=== PATIENT | female | born 1930 | race Caucasian/White ===

== ENCOUNTER 2018-02-17 18:47 | Inpatient (IN) | payer MEDICARE, BC ==
[~2018-02-17] VITALS: Ht 152.4 cm; Wt 77.3 kg
--- NOTE | 2018-02-17 21:43 | PDOC ---
Exam Note: Donaldo Note: Please also refer to the separate dictated note~for this date of service dictated separately.~Patient seen individually. Discussed the patient with Nursing staff reviewed the chart.~Reviewed interim history and current functioning. Reviewed vital signs,~Labs/ Radiology~and current medications noted below. Continue current treatment with the changes noted in the dictated addendum note Current Medications: Meds: Current Medications Acetaminophen (Tylenol) 650 mg PRN Q6HRS PRN PO PAIN / TEMP; Start 02/17/18 at 21:45; Status UNV Multi-Ingredient Ointment (Analgesic [place]) 1 ashely PRN QID PRN TP MUSCLE PAIN; Start 02/17/18 at 21:45; Status UNV Al Hydroxide/Mg Hydroxide (Mylanta Plus Xs) 15 ml PRN AFTMEALHC PRN PO DYSPEPSIA; Start 02/17/18 at 21:45; Status UNV Magnesium Hydroxide (Milk Of Magnesia) 2,400 mg PRN QHS PRN PO CONSTIPATION; Start 02/17/18 at 21:45; Status UNV I have reviewed the current psychotropics carefully including drug interactions. Risk benefit ratio favors no change other than as noted in my dictated progress note. CINTHIA SOMERS MD Feb 17, 2018 21:43
[2018-02-17] MEDS ORDERED: METHYL SALICYLATE/MENTHOL TOPICAL OINTMENT 29GM TUBE. TP PRN (21:45)
[2018-02-17] MEDS ORDERED: ACETAMINOPHEN 325 MG TABLET PO PRN (21:45)
[2018-02-17] MEDS ORDERED: MAG HYDROX/AL HYDROX/SIMETH 30 ML ORAL.SUSP PO PRN (21:45)
[2018-02-17] MEDS ORDERED: MAGNESIUM HYDROXIDE 2,400 MG/30 ML ORAL.SUSP. PO PRN (21:45)
[2018-02-17] MEDS ORDERED: ASPI-630 PO (21:52)
[2018-02-17 22:24] LABS: BASO % 0 % (0-3); EOS # 0.7 x10^3/uL (0.0-0.7); EOS % 9 % (0-3); HEMATOCRIT 37.8 % (36.0-47.0); HEMOGLOBIN 12.6 g/dL (12.0-15.5); LYMPH # 2.3 x10^3/uL (1.0-4.8); LYMPH % 29 % (24-48); MEAN CORPUSCULAR HEMOGLOBIN 32 pg (25-35); MEAN CORPUSCULAR HGB CONC 33 g/dL (31-37); MEAN CORPUSCULAR VOLUME 97 fL (79-100); MONO # 0.5 x10^3/uL (0.0-1.1); MONO % 6 % (0-9); NEUT # 4.4 x10^3uL (1.8-7.7); NEUT % 56 % (31-73); PLATELET COUNT 208 x10^3/uL (140-400); RED BLOOD COUNT 3.89 x10^6/uL (3.50-5.40); RED CELL DISTRIBUTION WIDTH 13.1 % (11.5-14.5); WHITE BLOOD COUNT 7.9 x10^3/uL (4.0-11.0)
[2018-02-17] MEDS ORDERED: ASCO500T2 PO (22:30)
[2018-02-17] MEDS ORDERED: CHOL10003 PO (22:30)
[2018-02-17] MEDS ORDERED: ATOR10TA60 PO (22:30)
[2018-02-17] MEDS ORDERED: CARV3.122 PO (22:30)
[2018-02-17] MEDS ORDERED: ACET325T9 PO (22:30)
[2018-02-17] MEDS ORDERED: CYAN10005 PO (22:30)
[2018-02-17] MEDS ORDERED: MEMA10TA PO (22:30)
[2018-02-17] MEDS ORDERED: FLUV100T2 PO (22:30)
[2018-02-17] MEDS ORDERED: TRAZ-85 PO (22:30)
[2018-02-17] MEDS ORDERED: LACT1CAP6 PO (22:30)
[2018-02-17] MEDS ORDERED: LISI40TA PO (22:30)
[2018-02-17] MEDS ORDERED: OMEP20TA8 PO (22:30)
[2018-02-17 22:39] LABS: ALBUMIN 3.9 g/dL (3.4-5.0); ALBUMIN/GLOBULIN RATIO 1.3 (1.0-1.7); CALCIUM 8.8 mg/dL (8.5-10.1); GFR 52.7; MAGNESIUM 1.8 mg/dL (1.8-2.4); TOTAL BILIRUBIN 0.5 mg/dL (0.2-1.0)
[2018-02-17 22:49] VITALS: BP 134/55
[2018-02-17 22:55] LABS: % BASOS 1 % (0-3); % EOS 2 % (0-5); % LYMPHS 28 % (24-48); % METAS 1 % (0-0); % MONOS 9 % (0-10); % SEGS 59 % (35-66)
[2018-02-17 22:56] LABS: PLT ESTIMATE ADEQUATE (ADEQUATE)
--- NOTE | 2018-02-17 23:25 | NUR ---
Admission Note with Justification for Admission to [facility] Patient admitted to [facility] for protective oversight for emergency stabilization of acute psychiatric crisis. Pt admitted from: [place] Mode of arrival: POV Accompanied By: Family Precipitating behaviors that initiated intake and admission: Increased confusion, Anxious, Paranoid,Thinks someone is stealing her things/rearranging her room. Thinks all of her clothes are wet (when they are not wet). Description of failure of out patient attempts at stabilization in previous setting list behavior and medication trials: Behaviors and assessment findings upon admission: Patient is calm and compliant during initial interaction. Patient is pleasant during conversation and admission assessment. Patient alert and oriented to name, year and that she is in a hospital. Patient has no wounds. patient lung sounds are clear, heart is regular and bowels are active x4. Patient denies any pain at this time. Patient remains in room laying in bed at this time. Plan: Admit for protective oversight for adjustment and stabilization of medications, behaviors and mood. Intense treatment regimen including groups, medication adjustments, therapy, consistent regimen for ADL's, self care, and sleep hygiene. Daily monitoring by Inpatient staff, Psychiatry, and Medical Physician.
[2018-02-18 05:57] VITALS: BP 133/67
--- NOTE | 2018-02-18 06:27 | EKG ---
[address] [address] Test Date: 2018-02-18 Test Time: 05:46:44 Pat Name: RYAN SEGOVIA Department: Room: [address] [place] [address] Gender: F Medical Records Field Technician: SHELLY : 1930 Requested By: CINTHIA SOMERS Order Number: [id number] Reading MD: Pasha Guerrero MD Measurements Intervals Reads Landing Rate: 79 P: 71 OK: 140 QRS: 1 QRSD: 78 T: 58 QT: 372 QTc: 433 Interpretive Statements SINUS RHYTHM Electronically Signed On 02-18-2018 10:26:26 CDT by Pasha Guerrero MD
[2018-02-18] MEDS: CYANOCOBALAMIN (VITAMIN B-12) 1,000 MCG TABLET. PO SCH (07:57)
[2018-02-18] MEDS: PANTOPRAZOLE 40 MG TABLET. PO SCH (07:57)
[2018-02-18] MEDS: ASPIRIN 81 MG TAB.CHEW PO SCH (07:57)
[2018-02-18] MEDS: MEMANTINE 5 MG TABLET. PO SCH ×2 (07:57→20:35)
[2018-02-18] MEDS: ASCORBIC ACID 500 MG TABLET PO SCH (07:57)
[2018-02-18] MEDS: LACTOBACILLUS RHAMNOSUS GG 1 CAPSULE. PO SCH (07:57)
[2018-02-18] MEDS: LISINOPRIL 20 MG TABLET PO SCH (07:58)
[2018-02-18] MEDS: ACETAMINOPHEN 325 MG TABLET PO SCH ×3 (07:58→20:35)
[2018-02-18] MEDS: CARVEDILOL 3.125 MG TABLET PO SCH ×2 (07:58→17:08)
[2018-02-18] MEDS: CHOLECALCIFEROL (VITAMIN D3) 1,000 UNIT TABLET PO SCH (07:59)
[2018-02-18 13:48] LABS: THYROID STIM HORMONE (TSH) 1.684 uIU/mL (0.358-3.740)
[2018-02-18 16:13] VITALS: BP 136/68
[2018-02-18] MEDS ORDERED: DEXTROSE 50% 25 GM / 50ML DISP.SYRIN. IV PRN (18:15)
[2018-02-18 20:08] LABS: THYROXINE 6.2 ug/dL (4.5-12.0)
--- NOTE | 2018-02-18 20:22 | CONS ---
DATE OF CONSULTATION: 02/18/2018 REASON FOR CONSULTATION: Medical management. HISTORY OF PRESENT ILLNESS: The patient is an 87-year-old female, who was basically evaluated at the [facility] Emergency Room. She normally lives at [facility] in an independent living apartment. Staff at [facility] had made contact the patient's son who is also her DPOA, they report that she has been demonstrating change in behavior over the last few weeks. She is reporting that an unknown person is coming into her apartment and moving her belongings around in her drawer. Son reports the patient will often misplace her watches and clothing items and when she finds them she will blame this unknown intruder for moving her things. The patient is also calling staff up to 10 times each day, not remembering that she had just called. The patient with dementia diagnosed, but son reported that perhaps dementia is worsening. She was also noted to be cries often and is sad at the of a fellow [facility] member. The son expresses his concern about the patient's level of paranoia and the community requested a psychiatric evaluation to determine whether the patient is able to live in an independent living apartment or perhaps needs to be changed to a higher level of care. She was evaluated in the [facility] Emergency Room and was transferred to [facility] for inpatient psychiatric stabilization. PAST MEDICAL HISTORY: Her past medical history is significant for atrial fibrillation and dementia, diverticulitis of colon, type 2 diabetes, colon polyps, GI bleed, history of TIA, hyperlipidemia, hypertension, osteoarthritis, osteoporosis. PAST SURGICAL HISTORY: Past surgical history is significant for excision of a cyst from the back, colonoscopy, hysterectomy, laparoscopic gastrostomy with repair of ulcer and EEG. FAMILY HISTORY: Family history is positive for cancer in her father. SOCIAL HISTORY: She is a . She lives in an independent skilled nursing assisted living. She never smoked, does not drink alcohol, or do recreational drugs. REVIEW OF SYSTEMS: As per history of present illness. ALLERGIES: SHE IS ALLERGIC TO CLINDAMYCIN, CODEINE, HYDROCODONE, PROPOXYPHENE, AND TRAMADOL. MEDICATIONS: She is currently on following medications: She is on atorvastatin calcium 10 mg at bedtime, carvedilol 3.125 mg twice a day, lisinopril 40 mg once a day, aspirin 81 mg once a day, Tylenol 650 mg 3 times a day, fluvoxamine maleate 100 mg p.o. b.i.d., trazodone 50 mg at bedtime, Namenda 5 mg twice a day, lactobacillus acidophilus 1 capsule daily, omeprazole 20 mg once a day, cyanocobalamin 1000 mg once a day, ascorbic acid 500 mg daily. She is also on cholecalciferol 1000 international units once a day. PHYSICAL EXAMINATION: GENERAL: When I examined her, she was sitting comfortably in her chair, eating her supper without no apparent distress. She was slightly pale, but no jaundice, cyanosis, or thyromegaly. No jugular venous distension. No lower limb edema. VITAL SIGNS: Her heart rate was 80, blood pressure was 136/68, temperature was 98.3, respiratory rate 20, and oxygen saturation was 96%. HEENT: Examination of the head, eyes, ears, nose and throat showed normocephalic, atraumatic. NECK: Supple. HEART: Showed normal first and second heart sounds with no gallop, rub or murmur. CHEST: Clear to auscultation. No crepitation or rhonchi. ABDOMEN: Distended, soft, nontender. NEUROLOGIC: She is awake, alert, but confused, seemed to be extremely paranoid and with marked flight of ideas; however, all cranial nerves are intact. EXTREMITIES: She moves extremities without difficulty. She ambulates without assistance or assistive devices. LABORATORY DATA: Her lab work showed a white cell count 7900, hemoglobin 13, hematocrit 38, MCV 97, and platelet count of 208,000 with normal manual differential. Serum sodium was 134, potassium 4, chloride 98, bicarbonate 25, anion gap of 11, BUN 15, creatinine 1, estimated GFR was 53 mL per minute, glucose 157, calcium was 8.8, magnesium was 1.8. Serum iron was 44, TIBC was 300, and percent saturation was 15%. Total bilirubin, AST, ALT, alkaline phosphatase was normal. Total protein 7, albumin 3.9. Her serum triglycerides were 71, total cholesterol and 11, LDL was 39, VLDL was 14, and HDL was 58, and the ratio was 1. Her vitamin B12 was 1241 picogram/mL. A 25-hydroxy vitamin D3 was 44 and TSH was normal at 1.84. Her Treponema pallidum antibodies were nonreactive. ASSESSMENT AND PLAN: So, basically this is an 87-year-old female patient who was [facility] on the account of increased delusion and paranoia, reporting that somebody is coming into her apartment and moving her belongings around. She is also very forgetful with marked swings in her mood. All these in a background of history of dementia. She has multiple medical problems including hypertension, hyperlipidemia, gastroesophageal reflux disease, atrial fibrillation, type 2 diabetes as well as osteoporosis and osteoarthritis. Her vital signs are stable as well as all her lab works and all her medication seemed to be appropriate, although I do not see any medication for her diabetes. We will do at least Accu-Cheks ____ 24-48 hours to make sure that her blood sugar is within normal range and I will check also hemoglobin A1c. Thank you, Dr. Voss for allowing me to participate in the care of this patient. CARISA COOK MD DR: SHIRLEY/melisa JOB#: [id number] / [id number]
[2018-02-18] MEDS: ATORVASTATIN CALCIUM 10 MG TABLET. PO SCH (20:36)
--- NOTE | 2018-02-18 20:59 | PDOC ---
Exam Note: Donaldo Note: Please also refer to the separate dictated note~for this date of service dictated separately.~Patient seen individually. Discussed the patient with Nursing staff reviewed the chart.~Reviewed interim history and current functioning. Reviewed vital signs,~Labs/ Radiology~and current medications noted below. Continue current treatment with the changes noted in the dictated addendum note Assessment: Vital Signs: Vital Signs Date Time Temp Pulse Resp B/P (MAP) Pulse Ox O2 Delivery O2 Flow Rate FiO2 02/18/18 17:08 80 136/68 02/18/18 16:13 98.3 20 96 02/17/18 22:49 Room Air I&O Intake and Output 02/18/18 07:00 Intake Total 0 ml Balance 0 ml Intake Oral 0 ml Labs: Laboratory Tests Test 02/17/18 22:00 White Blood Count 7.9 x10^3/uL (4.0-11.0) Red Blood Count 3.89 x10^6/uL (3.50-5.40) Hemoglobin 12.6 g/dL (12.0-15.5) Hematocrit 37.8 % (36.0-47.0) Mean Corpuscular Volume 97 fL (79-100) Mean Corpuscular Hemoglobin 32 pg (25-35) Mean Corpuscular Hemoglobin Concent 33 g/dL (31-37) Red Cell Distribution Width 13.1 % (11.5-14.5) Platelet Count 208 x10^3/uL (140-400) Neutrophils (%) (Auto) 56 % (31-73) Lymphocytes (%) (Auto) 29 % (24-48) Monocytes (%) (Auto) 6 % (0-9) Eosinophils (%) (Auto) 9 % (0-3) H Basophils (%) (Auto) 0 % (0-3) Neutrophils # (Auto) 4.4 x10^3uL (1.8-7.7) Lymphocytes # (Auto) 2.3 x10^3/uL (1.0-4.8) Monocytes # (Auto) 0.5 x10^3/uL (0.0-1.1) Eosinophils # (Auto) 0.7 x10^3/uL (0.0-0.7) Basophils # (Auto) 0.0 x10^3/uL (0.0-0.2) Segmented Neutrophils % 59 % (35-66) Lymphocytes % 28 % (24-48) Monocytes % 9 % (0-10) Eosinophils % 2 % (0-5) Basophils % 1 % (0-3) Metamyelocytes % 1 % (0-0) H Platelet Estimate Adequate (ADEQUATE) Sodium Level 134 mmol/L (136-145) L Potassium Level 4.0 mmol/L (3.5-5.1) Chloride Level 98 mmol/L (98-107) Carbon Dioxide Level 25 mmol/L (21-32) Anion Gap 11 (6-14) Blood Urea Nitrogen 15 mg/dL (7-20) Creatinine 1.0 mg/dL (0.6-1.0) Estimated GFR (Cockcroft-Gault) 52.7 BUN/Creatinine Ratio 15 (6-20) Glucose Level 157 mg/dL (70-99) H Calcium Level 8.8 mg/dL (8.5-10.1) Magnesium Level 1.8 mg/dL (1.8-2.4) Iron Level 44 ug/dL (50-170) L Total Iron Binding Capacity 300 ug/dL (250-450) Iron Saturation 15 % (15-34) Total Bilirubin 0.5 mg/dL (0.2-1.0) Aspartate Amino Transferase (AST) 22 U/L (15-37) Alanine Aminotransferase (ALT) 20 U/L (14-59) Alkaline Phosphatase 81 U/L (46-116) Total Protein 7.0 g/dL (6.4-8.2) Albumin 3.9 g/dL (3.4-5.0) Albumin/Globulin Ratio 1.3 (1.0-1.7) Triglycerides Level 71 mg/dL (0-150) Cholesterol Level 111 mg/dL (0-200) LDL Cholesterol, Calculated 39 mg/dL (0-100) VLDL Cholesterol, Calculated 14 mg/dL (0-40) Non-HDL Cholesterol Calculated 53 mg/dL (0-129) HDL Cholesterol 58 mg/dL (40-60) Cholesterol/HDL Ratio 1.0 Vitamin B12 Level 1241 pg/mL (247-911) H 25-Hydroxy Vitamin D Total 44.4 ng/mL (30-100) Thyroid Stimulating Hormone (TSH) 1.684 uIU/mL (0.358-3.740) Thyroxine (T4) 6.2 ug/dL (4.5-12.0) Total Triiodothyronine (TT3) 120 ng/dL (71-180) Treponema pallidum Antibody Nonreactive (Nonreactive) Current Medications: Meds: Current Medications Acetaminophen (Tylenol) 650 mg PRN Q6HRS PRN PO PAIN / TEMP; Start 02/17/18 at 21:45 Multi-Ingredient Ointment (Analgesic [place]) 1 ashely PRN QID PRN TP MUSCLE PAIN; Start 02/17/18 at 21:45 Al Hydroxide/Mg Hydroxide (Mylanta Plus Xs) 15 ml PRN AFTMEALHC PRN PO DYSPEPSIA; Start 02/17/18 at 21:45 Magnesium Hydroxide (Milk Of Magnesia) 2,400 mg PRN QHS PRN PO CONSTIPATION; Start 02/17/18 at 21:45 Acetaminophen (Tylenol) 650 mg TID PO Last administered on 02/18/18at 20:35; Start 02/18/18 at 09:00 Ascorbic Acid (Vitamin C) 1,000 mg DAILY PO Last administered on 02/18/18at 07: 57; Start 02/18/18 at 09:00 Vitamin D (Vitamin D3) 1,000 unit DAILY PO Last administered on 02/18/18at 07:59 ; Start 02/18/18 at 09:00 Cyanocobalamin (Vitamin B-12) 1,000 mcg DAILY PO Last administered on at 07:57; Start 02/18/18 at 09:00 Aspirin (Children'S Aspirin) 81 mg DAILYWBKFT PO Last administered on at 07:57; Start 02/18/18 at 08:00 Atorvastatin Calcium (Lipitor) 10 mg QHS PO Last administered on 02/18/18at 20: 36; Start 02/18/18 at 21:00 Carvedilol (Coreg) 3.125 mg BIDWMEALS PO Last administered on 02/18/18 17:08; Start 02/18/18 at 08:00 Lactobacillus Rhamnosus (Culturelle) 1 cap DAILY PO Last administered on 07:57; Start 02/18/18 at 09:00 Lisinopril (Prinivil) 40 mg DAILY PO Last administered on 02/18/18at 07:58; Start 02/18/18 at 09:00 Pantoprazole Sodium (Protonix) 40 mg DAILYAC PO Last administered on 02/18/18at 07:57; Start 02/18/18 at 07:30 Fluvoxamine Maleate (Luvox) 100 mg BID PO Last administered on 02/18/18at 20:35 ; Start 02/18/18 at 09:00 Memantine (Namenda) 5 mg BID PO Last administered on 02/18/18at 20:35; Start at 09:00 Trazodone HCl (Desyrel) 50 mg PRN QHS PRN PO INSOMNIA; Start 02/17/18 at 23:00 Insulin Human Lispro (HumaLOG) 0-5 UNITS TIDWMEALS SQ ; Start 02/19/18 at 08:00 Dextrose 12.5 gm PRN Q15MIN PRN IV SEE COMMENTS; Start 02/18/18 at 18:15 Olanzapine (ZyPREXA ZYDIS) 2.5 mg PRN Q2HR PRN PO PSYCHOSIS; Start 02/18/18 at 18:30 Active Scripts Active Reported Fluvoxamine Maleate 100 Mg Tablet 100 Mg PO BID Carvedilol 3.125 Mg Tablet 3.125 Mg PO BIDWMEALS Vitamin D3 (Cholecalciferol (Vitamin D3)) 1,000 Unit Tablet 1,000 Unit PO DAILY Vitamin C (Ascorbic Acid) 500 Mg Tablet 1,000 Mg PO DAILY Probiotic (Lactobacillus Acidophilus) 1 Each Capsule 1 Cap PO DAILY Tylenol (Acetaminophen) 325 Mg Tablet 650 Mg PO TID Namenda (Memantine Hcl) 10 Mg Tablet 5 Mg PO BID Vitamin B-12 (Cyanocobalamin (Vitamin B-12)) 1,000 Mcg Tablet 1,000 Mcg PO DAILY Trazodone Hcl 50 Mg Tablet 50 Mg PO PRN QHS PRN Omeprazole 20 Mg Tablet.dr 20 Mg PO DAILY Lisinopril 40 Mg Tablet 40 Mg PO DAILY Atorvastatin Calcium 10 Mg Tablet 10 Mg PO QHS Aspirin 81 Mg Tab.chew 81 Mg PO DAILY I have reviewed the current psychotropics carefully including drug interactions. Risk benefit ratio favors no change other than as noted in my dictated progress note. Diagnosis: Problems: (1) Anxiety disorder (2) Confusion (3) Behavior problem (4) Delusion CINTHIA SOMERS MD Feb 18, 2018 20:59
[2018-02-19 01:12] LABS: HEMOGLOBIN A1C 5.8 % (4.8-5.6)
[2018-02-19 05:57] VITALS: BP 156/102
[2018-02-19] MEDS: PANTOPRAZOLE 40 MG TABLET. PO SCH (07:49)
[2018-02-19] MEDS: LISINOPRIL 20 MG TABLET PO SCH (07:50)
[2018-02-19] MEDS: ASPIRIN 81 MG TAB.CHEW PO SCH (07:50)
[2018-02-19] MEDS: CYANOCOBALAMIN (VITAMIN B-12) 1,000 MCG TABLET. PO SCH (07:50)
[2018-02-19] MEDS: CHOLECALCIFEROL (VITAMIN D3) 1,000 UNIT TABLET PO SCH (07:51)
[2018-02-19] MEDS: ACETAMINOPHEN 325 MG TABLET PO SCH ×3 (07:51→19:56)
[2018-02-19] MEDS: LACTOBACILLUS RHAMNOSUS GG 1 CAPSULE. PO SCH (07:51)
[2018-02-19] MEDS: CARVEDILOL 3.125 MG TABLET PO SCH ×2 (07:51→17:51)
[2018-02-19] MEDS: ASCORBIC ACID 500 MG TABLET PO SCH (07:51)
[2018-02-19] MEDS: MEMANTINE 5 MG TABLET. PO SCH ×2 (07:51→19:56)
[2018-02-19] MEDS: INSULIN LISPRO 300 UNITS/3 ML INSULN.PEN. SQ SCH ×3 (07:52→17:00)
--- NOTE | 2018-02-19 11:19 | NUR ---
Behavior Intervention Response and Plan: BIRP Note: Behavior: Assumed Care of patient, patient located in Dining Room at shift change. Patient exhibited the following behavior Disorganized, Interactive, Compliant. Brief assessment on rounds of vital signs, medication needs, lab studies, and pain. Treatment plan problems . Intervention: Patient assessed and the following interventions initiated safety checks 15 Minute Checks Cognitive Assessment , Head to toe Assessment , Medications. Response: After interactions and interventions patient responded in the following manner, Disorganized , Compliant ,Social. Continue to assess behaviors and condition will continue to monitor throughout the shift as needed. Patient educated on ADL's, and hand hygiene. Plan: Continue to monitor Master Treatment Plan for patient's progress toward short term goals of Decreased Agitation, Decreased Anxiety, intermodal dispatcher goals to return to previous living setting vs placement. Continue to assess patient for changes in above assessment. Monitor for medication needs, pain, and safety concerns. Hourly rounding performed to ensure safe environment.
--- NOTE | 2018-02-19 12:43 | NUR ---
SW reviewed pt insurance information, pt has Medicare primary per Face sheet, intake and [employer].
--- NOTE | 2018-02-19 12:45 | NUR ---
SW met with pt 1:1 pt states she has lived at her current assisted living apartment for many years, however unable to provide details. Pt reports she was raised in [place], [place] as an only child on a farm. Pt states she graduated from High school and moved to the area and attended Business college. 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 Pt reports she returned to [place] and her 1st Cuca they had three boys. Pt states she is unsure how long they were . Pt reports they . 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 Pt could only provide the year and had difficulty at times recalling information. SW called and left message for her son.
--- NOTE | 2018-02-19 13:44 | HP ---
ADMIT DATE: 02/18/2018 PSYCHIATRIC ADMISSION HISTORY/EVALUATION This late entry 02/18/2018 covers elements not covered in my initial note of 02/18/2018. SUMMARY OF PROGRESS: Met with the patient in evening of 02/18/2018 for this evaluation. Previously discussed the patient with nursing staff several times, both prior to the patient's admission to review admission criteria and since admission on account of her ongoing restlessness, agitation. IDENTIFYING DATA: The patient is an 87-year-old female referred to us from [facility] Emergency Room where she presented from [facility] in [place], [place], referred by Dr. Barnard, her primary care physician, on account of increased confusion, worsening anxiety, being paranoid, believing someone is entering her room and moving her things around. She is calling family members 7 or 8 times a day. Symptoms have been worsening for about 2 weeks. She believes people are stealing from her. She has been inpatient at [facility] Psychiatry in the past many years ago. Behaviors are unmanageable at the [facility]. She was referred to the Emergency Room at [facility], then referred to us for inpatient psychiatric hospitalization and admitted by her son, Jabier Dawson, who is her power of assistant district attorney. CHIEF COMPLAINT: "I have been here 10 days." HISTORY OF PRESENT ILLNESS: The patient has a history of dementia, Alzheimer's vascular type. She has been residing at the [facility] for some time, but over the past 2 weeks behaviors have been increasingly disruptive as noted above. She has had sleep and appetite changes, appeared quite paranoid. No active suicidal or homicidal ideation. No clear symptoms of bipolar disorder. PAST PSYCHIATRIC HISTORY: As above. PAST MEDICAL HISTORY: Type 2 diabetes mellitus, diverticulitis, inflammation of small and large intestine, hyperlipidemia, osteoarthritis, paroxysmal atrial fibrillation, chronic constipation. ACCU-CHEKS: A.c. and at bedtime. DIET: Regular. AMBULATES: Ad edy. UA: Negative on 02/17/2018. CODE STATUS: DNR. ALLERGIES: CLINDAMYCIN, CODEINE, HYDROCODONE, TRAMADOL. CURRENT PSYCHOTROPICS: Xanax 0.25 mg at bedtime p.r.n. which we will discontinue, Luvox 100 mg b.i.d. for marked obsessiveness, Namenda 5 mg b.i.d., trazodone 50 mg at bedtime p.r.n. FAMILY HISTORY: Noncontributory. SOCIAL HISTORY: No history of alcohol, drug abuse, physical, sexual or elder abuse. She is not known to be a perpetrator. REACTION TO HOSPITALIZATION: The patient accepting of this. ASSETS: Supportive, living at the above assisted living, and support from her son. MENTAL STATUS EXAMINATION: The patient was seen individually in evening of 02/18/2018. She is oriented to herself and today is confused, where she is and why she has had to come here. She was unable to tell me the date other than looking at the calendar on the wall. REVIEW OF SYSTEMS: No CV, , pulmonary, eye, ENT system symptoms on review. Insight, judgment, recent, remote memory, attention, concentration, fund of knowledge is poor, consistent with her diagnoses mentioned in my initial note. IMPRESSION: Major neurocognitive disorder, Alzheimer, vascular with delusion, depression, behavioral disturbance; anxiety disorder, unspecified; impulse control disorder, unspecified. Rest as above. PLAN: Admit to Geropsychiatry Unit at [facility]. I will see the patient daily individually from a psychiatric standpoint, medical followup per Dr. Coronado/Dr. Carrion. We will go ahead and add Zyprexa 2.5 mg q. 2 hours p.r.n. psychosis, agitation, max 10 mg in [address] head if one has not been done in the recent past. Continue rest of the psychotropics, discontinue Xanax 0.25 mg at bedtime p.r.n. Continue Luvox, Namenda, trazodone. Make further adjustments in psychotropics depending on baseline assessment. MAN Morgan SOMERS MD DR: ADRIENNE/melisa JOB#: [id number] / [id number]
[2018-02-19 16:21] VITALS: BP 113/69
--- NOTE | 2018-02-19 16:59 | NUR ---
pt up for meals. marley. was very giddy in am. anxious towards lunch as peer had been yelling most of am. has been compliant with meds and cares.
--- NOTE | 2018-02-19 18:36 | PDOC2 ---
CONSULT Date of Admission DATE: 02/19/18 TIME: 18:17 Reason for Consult: Medical Management Referring Physician: Dr Voss Source: Caregiver, Chart review, Patient History of Present Illness Patient is 87/F who was directly [facility] due to reported delusions and paranoid thoughts. 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 On my evaluation she is very pleasant and cooperative. She is confused and has difficulty finding words at times. She does not seem to be aware of her medical conditions as she denies having DM. On questioning her today she denies any complaints. She has DNR Past Medical History In addition to those listed above: DM2, diverticulitis, inflammation of large and small intestine, hyperlipidemia, osteoarthritis, paroxysmal atrial fibrillation, constipation Current Medications Current Medications Acetaminophen (Tylenol) 650 mg PRN Q6HRS PRN PO PAIN / TEMP; Start 02/17/18 at 21:45 Multi-Ingredient Ointment (Analgesic [place]) 1 ashely PRN QID PRN TP MUSCLE PAIN; Start 02/17/18 at 21:45 Al Hydroxide/Mg Hydroxide (Mylanta Plus Xs) 15 ml PRN AFTMEALHC PRN PO DYSPEPSIA; Start 02/17/18 at 21:45 Magnesium Hydroxide (Milk Of Magnesia) 2,400 mg PRN QHS PRN PO CONSTIPATION; Start 02/17/18 at 21:45 Acetaminophen (Tylenol) 650 mg TID PO Last administered on 02/19/18at 13:18; Start 02/18/18 at 09:00 Ascorbic Acid (Vitamin C) 1,000 mg DAILY PO Last administered on 02/19/18at 07: 51; Start 02/18/18 at 09:00 Vitamin D (Vitamin D3) 1,000 unit DAILY PO Last administered on 02/19/18at 07:51 ; Start 02/18/18 at 09:00 Cyanocobalamin (Vitamin B-12) 1,000 mcg DAILY PO Last administered on at 07:50; Start 02/18/18 at 09:00 Aspirin (Children'S Aspirin) 81 mg DAILYWBKFT PO Last administered on at 07:50; Start 02/18/18 at 08:00 Atorvastatin Calcium (Lipitor) 10 mg QHS PO Last administered on 02/18/18at 20: 36; Start 02/18/18 at 21:00 Carvedilol (Coreg) 3.125 mg BIDWMEALS PO Last administered on 02/19/18at 17:51; Start 02/18/18 at 08:00 Lactobacillus Rhamnosus (Culturelle) 1 cap DAILY PO Last administered on at 07:51; Start 02/18/18 at 09:00 Lisinopril (Prinivil) 40 mg DAILY PO Last administered on 02/19/18at 07:50; Start 02/18/18 at 09:00 Pantoprazole Sodium (Protonix) 40 mg DAILYAC PO Last administered on 02/19/18at 07:49; Start 02/18/18 at 07:30 Fluvoxamine Maleate (Luvox) 100 mg BID PO Last administered on 02/19/18at 07:50 ; Start 02/18/18 at 09:00 Memantine (Namenda) 5 mg BID PO Last administered on 02/19/18at 07:51; Start at 09:00 Trazodone HCl (Desyrel) 50 mg PRN QHS PRN PO INSOMNIA; Start 02/17/18 at 23:00 Insulin Human Lispro (HumaLOG) 0-5 UNITS TIDWMEALS SQ ; Start 02/19/18 at 08:00 Dextrose 12.5 gm PRN Q15MIN PRN IV SEE COMMENTS; Start 02/18/18 at 18:15 Olanzapine (ZyPREXA ZYDIS) 2.5 mg PRN Q2HR PRN PO PSYCHOSIS; Start 02/18/18 at 18:30 Active Scripts Active Reported Fluvoxamine Maleate 100 Mg Tablet 100 Mg PO BID Carvedilol 3.125 Mg Tablet 3.125 Mg PO BIDWMEALS Vitamin D3 (Cholecalciferol (Vitamin D3)) 1,000 Unit Tablet 1,000 Unit PO DAILY Vitamin C (Ascorbic Acid) 500 Mg Tablet 1,000 Mg PO DAILY Probiotic (Lactobacillus Acidophilus) 1 Each Capsule 1 Cap PO DAILY Tylenol (Acetaminophen) 325 Mg Tablet 650 Mg PO TID Namenda (Memantine Hcl) 10 Mg Tablet 5 Mg PO BID Vitamin B-12 (Cyanocobalamin (Vitamin B-12)) 1,000 Mcg Tablet 1,000 Mcg PO DAILY Trazodone Hcl 50 Mg Tablet 50 Mg PO PRN QHS PRN Omeprazole 20 Mg Tablet.dr 20 Mg PO DAILY Lisinopril 40 Mg Tablet 40 Mg PO DAILY Atorvastatin Calcium 10 Mg Tablet 10 Mg PO QHS Aspirin 81 Mg Tab.chew 81 Mg PO DAILY Allergies: Coded Allergies: clindamycin (Verified Allergy, Intermediate, 02/18/18) codeine (Verified Allergy, Intermediate, 02/18/18) hydrocodone (Verified Allergy, Intermediate, 02/18/18) propoxyphene (Verified Allergy, Intermediate, 02/18/18) tramadol (Verified Allergy, Intermediate, 02/18/18) Physical Exam sitting in activity room visiting with others General: Alert, Cooperative, No acute distress HEENT: Atraumatic, PERRLA, Mucous membr. moist/pink Lungs: Clear to auscultation, Normal air movement Heart: Regular rate, No murmurs Abdomen: Soft, No tenderness Extremities: Normal pulses, Other (1+ nonpitting LE edema) Neuro: Normal tone, Sensation intact, Cranial nerves 3-12 NL Psych/Mental Status: Other (awake, alert, confused, answers appropriately, cooperative) VITALS Vital Signs Date Time Temp Pulse Resp B/P (MAP) Pulse Ox O2 Delivery O2 Flow Rate FiO2 02/19/18 17:51 77 113/69 02/19/18 16:21 97.6 18 94 02/17/18 22:49 Room Air Labs Laboratory Tests Test 02/17/18 22:00 02/19/18 07:18 02/19/18 12:11 02/19/18 17:02 White Blood Count 7.9 x10^3/uL (4.0-11.0) Red Blood Count 3.89 x10^6/uL (3.50-5.40) Hemoglobin 12.6 g/dL (12.0-15.5) Hematocrit 37.8 % (36.0-47.0) Mean Corpuscular Volume 97 fL (79-100) Mean Corpuscular Hemoglobin 32 pg (25-35) Mean Corpuscular Hemoglobin Concent 33 g/dL (31-37) Red Cell Distribution Width 13.1 % (11.5-14.5) Platelet Count 208 x10^3/uL (140-400) Neutrophils (%) (Auto) 56 % (31-73) Lymphocytes (%) (Auto) 29 % (24-48) Monocytes (%) (Auto) 6 % (0-9) Eosinophils (%) (Auto) 9 % (0-3) Basophils (%) (Auto) 0 % (0-3) Neutrophils # (Auto) 4.4 x10^3uL (1.8-7.7) Lymphocytes # (Auto) 2.3 x10^3/uL (1.0-4.8) Monocytes # (Auto) 0.5 x10^3/uL (0.0-1.1) Eosinophils # (Auto) 0.7 x10^3/uL (0.0-0.7) Basophils # (Auto) 0.0 x10^3/uL (0.0-0.2) Segmented Neutrophils % 59 % (35-66) Lymphocytes % 28 % (24-48) Monocytes % 9 % (0-10) Eosinophils % 2 % (0-5) Basophils % 1 % (0-3) Metamyelocytes % 1 % (0-0) Platelet Estimate Adequate (ADEQUATE) Sodium Level 134 mmol/L (136-145) Potassium Level 4.0 mmol/L (3.5-5.1) Chloride Level 98 mmol/L (98-107) Carbon Dioxide Level 25 mmol/L (21-32) Anion Gap 11 (6-14) Blood Urea Nitrogen 15 mg/dL (7-20) Creatinine 1.0 mg/dL (0.6-1.0) Estimated GFR (Cockcroft-Gault) 52.7 BUN/Creatinine Ratio 15 (6-20) Glucose Level 157 mg/dL (70-99) Hemoglobin A1c 5.8 % (4.8-5.6) Calcium Level 8.8 mg/dL (8.5-10.1) Magnesium Level 1.8 mg/dL (1.8-2.4) Iron Level 44 ug/dL (50-170) Total Iron Binding Capacity 300 ug/dL (250-450) Iron Saturation 15 % (15-34) Total Bilirubin 0.5 mg/dL (0.2-1.0) Aspartate Amino Transf (AST/SGOT) 22 U/L (15-37) Alanine Aminotransferase (ALT/SGPT) 20 U/L (14-59) Alkaline Phosphatase 81 U/L (46-116) Total Protein 7.0 g/dL (6.4-8.2) Albumin 3.9 g/dL (3.4-5.0) Albumin/Globulin Ratio 1.3 (1.0-1.7) Triglycerides Level 71 mg/dL (0-150) Cholesterol Level 111 mg/dL (0-200) LDL Cholesterol, Calculated 39 mg/dL (0-100) VLDL Cholesterol, Calculated 14 mg/dL (0-40) Non-HDL Cholesterol Calculated 53 mg/dL (0-129) HDL Cholesterol 58 mg/dL (40-60) Cholesterol/HDL Ratio 1.0 Vitamin B12 Level 1241 pg/mL (247-911) 25-Hydroxy Vitamin D Total 44.4 ng/mL (30-100) Thyroid Stimulating Hormone (TSH) 1.684 uIU/mL (0.358-3.740) Thyroxine (T4) 6.2 ug/dL (4.5-12.0) Total Triiodothyronine 120 ng/dL (71-180) Treponema pallidum Antibody Nonreactive (Nonreactive) Glucose (Fingerstick) 115 mg/dL (70-99) 86 mg/dL (70-99) 105 mg/dL (70-99) Assessment/Plan 87 year old female admitted to [facility] for delusions and paranoia. Her current medical problems appear to be stable with home medications. Available labs and vitals are unremarkable. Will follow for pending labs and make necessary recommendations. Thank you Dr Voss for allowing me to participate in the care of this patient. WILLAM CHANDLER DO Feb 19, 2018 6:36 pm
[2018-02-19] MEDS: ATORVASTATIN CALCIUM 10 MG TABLET. PO SCH (19:56)
[2018-02-19 20:47] LABS: BACTERIA,URINE 0 /HPF (0-FEW); BILIRUBIN,URINE NEG (NEG); CLARITY,URINE CLEAR; COLOR,URINE STRAW; GLUCOSE,URINE NEG (NEG); NITRITE,URINE NEG (NEG); SQUAMOUS EPITHELIAL CELL,UR FEW /LPF; UROBILINOGEN,URINE 0.2 mg/dL (0.2 mg/dL)
--- NOTE | 2018-02-19 20:56 | PDOC ---
Exam Note: Donaldo Note: Please also refer to the separate dictated note~for this date of service dictated separately.~Patient seen individually. Discussed the patient with Nursing staff reviewed the chart.~Reviewed interim history and current functioning. Reviewed vital signs,~Labs/ Radiology~and current medications noted below. Continue current treatment with the changes noted in the dictated addendum note Assessment: Vital Signs: Vital Signs Date Time Temp Pulse Resp B/P (MAP) Pulse Ox O2 Delivery O2 Flow Rate FiO2 02/19/18 17:51 77 113/69 02/19/18 16:21 97.6 18 94 02/17/18 22:49 Room Air I&O Intake and Output 02/19/18 07:00 Intake Total 1080 ml Balance 1080 ml Intake Oral 1080 ml Labs: Laboratory Tests Test 02/19/18 07:18 02/19/18 12:11 02/19/18 17:02 02/19/18 19:05 Glucose (Fingerstick) 115 mg/dL (70-99) H 86 mg/dL (70-99) 105 mg/dL (70-99) H 165 mg/dL (70-99) H Current Medications: Meds: Current Medications Acetaminophen (Tylenol) 650 mg PRN Q6HRS PRN PO PAIN / TEMP; Start 02/17/18 at 21:45 Multi-Ingredient Ointment (Analgesic [place]) 1 ashely PRN QID PRN TP MUSCLE PAIN; Start 02/17/18 at 21:45 Al Hydroxide/Mg Hydroxide (Mylanta Plus Xs) 15 ml PRN AFTMEALHC PRN PO DYSPEPSIA; Start 02/17/18 at 21:45 Magnesium Hydroxide (Milk Of Magnesia) 2,400 mg PRN QHS PRN PO CONSTIPATION; Start 02/17/18 at 21:45 Acetaminophen (Tylenol) 650 mg TID PO Last administered on 02/19/18at 19:56; Start 02/18/18 at 09:00 Ascorbic Acid (Vitamin C) 1,000 mg DAILY PO Last administered on 02/19/18at 07: 51; Start 02/18/18 at 09:00 Vitamin D (Vitamin D3) 1,000 unit DAILY PO Last administered on 02/19/18at 07:51 ; Start 02/18/18 at 09:00 Cyanocobalamin (Vitamin B-12) 1,000 mcg DAILY PO Last administered on at 07:50; Start 02/18/18 at 09:00 Aspirin (Children'S Aspirin) 81 mg DAILYWBKFT PO Last administered on at 07:50; Start 02/18/18 at 08:00 Atorvastatin Calcium (Lipitor) 10 mg QHS PO Last administered on 02/19/18 19: 56; Start 02/18/18 at 21:00 Carvedilol (Coreg) 3.125 mg BIDWMEALS PO Last administered on 02/19/18 17:51; Start 02/18/18 at 08:00 Lactobacillus Rhamnosus (Culturelle) 1 cap DAILY PO Last administered on 07:51; Start 02/18/18 at 09:00 Lisinopril (Prinivil) 40 mg DAILY PO Last administered on 02/19/18at 07:50; Start 02/18/18 at 09:00 Pantoprazole Sodium (Protonix) 40 mg DAILYAC PO Last administered on 02/19/18at 07:49; Start 02/18/18 at 07:30 Fluvoxamine Maleate (Luvox) 100 mg BID PO Last administered on 02/19/18 19:56 ; Start 02/18/18 at 09:00 Memantine (Namenda) 5 mg BID PO Last administered on 02/19/18 19:56; Start at 09:00 Trazodone HCl (Desyrel) 50 mg PRN QHS PRN PO INSOMNIA; Start 02/17/18 at 23:00 Insulin Human Lispro (HumaLOG) 0-5 UNITS TIDWMEALS SQ ; Start 02/19/18 at 08:00 Dextrose 12.5 gm PRN Q15MIN PRN IV SEE COMMENTS; Start 02/18/18 at 18:15 Olanzapine (ZyPREXA ZYDIS) 2.5 mg PRN Q2HR PRN PO PSYCHOSIS; Start 02/18/18 at 18:30 Buspirone HCl (Buspar) 5 mg BID@0900,1300 PO ; Start 02/20/18 at 09:00 Active Scripts Active Reported Fluvoxamine Maleate 100 Mg Tablet 100 Mg PO BID Carvedilol 3.125 Mg Tablet 3.125 Mg PO BIDWMEALS Vitamin D3 (Cholecalciferol (Vitamin D3)) 1,000 Unit Tablet 1,000 Unit PO DAILY Vitamin C (Ascorbic Acid) 500 Mg Tablet 1,000 Mg PO DAILY Probiotic (Lactobacillus Acidophilus) 1 Each Capsule 1 Cap PO DAILY Tylenol (Acetaminophen) 325 Mg Tablet 650 Mg PO TID Namenda (Memantine Hcl) 10 Mg Tablet 5 Mg PO BID Vitamin B-12 (Cyanocobalamin (Vitamin B-12)) 1,000 Mcg Tablet 1,000 Mcg PO DAILY Trazodone Hcl 50 Mg Tablet 50 Mg PO PRN QHS PRN Omeprazole 20 Mg Tablet.dr 20 Mg PO DAILY Lisinopril 40 Mg Tablet 40 Mg PO DAILY Atorvastatin Calcium 10 Mg Tablet 10 Mg PO QHS Aspirin 81 Mg Tab.chew 81 Mg PO DAILY I have reviewed the current psychotropics carefully including drug interactions. Risk benefit ratio favors no change other than as noted in my dictated progress note. Diagnosis: Problems: (1) Anxiety disorder (2) Confusion (3) Behavior problem (4) Delusion CINTHIA SOMERS MD Feb 19, 2018 20:56
--- NOTE | 2018-02-20 00:23 | NUR ---
Behavior Intervention Response and Plan: BIRP Note: Behavior: Assumed Care of patient, patient located in Patient Room at shift change. Patient exhibited the following behavior Anxious, Withdrawn, Cooperative. Brief assessment on rounds of vital signs, medication needs, lab studies, and pain. Treatment plan problems 1 and 2. Intervention: Patient assessed and the following interventions initiated safety checks 15 Minute Checks Cognitive Assessment , Head to toe Assessment , Medications. Response: After interactions and interventions patient responded in the following manner, Calm , Compliant ,Cooperative. Continue to assess behaviors and condition will continue to monitor throughout the shift as needed. Patient educated on ADL's, and hand hygiene. 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 Continue to assess patient for changes in above assessment. Monitor for medication needs, pain, and safety concerns. Hourly rounding performed to ensure safe environment.
[2018-02-20 06:05] VITALS: BP 147/93
[2018-02-20] MEDS: ACETAMINOPHEN 325 MG TABLET PO SCH ×3 (07:44→19:08)
[2018-02-20] MEDS: LISINOPRIL 20 MG TABLET PO SCH (07:44)
[2018-02-20] MEDS: CHOLECALCIFEROL (VITAMIN D3) 1,000 UNIT TABLET PO SCH (07:44)
[2018-02-20] MEDS: PANTOPRAZOLE 40 MG TABLET. PO SCH (07:45)
[2018-02-20] MEDS: MEMANTINE 5 MG TABLET. PO SCH ×2 (07:45→19:07)
[2018-02-20] MEDS: CARVEDILOL 3.125 MG TABLET PO SCH ×2 (07:45→18:04)
[2018-02-20] MEDS: ASCORBIC ACID 500 MG TABLET PO SCH (07:45)
[2018-02-20] MEDS: INSULIN LISPRO 300 UNITS/3 ML INSULN.PEN. SQ SCH ×3 (07:45→17:00)
[2018-02-20] MEDS: LACTOBACILLUS RHAMNOSUS GG 1 CAPSULE. PO SCH (07:45)
[2018-02-20] MEDS: ASPIRIN 81 MG TAB.CHEW PO SCH (07:45)
[2018-02-20] MEDS: CYANOCOBALAMIN (VITAMIN B-12) 1,000 MCG TABLET. PO SCH (07:45)
[2018-02-20] MEDS: busPIRone 5 MG TABLET. PO SCH ×2 (07:48→12:59)
--- NOTE | 2018-02-20 10:02 | NUR ---
Behavior Intervention Response and Plan: BIRP Note: Behavior: Assumed Care of patient, patient located in Dining Room at shift change. Patient exhibited the following behavior Disorganized, Interactive, Compliant. Brief assessment on rounds of vital signs, medication needs, lab studies, and pain. Treatment plan problems . Intervention: Patient assessed and the following interventions initiated safety checks 15 Minute Checks Cognitive Assessment , Head to toe Assessment , Medications. Response: After interactions and interventions patient responded in the following manner, Disorganized , Compliant ,Social. Continue to assess behaviors and condition will continue to monitor throughout the shift as needed. Patient educated on ADL's, and hand hygiene. 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 Continue to assess patient for changes in above assessment. Monitor for medication needs, pain, and safety concerns. Hourly rounding performed to ensure safe environment.
[2018-02-20 16:05] VITALS: BP 110/56
--- NOTE | 2018-02-20 16:25 | NUR ---
pt up adl to meals and day room. anxious in afternoon. zydis given x1.
--- NOTE | 2018-02-20 18:28 | NUR ---
Behavior Intervention Response and Plan: BIRP Note: Behavior: Assumed Care of patient, patient located in Dining Room at shift change. Patient exhibited the following behavior Disorganized, Interactive, Compliant. Brief assessment on rounds of vital signs, medication needs, lab studies, and pain. Treatment plan problems . Intervention: Patient assessed and the following interventions initiated safety checks 15 Minute Checks Cognitive Assessment , Head to toe Assessment , Medications. Response: After interactions and interventions patient responded in the following manner, Disorganized , Compliant ,Social. Continue to assess behaviors and condition will continue to monitor throughout the shift as needed. Patient educated on ADL's, and hand hygiene. 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 Continue to assess patient for changes in above assessment. Monitor for medication needs, pain, and safety concerns. Hourly rounding performed to ensure safe environment.
[2018-02-20] MEDS: ATORVASTATIN CALCIUM 10 MG TABLET. PO SCH (19:08)
--- NOTE | 2018-02-20 22:54 | PDOC ---
Exam Note: Donaldo Note: Please also refer to the separate dictated note~for this date of service dictated separately.~Patient seen individually. Discussed the patient with Nursing staff reviewed the chart.~Reviewed interim history and current functioning. Reviewed vital signs,~Labs/ Radiology~and current medications noted below. Continue current treatment with the changes noted in the dictated addendum note Assessment: Vital Signs: Vital Signs Date Time Temp Pulse Resp B/P (MAP) Pulse Ox O2 Delivery O2 Flow Rate FiO2 02/20/18 18:04 74 110/56 02/20/18 16:05 97.3 16 96 02/17/18 22:49 Room Air I&O Intake and Output 02/20/18 07:00 Intake Total 1020 ml Balance 1020 ml Intake Oral 1020 ml Labs: Laboratory Tests Test 02/20/18 07:20 02/20/18 11:59 02/20/18 17:29 02/20/18 19:15 Glucose (Fingerstick) 110 mg/dL (70-99) H 93 mg/dL (70-99) 103 mg/dL (70-99) H 123 mg/dL (70-99) H Current Medications: Meds: Current Medications Acetaminophen (Tylenol) 650 mg PRN Q6HRS PRN PO PAIN / TEMP; Start 02/17/18 at 21:45 Multi-Ingredient Ointment (Analgesic [place]) 1 ashely PRN QID PRN TP MUSCLE PAIN; Start 02/17/18 at 21:45 Al Hydroxide/Mg Hydroxide (Mylanta Plus Xs) 15 ml PRN AFTMEALHC PRN PO DYSPEPSIA; Start 02/17/18 at 21:45 Magnesium Hydroxide (Milk Of Magnesia) 2,400 mg PRN QHS PRN PO CONSTIPATION; Start 02/17/18 at 21:45 Acetaminophen (Tylenol) 650 mg TID PO Last administered on 02/20/18at 19:08; Start 02/18/18 at 09:00 Ascorbic Acid (Vitamin C) 1,000 mg DAILY PO Last administered on 02/20/18at 07: 45; Start 02/18/18 at 09:00 Vitamin D (Vitamin D3) 1,000 unit DAILY PO Last administered on 02/20/18at 07:44 ; Start 02/18/18 at 09:00 Cyanocobalamin (Vitamin B-12) 1,000 mcg DAILY PO Last administered on 07:45; Start 02/18/18 at 09:00 Aspirin (Children'S Aspirin) 81 mg DAILYWBKFT PO Last administered on 07:45; Start 02/18/18 at 08:00 Atorvastatin Calcium (Lipitor) 10 mg QHS PO Last administered on 02/20/18 19: 08; Start 02/18/18 at 21:00 Carvedilol (Coreg) 3.125 mg BIDWMEALS PO Last administered on 02/20/18 18:04; Start 02/18/18 at 08:00 Lactobacillus Rhamnosus (Culturelle) 1 cap DAILY PO Last administered on 07:45; Start 02/18/18 at 09:00 Lisinopril (Prinivil) 40 mg DAILY PO Last administered on 02/20/18 07:44; Start 02/18/18 at 09:00 Pantoprazole Sodium (Protonix) 40 mg DAILYAC PO Last administered on 02/20/18 07:45; Start 02/18/18 at 07:30 Fluvoxamine Maleate (Luvox) 100 mg BID PO Last administered on 02/20/18 19:08 ; Start 02/18/18 at 09:00 Memantine (Namenda) 5 mg BID PO Last administered on 02/20/18 19:07; Start at 09:00 Trazodone HCl (Desyrel) 50 mg PRN QHS PRN PO INSOMNIA; Start 02/17/18 at 23:00 Insulin Human Lispro (HumaLOG) 0-5 UNITS TIDWMEALS SQ ; Start 02/19/18 at 08:00 Dextrose 12.5 gm PRN Q15MIN PRN IV SEE COMMENTS; Start 02/18/18 at 18:15 Olanzapine (ZyPREXA ZYDIS) 2.5 mg PRN Q2HR PRN PO PSYCHOSIS Last administered on 02/20/18 08:00; Start 02/18/18 at 18:30 Buspirone HCl (Buspar) 5 mg BID@0900,1300 PO Last administered on 02/20/18at 12: 59; Start 02/20/18 at 09:00 Active Scripts Active Reported Fluvoxamine Maleate 100 Mg Tablet 100 Mg PO BID Carvedilol 3.125 Mg Tablet 3.125 Mg PO BIDWMEALS Vitamin D3 (Cholecalciferol (Vitamin D3)) 1,000 Unit Tablet 1,000 Unit PO DAILY Vitamin C (Ascorbic Acid) 500 Mg Tablet 1,000 Mg PO DAILY Probiotic (Lactobacillus Acidophilus) 1 Each Capsule 1 Cap PO DAILY Tylenol (Acetaminophen) 325 Mg Tablet 650 Mg PO TID Namenda (Memantine Hcl) 10 Mg Tablet 5 Mg PO BID Vitamin B-12 (Cyanocobalamin (Vitamin B-12)) 1,000 Mcg Tablet 1,000 Mcg PO DAILY Trazodone Hcl 50 Mg Tablet 50 Mg PO PRN QHS PRN Omeprazole 20 Mg Tablet.dr 20 Mg PO DAILY Lisinopril 40 Mg Tablet 40 Mg PO DAILY Atorvastatin Calcium 10 Mg Tablet 10 Mg PO QHS Aspirin 81 Mg Tab.chew 81 Mg PO DAILY I have reviewed the current psychotropics carefully including drug interactions. Risk benefit ratio favors no change other than as noted in my dictated progress note. Diagnosis: Problems: (1) Anxiety disorder (2) Confusion (3) Behavior problem (4) Delusion CINTHIA SOMERS MD Feb 20, 2018 22:54
--- NOTE | 2018-02-20 23:15 | NUR ---
Behavior Intervention Response and Plan: BIRP Note: Behavior: Assumed Care of patient, patient located in Day Room at shift change. Patient exhibited the following behavior Interactive, Social, Restless. Brief assessment on rounds of vital signs, medication needs, lab studies, and pain. Treatment plan problems 1 and 2. Intervention: Patient assessed and the following interventions initiated safety checks 15 Minute Checks Cognitive Assessment , Head to toe Assessment , Medications. Response: After interactions and interventions patient responded in the following manner, Calm , Compliant ,Cooperative. Continue to assess behaviors and condition will continue to monitor throughout the shift as needed. Patient educated on ADL's, and hand hygiene. Plan: Continue to monitor Master Treatment Plan for patient's progress toward short term goals of Decreased Anxiety, Improved Mood, jail goals to return to previous living setting vs placement. Continue to assess patient for changes in above assessment. Monitor for medication needs, pain, and safety concerns. Hourly rounding performed to ensure safe environment.
[2018-02-20] MEDS: traZODone 50 MG TABLET. PO PRN (23:33)
--- NOTE | 2018-02-20 23:53 | NUR ---
Pt restless, anxious, and disorganized. Pt and room mate up in room, talking about rearranging the "apartment" and wanting to know when they will be leaving. Pt rearranging blankets on the bed, continuously fidgeting with random items in the room. Attempted to re-orient pt to current situation which was successful only briefly. PRN Trazodone and PRN Zydis administered as ordered at this time.
[2018-02-21 06:43] VITALS: BP 156/84
[2018-02-21] MEDS: MEMANTINE 5 MG TABLET. PO SCH ×2 (07:35→20:22)
[2018-02-21] MEDS: ASPIRIN 81 MG TAB.CHEW PO SCH (07:35)
[2018-02-21] MEDS: busPIRone 5 MG TABLET. PO SCH ×2 (07:36→13:40)
[2018-02-21] MEDS: LACTOBACILLUS RHAMNOSUS GG 1 CAPSULE. PO SCH (07:36)
[2018-02-21] MEDS: ASCORBIC ACID 500 MG TABLET PO SCH (07:36)
[2018-02-21] MEDS: LISINOPRIL 20 MG TABLET PO SCH (07:36)
[2018-02-21] MEDS: CYANOCOBALAMIN (VITAMIN B-12) 1,000 MCG TABLET. PO SCH (07:36)
[2018-02-21] MEDS: PANTOPRAZOLE 40 MG TABLET. PO SCH (07:37)
[2018-02-21] MEDS: CHOLECALCIFEROL (VITAMIN D3) 1,000 UNIT TABLET PO SCH (07:37)
[2018-02-21] MEDS: ACETAMINOPHEN 325 MG TABLET PO SCH ×3 (07:37→20:21)
[2018-02-21] MEDS: CARVEDILOL 3.125 MG TABLET PO SCH ×2 (07:37→17:59)
[2018-02-21] MEDS: INSULIN LISPRO 300 UNITS/3 ML INSULN.PEN. SQ SCH ×3 (07:37→17:00)
--- NOTE | 2018-02-21 10:51 | NUR ---
Behavior Intervention Response and Plan: BIRP Note: Behavior: Assumed Care of patient, patient located in Dining Room at shift change. Patient exhibited the following behavior Disorganized, Interactive, Compliant. Brief assessment on rounds of vital signs, medication needs, lab studies, and pain. Treatment plan problems . Intervention: Patient assessed and the following interventions initiated safety checks 15 Minute Checks Cognitive Assessment , Head to toe Assessment , Medications. Response: After interactions and interventions patient responded in the following manner, Disorganized , Compliant ,Social. Continue to assess behaviors and condition will continue to monitor throughout the shift as needed. Patient educated on ADL's, and hand hygiene. 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 Continue to assess patient for changes in above assessment. Monitor for medication needs, pain, and safety concerns. Hourly rounding performed to ensure safe environment.
--- NOTE | 2018-02-21 15:56 | NUR ---
pt up adl to meals. complaint with meds. anxious at times. easily overstimulated.
[2018-02-21 16:22] VITALS: BP 118/73
[2018-02-21] MEDS: ATORVASTATIN CALCIUM 10 MG TABLET. PO SCH (20:22)
[2018-02-21] MEDS: traZODone 50 MG TABLET. PO PRN (20:23)
--- NOTE | 2018-02-21 21:03 | PDOC ---
Exam Note: Donaldo Note: Please also refer to the separate dictated note~for this date of service dictated separately.~Patient seen individually. Discussed the patient with Nursing staff reviewed the chart.~Reviewed interim history and current functioning. Reviewed vital signs,~Labs/ Radiology~and current medications noted below. Continue current treatment with the changes noted in the dictated addendum note Assessment: Vital Signs: Vital Signs Date Time Temp Pulse Resp B/P (MAP) Pulse Ox O2 Delivery O2 Flow Rate FiO2 02/21/18 17:59 76 118/73 02/21/18 16:22 97.7 20 97 02/17/18 22:49 Room Air I&O Intake and Output 02/21/18 07:00 Intake Total 1320 ml Balance 1320 ml Intake Oral 1320 ml # Voids 1 Labs: Laboratory Tests Test 02/21/18 07:12 02/21/18 11:29 02/21/18 16:27 02/21/18 19:20 Glucose (Fingerstick) 121 mg/dL (70-99) H 107 mg/dL (70-99) H 96 mg/dL (70-99) 174 mg/dL (70-99) H Current Medications: Meds: Current Medications Acetaminophen (Tylenol) 650 mg PRN Q6HRS PRN PO PAIN / TEMP; Start 02/17/18 at 21:45 Multi-Ingredient Ointment (Analgesic [place]) 1 ashely PRN QID PRN TP MUSCLE PAIN; Start 02/17/18 at 21:45 Al Hydroxide/Mg Hydroxide (Mylanta Plus Xs) 15 ml PRN AFTMEALHC PRN PO DYSPEPSIA; Start 02/17/18 at 21:45 Magnesium Hydroxide (Milk Of Magnesia) 2,400 mg PRN QHS PRN PO CONSTIPATION; Start 02/17/18 at 21:45 Acetaminophen (Tylenol) 650 mg TID PO Last administered on 02/21/18at 20:21; Start 02/18/18 at 09:00 Ascorbic Acid (Vitamin C) 1,000 mg DAILY PO Last administered on 02/21/18at 07: 36; Start 02/18/18 at 09:00 Vitamin D (Vitamin D3) 1,000 unit DAILY PO Last administered on 02/21/18at 07:37 ; Start 02/18/18 at 09:00 Cyanocobalamin (Vitamin B-12) 1,000 mcg DAILY PO Last administered on 07:36; Start 02/18/18 at 09:00 Aspirin (Children'S Aspirin) 81 mg DAILYWBKFT PO Last administered on 07:35; Start 02/18/18 at 08:00 Atorvastatin Calcium (Lipitor) 10 mg QHS PO Last administered on 02/21/18 20: 22; Start 02/18/18 at 21:00 Carvedilol (Coreg) 3.125 mg BIDWMEALS PO Last administered on 02/21/18 17:59; Start 02/18/18 at 08:00 Lactobacillus Rhamnosus (Culturelle) 1 cap DAILY PO Last administered on 07:36; Start 02/18/18 at 09:00 Lisinopril (Prinivil) 40 mg DAILY PO Last administered on 02/21/18 07:36; Start 02/18/18 at 09:00 Pantoprazole Sodium (Protonix) 40 mg DAILYAC PO Last administered on 02/21/18 07:37; Start 02/18/18 at 07:30 Fluvoxamine Maleate (Luvox) 100 mg BID PO Last administered on 02/21/18 20:22 ; Start 02/18/18 at 09:00 Memantine (Namenda) 5 mg BID PO Last administered on 02/21/18 20:22; Start at 09:00 Trazodone HCl (Desyrel) 50 mg PRN QHS PRN PO INSOMNIA Last administered on 02/21 20:23; Start 02/17/18 at 23:00 Insulin Human Lispro (HumaLOG) 0-5 UNITS TIDWMEALS SQ ; Start 02/19/18 at 08:00 Dextrose 12.5 gm PRN Q15MIN PRN IV SEE COMMENTS; Start 02/18/18 at 18:15 Olanzapine (ZyPREXA ZYDIS) 2.5 mg PRN Q2HR PRN PO PSYCHOSIS Last administered on 02/20/18 23:33; Start 02/18/18 at 18:30 Buspirone HCl (Buspar) 5 mg BID@0900,1300 PO Last administered on 02/21/18at 13: 40; Start 02/20/18 at 09:00 Active Scripts Active Reported Fluvoxamine Maleate 100 Mg Tablet 100 Mg PO BID Carvedilol 3.125 Mg Tablet 3.125 Mg PO BIDWMEALS Vitamin D3 (Cholecalciferol (Vitamin D3)) 1,000 Unit Tablet 1,000 Unit PO DAILY Vitamin C (Ascorbic Acid) 500 Mg Tablet 1,000 Mg PO DAILY Probiotic (Lactobacillus Acidophilus) 1 Each Capsule 1 Cap PO DAILY Tylenol (Acetaminophen) 325 Mg Tablet 650 Mg PO TID Namenda (Memantine Hcl) 10 Mg Tablet 5 Mg PO BID Vitamin B-12 (Cyanocobalamin (Vitamin B-12)) 1,000 Mcg Tablet 1,000 Mcg PO DAILY Trazodone Hcl 50 Mg Tablet 50 Mg PO PRN QHS PRN Omeprazole 20 Mg Tablet.dr 20 Mg PO DAILY Lisinopril 40 Mg Tablet 40 Mg PO DAILY Atorvastatin Calcium 10 Mg Tablet 10 Mg PO QHS Aspirin 81 Mg Tab.chew 81 Mg PO DAILY I have reviewed the current psychotropics carefully including drug interactions. Risk benefit ratio favors no change other than as noted in my dictated progress note. Diagnosis: Problems: (1) Anxiety disorder (2) Confusion (3) Behavior problem (4) Delusion CINTHIA SOMERS MD Feb 21, 2018 21:03
--- NOTE | 2018-02-21 22:06 | NUR ---
Behavior Intervention Response and Plan: BIRP Note: Behavior: Assumed Care of patient, patient located in Day Room at shift change. Patient exhibited the following behavior Calm, Interactive, Social. Brief assessment on rounds of vital signs, medication needs, lab studies, and pain. Treatment plan problems . Intervention: Patient assessed and the following interventions initiated safety checks 15 Minute Checks Head to toe Assessment , Cognitive Assessment , Medications. Response: After interactions and interventions patient responded in the following manner, Able to Focus on Task , Appropriate ,Cooperative. Continue to assess behaviors and condition will continue to monitor throughout the shift as needed. Patient educated on ADL's, and hand hygiene. Plan: Continue to monitor Master Treatment Plan for patient's progress toward short term goals of Improved Mood, Decreased Agitation, usp goals to return to previous living setting vs placement. Continue to assess patient for changes in above assessment. Monitor for medication needs, pain, and safety concerns. Hourly rounding performed to ensure safe environment.
--- NOTE | 2018-02-21 22:34 | PN ---
DATE: 02/19/2018 This is a late entry, 02/19/2018, covers the elements not covered in my initial note. SUBJECTIVE: I met with the patient in the evening. The patient slept 6 hours the previous evening, remains confused, anxious, labile at times, but redirectable, somewhat giddy and loud in the morning. REVIEW OF SYSTEMS: No CV, , pulmonary, eye, ENT system symptoms on review. MENTAL STATUS EXAM: Oriented to herself. Insight, judgment, recent and remote memory, attention, concentration, fund of knowledge poor, consistent with her diagnosis as mentioned in my initial note. PLAN: Start BuSpar 5 mg 9 before noon, 5 after noon, maintain rest unchanged. MAN Morgan SOMERS MD DR: ADRIENNE/melisa JOB#: [id number] / [id number]
--- NOTE | 2018-02-21 23:12 | PN ---
DATE: 02/20/2018 PSYCHIATRIC PROGRESS NOTE This late entry 02/20/2018 covers elements not covered in my initial note. I met with the patient in the evening. Overall, the patient remains confused, anxious, restless, but redirects. UA has reflex to culture. REVIEW OF SYSTEMS: No CV, , pulmonary, eye, ENT system symptoms on review. MENTAL STATUS EXAM: Oriented to herself. Insight, judgment, recent and remote memory, attention, concentration, fund of knowledge poor, consistent with her diagnosis mentioned in my initial note. PLAN: No change from a psychiatric standpoint. BuSpar started 5 mg twice a day. Rest unchanged. MAN Morgan SOMERS MD DR: ADRIENNE/meilsa JOB#: [id number] / [id number]
--- NOTE | 2018-02-21 23:44 | PN ---
DATE: 02/21/2018 PSYCHIATRIC PROGRESS NOTE This note covers elements, not covered in my initial note 02/21/2018. The patient slept 4-1/4 hours previous evening, anxious at times, restless, wandering. REVIEW OF SYSTEMS: No CV, , pulmonary, eye, ENT system symptoms on review. Reliability poor. MENTAL STATUS EXAM: Oriented to herself. Insight, judgment, recent and remote memory, attention, concentration, fund of knowledge poor, consistent with her diagnosis. IMPRESSION: Major neurocognitive disorder, Alzheimer, vascular with delusion, depression, behavioral disturbance. PLAN: Start BuSpar 5 mg b.i.d. Continue rest, unchanged from initial note. MAN Morgan SOMERS MD DR: ADRIENNE/melisa JOB#: [id number] / [id number]
[2018-02-22 06:13] VITALS: BP 128/56
[2018-02-22] MEDS: INSULIN LISPRO 300 UNITS/3 ML INSULN.PEN. SQ SCH ×3 (08:00→16:59)
[2018-02-22] MEDS: MEMANTINE 5 MG TABLET. PO SCH ×2 (09:19→20:15)
[2018-02-22] MEDS: CHOLECALCIFEROL (VITAMIN D3) 1,000 UNIT TABLET PO SCH (09:19)
[2018-02-22] MEDS: ASPIRIN 81 MG TAB.CHEW PO SCH (09:19)
[2018-02-22] MEDS: PANTOPRAZOLE 40 MG TABLET. PO SCH (09:19)
[2018-02-22] MEDS: ASCORBIC ACID 500 MG TABLET PO SCH (09:19)
[2018-02-22] MEDS: LACTOBACILLUS RHAMNOSUS GG 1 CAPSULE. PO SCH (09:20)
[2018-02-22] MEDS: CYANOCOBALAMIN (VITAMIN B-12) 1,000 MCG TABLET. PO SCH (09:20)
[2018-02-22] MEDS: busPIRone 5 MG TABLET. PO SCH ×2 (09:20→12:52)
[2018-02-22] MEDS: ACETAMINOPHEN 325 MG TABLET PO SCH ×3 (09:20→20:15)
[2018-02-22] MEDS: CARVEDILOL 3.125 MG TABLET PO SCH ×2 (09:24→17:00)
[2018-02-22] MEDS: LISINOPRIL 20 MG TABLET PO SCH (09:25)
--- NOTE | 2018-02-22 10:00 | NUR ---
ACTIVITY THERAPY ASSESSMENT Completed based on observation and interview. Pt. was trying to get help for her roommate who needed to get out of bed and use the restroom. Pt. was calm as REVERBERATORY SKIMMER assisted her roommate and agreeable to speak with REVERBERATORY SKIMMER in her office afterwards. Pt. talked about her apartment and her son who encouraged her to trust him and do everything she needs to do while she is here. Pt. struggled to clearly explain why she is here. She spoke about people being irritated and firmly stated she must LOCK HER DOOR as she pounded her fist into her palm with each word. She talked about visiting [employer] and watching [facility] each night with her and her dog, Ana Paula. Pt. shared she likes to walk but said that that started to irritate people, she couldn't explain why, she said it was complicated. Pt. likes being around people and wants to help. Most everything positive she said was followed by a negative, often stating it was irritating. She brought up the fact that she must lock her door again and explained someone was in there, her clothes were wet and things were missing. She thought the head of [employer] might have been involved. Pt. talked about her diet and the nurse, John, that encouraged her to come here because she was having trouble using the restroom. Pt. explained her diet (1/2 banana in the morning with certain cereal and some juice then the other half of the banana at lunch. Initial goal aimed to increase engagement and continue socialization: Pt. will participate in at least two groups a day. Addendum: 02/25/18 at 1121 by EVA HOWELL ACT Goal changed 02/25/2018: Pt. will participate in the majority of groups they are invited to.
--- NOTE | 2018-02-22 11:28 | NUR ---
Psychosocial completed w/pt's son, Jabier. Pt was born and raised in [place], [place] as an only child. Pt had a favorite unlce that she was very close to as a child that was killed in the War. Pt's son believes this may have been a trigger for her anxiety. No other known family history of MHI or Dementia. No history of alcohol or substance abuse in family or for pt. Pt completed HS and her 1st named Cuca, had 3 sons named Jabier, Sachin and David. They and she her 2nd named Julito from [id number] when he . Pt worked as a [employer] for the [employer] the [employer]. Pt has had several Psych admits beginning in 1999. 1999, 2003 to [facility] 2013 - [facility] 2016 - [facility] Per pt's son, pt is a "worrier" and tends to feed off of other people's crisis. Their crisis becomes her crisis. Her psych admits are never about her own actual crisis, rather another person's crisis that she has attempted to assist w/and becomes worked up about worrying and anxiety driven. Her likely cause for admit at this time is due to her difficulty in accepting the aging process and her friends who are leaving the [place] area and transitioning to a higher level of care and she is unable to "save them" or "help them" any longer. Pt was diagnosed w/Dementia in 2015, but began to exhibit symptoms in 2013. Pt has [place] since [place]/27/14 and according to konstantin's son, her room is "perfect" for pt. Jabier absolutely does not want pt to transition to ID and is adamant that pt return to her apartment at this al. GOALS: Jabier's goal is for pt to return to her [place] apartment as this is her "usual 2 year psych admit and she will be fine". 1. Community Support 2. Family Support
[2018-02-22 16:32] VITALS: BP 126/82
[2018-02-22] MEDS: ATORVASTATIN CALCIUM 10 MG TABLET. PO SCH (20:15)
--- NOTE | 2018-02-22 20:59 | PDOC ---
Exam Note: Donaldo Note: Please also refer to the separate dictated note~for this date of service dictated separately.~Patient seen individually. Discussed the patient with Nursing staff reviewed the chart.~Reviewed interim history and current functioning. Reviewed vital signs,~Labs/ Radiology~and current medications noted below. Continue current treatment with the changes noted in the dictated addendum note Assessment: Vital Signs: Vital Signs Date Time Temp Pulse Resp B/P (MAP) Pulse Ox O2 Delivery O2 Flow Rate FiO2 02/22/18 17:00 70 126/82 02/22/18 16:32 98.6 16 97 Room Air I&O Intake and Output 02/22/18 07:00 Intake Total 1080 ml Balance 1080 ml Intake Oral 1080 ml Labs: Laboratory Tests Test 02/22/18 07:16 02/22/18 11:27 02/22/18 16:49 Glucose (Fingerstick) 124 mg/dL (70-99) H 88 mg/dL (70-99) 122 mg/dL (70-99) H Current Medications: Meds: Current Medications Acetaminophen (Tylenol) 650 mg PRN Q6HRS PRN PO PAIN / TEMP; Start 02/17/18 at 21:45 Multi-Ingredient Ointment (Analgesic [place]) 1 ashely PRN QID PRN TP MUSCLE PAIN; Start 02/17/18 at 21:45 Al Hydroxide/Mg Hydroxide (Mylanta Plus Xs) 15 ml PRN AFTMEALHC PRN PO DYSPEPSIA; Start 02/17/18 at 21:45 Magnesium Hydroxide (Milk Of Magnesia) 2,400 mg PRN QHS PRN PO CONSTIPATION; Start 02/17/18 at 21:45 Acetaminophen (Tylenol) 650 mg TID PO Last administered on 02/22/18at 20:15; Start 02/18/18 at 09:00 Ascorbic Acid (Vitamin C) 1,000 mg DAILY PO Last administered on 02/22/18at 09: 19; Start 02/18/18 at 09:00 Vitamin D (Vitamin D3) 1,000 unit DAILY PO Last administered on 02/22/18at 09:19 ; Start 02/18/18 at 09:00 Cyanocobalamin (Vitamin B-12) 1,000 mcg DAILY PO Last administered on at 09:20; Start 02/18/18 at 09:00 Aspirin (Children'S Aspirin) 81 mg DAILYWBKFT PO Last administered on 09:19; Start 02/18/18 at 08:00 Atorvastatin Calcium (Lipitor) 10 mg QHS PO Last administered on 02/22/18 20: 15; Start 02/18/18 at 21:00 Carvedilol (Coreg) 3.125 mg BIDWMEALS PO Last administered on 02/22/18 17:00; Start 02/18/18 at 08:00 Lactobacillus Rhamnosus (Culturelle) 1 cap DAILY PO Last administered on 09:20; Start 02/18/18 at 09:00 Lisinopril (Prinivil) 40 mg DAILY PO Last administered on 02/22/18 09:25; Start 02/18/18 at 09:00 Pantoprazole Sodium (Protonix) 40 mg DAILYAC PO Last administered on 02/22/18 09:19; Start 02/18/18 at 07:30 Fluvoxamine Maleate (Luvox) 100 mg BID PO Last administered on 02/22/18 20:15 ; Start 02/18/18 at 09:00 Memantine (Namenda) 5 mg BID PO Last administered on 02/22/18 20:15; Start at 09:00 Trazodone HCl (Desyrel) 50 mg PRN QHS PRN PO INSOMNIA Last administered on 02/21 20:23; Start 02/17/18 at 23:00 Insulin Human Lispro (HumaLOG) 0-5 UNITS TIDWMEALS SQ ; Start 02/19/18 at 08:00 Dextrose 12.5 gm PRN Q15MIN PRN IV SEE COMMENTS; Start 02/18/18 at 18:15 Olanzapine (ZyPREXA ZYDIS) 2.5 mg PRN Q2HR PRN PO PSYCHOSIS Last administered on 02/20/18 23:33; Start 02/18/18 at 18:30 Buspirone HCl (Buspar) 5 mg BID@0900,1300 PO Last administered on 02/22/18 12: 52; Start 02/20/18 at 09:00 Active Scripts Active Reported Fluvoxamine Maleate 100 Mg Tablet 100 Mg PO BID Carvedilol 3.125 Mg Tablet 3.125 Mg PO BIDWMEALS Vitamin D3 (Cholecalciferol (Vitamin D3)) 1,000 Unit Tablet 1,000 Unit PO DAILY Vitamin C (Ascorbic Acid) 500 Mg Tablet 1,000 Mg PO DAILY Probiotic (Lactobacillus Acidophilus) 1 Each Capsule 1 Cap PO DAILY Tylenol (Acetaminophen) 325 Mg Tablet 650 Mg PO TID Namenda (Memantine Hcl) 10 Mg Tablet 5 Mg PO BID Vitamin B-12 (Cyanocobalamin (Vitamin B-12)) 1,000 Mcg Tablet 1,000 Mcg PO DAILY Trazodone Hcl 50 Mg Tablet 50 Mg PO PRN QHS PRN Omeprazole 20 Mg Tablet.dr 20 Mg PO DAILY Lisinopril 40 Mg Tablet 40 Mg PO DAILY Atorvastatin Calcium 10 Mg Tablet 10 Mg PO QHS Aspirin 81 Mg Tab.chew 81 Mg PO DAILY I have reviewed the current psychotropics carefully including drug interactions. Risk benefit ratio favors no change other than as noted in my dictated progress note. Diagnosis: Problems: (1) Anxiety disorder (2) Confusion (3) Behavior problem (4) Delusion CINTHIA SOMERS MD Feb 22, 2018 20:59
--- NOTE | 2018-02-23 00:40 | NUR ---
Behavior Intervention Response and Plan: BIRP Note: Behavior: Assumed Care of patient, patient located in Day Room at shift change. Patient exhibited the following behavior Calm, Disorganized, Interactive. Brief assessment on rounds of vital signs, medication needs, lab studies, and pain. Treatment plan problems 1 and 2. Intervention: Patient assessed and the following interventions initiated safety checks 15 Minute Checks Cognitive Assessment , Head to toe Assessment , Medications. Response: After interactions and interventions patient responded in the following manner, Calm , Compliant ,Cooperative. Continue to assess behaviors and condition will continue to monitor throughout the shift as needed. Patient educated on ADL's, and hand hygiene. Plan: Continue to monitor Master Treatment Plan for patient's progress toward short term goals of Decreased Anxiety, Improved Mood, terminal worker goals to return to previous living setting vs placement. Continue to assess patient for changes in above assessment. Monitor for medication needs, pain, and safety concerns. Hourly rounding performed to ensure safe environment.
[2018-02-23 07:25] VITALS: BP 152/79
[2018-02-23] MEDS: INSULIN LISPRO 300 UNITS/3 ML INSULN.PEN. SQ SCH ×3 (07:42→17:00)
[2018-02-23] MEDS: PANTOPRAZOLE 40 MG TABLET. PO SCH (08:02)
[2018-02-23] MEDS: LACTOBACILLUS RHAMNOSUS GG 1 CAPSULE. PO SCH (08:03)
[2018-02-23] MEDS: LISINOPRIL 20 MG TABLET PO SCH (08:03)
[2018-02-23] MEDS: CHOLECALCIFEROL (VITAMIN D3) 1,000 UNIT TABLET PO SCH (08:03)
[2018-02-23] MEDS: ACETAMINOPHEN 325 MG TABLET PO SCH ×3 (08:03→20:10)
[2018-02-23] MEDS: CYANOCOBALAMIN (VITAMIN B-12) 1,000 MCG TABLET. PO SCH (08:03)
[2018-02-23] MEDS: ASCORBIC ACID 500 MG TABLET PO SCH (08:03)
[2018-02-23] MEDS: ASPIRIN 81 MG TAB.CHEW PO SCH (08:03)
[2018-02-23] MEDS: busPIRone 5 MG TABLET. PO SCH ×2 (08:04→14:33)
[2018-02-23] MEDS: CARVEDILOL 3.125 MG TABLET PO SCH ×2 (08:04→18:06)
[2018-02-23] MEDS: MEMANTINE 5 MG TABLET. PO SCH ×2 (08:04→20:10)
--- NOTE | 2018-02-23 13:30 | NUR ---
Activity Therapy Observation: Pt. was observed having a number of emotional reactions in response to another patient being in the locked hallway. Pt. asked multiple times during the morning group 'can she be let out?'. In the afternoon, therapist observed the Pt. asking a nurse 'I am looking for someone to help her. Can you help her?' During the afternoon group, Pt. sat away from the door where the other patient was making loud noise in the secured hallway. Pt. seemed emotionally affected by the situation and was difficult to engage with during the activity.
--- NOTE | 2018-02-23 15:41 | NUR ---
Behavior Intervention Response and Plan: BIRP Note: Behavior: Assumed Care of patient. Patient located in dining room at shift change. Patient exhibited the following behavior: calm, social, and cooperative. Brief assessment on rounds of vital signs, medication needs, lab studies, and pain. Treatment plan problems. Intervention: Patient assessed and the following interventions initiated: safety checks, 15-minute checks, cognitive assessment, head-to-toe assessment, medications. Response: After interactions and interventions patient responded in the following manner: restless, social, and interactive. Continue to assess behaviors and condition will continue to monitor throughout the shift as needed. Patient educated on ADL's and hand hygiene. Plan: Continue to monitor master treatment plan for patient's progress toward short-term goals of decreased anxiety and improved mood. Long-term goals to return to previous living setting vs placement. Continue to assess patient for changes in above assessment. Monitor for medication needs, pain, and safety concerns. Hourly rounding performed to ensure safe environment.
[2018-02-23 16:45] VITALS: BP 125/73
--- NOTE | 2018-02-23 20:03 | PN ---
DATE: 02/22/2018 PSYCHIATRIC PROGRESS NOTE This is a late entry for 02/22/2018 covers elements not covered in my initial note. SUBJECTIVE: I met with the patient in the evening. The patient slept 7 hours previous evening. UA is negative. She is compliant, confused. REVIEW OF SYSTEMS: No CV, , pulmonary, eye, ENT system symptoms on review. Reliability poor. MENTAL STATUS EXAM: Oriented to herself. Insight, judgment, recent and remote memory, attention, concentration, fund of knowledge poor, consistent with her diagnosis. She is very pleasant, verbal, almost hyperverbal introducing me to others around her, able to recognize me as a doctor. No suicidal or homicidal ideation. LABORATORY DATA: Reviewed. IMPRESSION: Major neurocognitive disorder, Alzheimer, vascular with delusion, depression, behavioral disturbance. Rest unchanged from initial note. PLAN: Continue psychotropics from my initial note. MAN Morgan SOMERS MD DR: ADRIENNE/melisa JOB#: [id number] / [id number]
[2018-02-23] MEDS: ATORVASTATIN CALCIUM 10 MG TABLET. PO SCH (20:10)
[2018-02-23] MEDS: busPIRone 10 MG TABLET. PO SCH (20:11)
[2018-02-23] MEDS: traZODone 50 MG TABLET. PO PRN (20:44)
--- NOTE | 2018-02-23 20:54 | NUR ---
Pt being intrusive with another peer whom is agitated and can be combative with others. Staff attempted to re-direct pt away from peer, however, pt refuses. Several attempts made to get pt away from the hallway and into the day room. Pt just becomes increasingly more anxious and paranoid. At this time, PRN Zydis as well as PRN Trazodone administered as ordered.
--- NOTE | 2018-02-23 22:18 | NUR ---
Behavior Intervention Response and Plan: BIRP Note: Behavior: Assumed Care of patient, patient located in Day Room at shift change. Patient exhibited the following behavior Interactive, Disorganized, Anxious. Brief assessment on rounds of vital signs, medication needs, lab studies, and pain. Treatment plan problems 1 and 2. Intervention: Patient assessed and the following interventions initiated safety checks 15 Minute Checks Cognitive Assessment , Head to toe Assessment , Medications. Response: After interactions and interventions patient responded in the following manner, Calm , Compliant ,Cooperative. Continue to assess behaviors and condition will continue to monitor throughout the shift as needed. Patient educated on ADL's, and hand hygiene. Plan: Continue to monitor Master Treatment Plan for patient's progress toward short term goals of Decreased Anxiety, Improved Mood, longterm goals to return to previous living setting vs placement. Continue to assess patient for changes in above assessment. Monitor for medication needs, pain, and safety concerns. Hourly rounding performed to ensure safe environment.
[2018-02-24 05:53] VITALS: BP 131/70
[2018-02-24 06:42] LABS: ALBUMIN 3.8 g/dL (3.4-5.0); ALBUMIN/GLOBULIN RATIO 1.4 (1.0-1.7); CREATININE 0.9 mg/dL (0.6-1.0); GFR 59.5; POTASSIUM 4.6 mmol/L (3.5-5.1); TOTAL BILIRUBIN 0.7 mg/dL (0.2-1.0); TOTAL PROTEIN 6.6 g/dL (6.4-8.2)
[2018-02-24 06:53] LABS: BASO # 0.1 x10^3/uL (0.0-0.2); BASO % 1 % (0-3); EOS # 0.6 x10^3/uL (0.0-0.7); EOS % 10 % (0-3); HEMATOCRIT 37.9 % (36.0-47.0); HEMOGLOBIN 12.9 g/dL (12.0-15.5); LYMPH # 1.7 x10^3/uL (1.0-4.8); LYMPH % 30 % (24-48); MEAN CORPUSCULAR HEMOGLOBIN 34 pg (25-35); MEAN CORPUSCULAR HGB CONC 34 g/dL (31-37); MEAN CORPUSCULAR VOLUME 99 fL (79-100); MONO # 0.6 x10^3/uL (0.0-1.1); MONO % 11 % (0-9); NEUT # 2.7 x10^3uL (1.8-7.7); NEUT % 48 % (31-73); PLATELET COUNT 181 x10^3/uL (140-400); RED BLOOD COUNT 3.83 x10^6/uL (3.50-5.40); RED CELL DISTRIBUTION WIDTH 12.6 % (11.5-14.5); WHITE BLOOD COUNT 5.6 x10^3/uL (4.0-11.0)
[2018-02-24] MEDS: INSULIN LISPRO 300 UNITS/3 ML INSULN.PEN. SQ SCH ×3 (08:00→16:54)
[2018-02-24] MEDS: PANTOPRAZOLE 40 MG TABLET. PO SCH (08:13)
[2018-02-24] MEDS: LACTOBACILLUS RHAMNOSUS GG 1 CAPSULE. PO SCH (08:13)
[2018-02-24] MEDS: CARVEDILOL 3.125 MG TABLET PO SCH ×2 (08:13→16:56)
[2018-02-24] MEDS: ASPIRIN 81 MG TAB.CHEW PO SCH (08:13)
[2018-02-24] MEDS: CYANOCOBALAMIN (VITAMIN B-12) 1,000 MCG TABLET. PO SCH (08:13)
[2018-02-24] MEDS: ASCORBIC ACID 500 MG TABLET PO SCH (08:14)
[2018-02-24] MEDS: CHOLECALCIFEROL (VITAMIN D3) 1,000 UNIT TABLET PO SCH (08:14)
[2018-02-24] MEDS: LISINOPRIL 20 MG TABLET PO SCH (08:14)
[2018-02-24] MEDS: ACETAMINOPHEN 325 MG TABLET PO SCH ×3 (08:14→20:16)
[2018-02-24] MEDS: MEMANTINE 5 MG TABLET. PO SCH ×2 (08:14→20:15)
[2018-02-24] MEDS: busPIRone 10 MG TABLET. PO SCH ×2 (08:14→20:15)
--- NOTE | 2018-02-24 11:26 | NUR ---
Behavior Intervention Response and Plan: BIRP Note: Behavior: Assumed Care of patient, patient located in Dining Room at shift change. Patient exhibited the following behavior Interactive, Disorganized, Anxious. Brief assessment on rounds of vital signs, medication needs, lab studies, and pain. Treatment plan problems 1-2. Intervention: Patient assessed and the following interventions initiated safety checks 15 Minute Checks Cognitive Assessment , Head to toe Assessment , Medications. Response: After interactions and interventions patient responded in the following manner, Disorganized , Anxious ,Compliant. Continue to assess behaviors and condition will continue to monitor throughout the shift as needed. Patient educated on ADL's, and hand hygiene. Plan: Continue to monitor Master Treatment Plan for patient's progress toward short term goals of Decreased Anxiety, Improved Mood, rn staff goals to return to previous living setting vs placement. Continue to assess patient for changes in above assessment. Monitor for medication needs, pain, and safety concerns. Hourly rounding performed to ensure safe environment.
--- NOTE | 2018-02-24 15:00 | NUR ---
WEEKLY THERAPEUTIC RECREATION NOTE Date of Admission: 02/17/2018 Date of AT Assessment: 02/22/2018 Goal aimed:to increase engagement and continue socialization Initial Goal: Pt. will participate in at least two groups a day. Weekly progress towards goal: Exceeded Group participation level: moderate to full Behaviors observed: Pt. is friendly and pleasant with staff, often helpful towards other patients, laughs and smiles often; seems to get tired in the afternoons; contributes to group discussions and engages fully the majority of the time Plan: Goal changed to: Pt. will participate in the majority of groups they are invited to
[2018-02-24 16:02] VITALS: BP 122/58
[2018-02-24] MEDS: ATORVASTATIN CALCIUM 10 MG TABLET. PO SCH (20:16)
--- NOTE | 2018-02-24 20:24 | PDOC ---
Exam Note: Donaldo Note: Please also refer to the separate dictated note~for this date of service dictated separately.~Patient seen individually. Discussed the patient with Nursing staff reviewed the chart.~Reviewed interim history and current functioning. Reviewed vital signs,~Labs/ Radiology~and current medications noted below. Continue current treatment with the changes noted in the dictated addendum note Assessment: Vital Signs: Vital Signs Date Time Temp Pulse Resp B/P (MAP) Pulse Ox O2 Delivery O2 Flow Rate FiO2 02/24/18 16:56 73 122/58 02/24/18 16:02 98.2 18 94 Room Air I&O Intake and Output 02/24/18 07:00 Intake Total 1200 ml Balance 1200 ml Intake Oral 1200 ml Labs: Laboratory Tests Test 02/24/18 06:18 02/24/18 08:17 02/24/18 11:16 02/24/18 16:48 White Blood Count 5.6 x10^3/uL (4.0-11.0) Red Blood Count 3.83 x10^6/uL (3.50-5.40) Hemoglobin 12.9 g/dL (12.0-15.5) Hematocrit 37.9 % (36.0-47.0) Mean Corpuscular Volume 99 fL (79-100) Mean Corpuscular Hemoglobin 34 pg (25-35) Mean Corpuscular Hemoglobin Concent 34 g/dL (31-37) Red Cell Distribution Width 12.6 % (11.5-14.5) Platelet Count 181 x10^3/uL (140-400) Neutrophils (%) (Auto) 48 % (31-73) Lymphocytes (%) (Auto) 30 % (24-48) Monocytes (%) (Auto) 11 % (0-9) H Eosinophils (%) (Auto) 10 % (0-3) H Basophils (%) (Auto) 1 % (0-3) Neutrophils # (Auto) 2.7 x10^3uL (1.8-7.7) Lymphocytes # (Auto) 1.7 x10^3/uL (1.0-4.8) Monocytes # (Auto) 0.6 x10^3/uL (0.0-1.1) Eosinophils # (Auto) 0.6 x10^3/uL (0.0-0.7) Basophils # (Auto) 0.1 x10^3/uL (0.0-0.2) Sodium Level 135 mmol/L (136-145) L Potassium Level 4.6 mmol/L (3.5-5.1) Chloride Level 101 mmol/L (98-107) Carbon Dioxide Level 29 mmol/L (21-32) Anion Gap 5 (6-14) L Blood Urea Nitrogen 14 mg/dL (7-20) Creatinine 0.9 mg/dL (0.6-1.0) Estimated GFR (Cockcroft-Gault) 59.5 BUN/Creatinine Ratio 16 (6-20) Glucose Level 105 mg/dL (70-99) H Calcium Level 9.0 mg/dL (8.5-10.1) Magnesium Level 2.0 mg/dL (1.8-2.4) Total Bilirubin 0.7 mg/dL (0.2-1.0) Aspartate Amino Transferase (AST) 19 U/L (15-37) Alanine Aminotransferase (ALT) 20 U/L (14-59) Alkaline Phosphatase 67 U/L (46-116) Total Protein 6.6 g/dL (6.4-8.2) Albumin 3.8 g/dL (3.4-5.0) Albumin/Globulin Ratio 1.4 (1.0-1.7) Glucose (Fingerstick) 155 mg/dL (70-99) H 88 mg/dL (70-99) 154 mg/dL (70-99) H Test 02/24/18 19:06 Glucose (Fingerstick) 138 mg/dL (70-99) H Current Medications: Meds: Current Medications Acetaminophen (Tylenol) 650 mg PRN Q6HRS PRN PO PAIN / TEMP; Start 02/17/18 at 21:45 Multi-Ingredient Ointment (Analgesic [employer]) 1 ashely PRN QID PRN TP MUSCLE PAIN; Start 02/17/18 at 21:45 Al Hydroxide/Mg Hydroxide (Mylanta Plus Xs) 15 ml PRN AFTMEALHC PRN PO DYSPEPSIA; Start 02/17/18 at 21:45 Magnesium Hydroxide (Milk Of Magnesia) 2,400 mg PRN QHS PRN PO CONSTIPATION; Start 02/17/18 at 21:45 Acetaminophen (Tylenol) 650 mg TID PO Last administered on 02/24/18 20:16; Start 02/18/18 at 09:00 Ascorbic Acid (Vitamin C) 1,000 mg DAILY PO Last administered on 02/24/18 08: 14; Start 02/18/18 at 09:00 Vitamin D (Vitamin D3) 1,000 unit DAILY PO Last administered on 02/24/18 08:14 ; Start 02/18/18 at 09:00 Cyanocobalamin (Vitamin B-12) 1,000 mcg DAILY PO Last administered on 08:13; Start 02/18/18 at 09:00 Aspirin (Children'S Aspirin) 81 mg DAILYWBKFT PO Last administered on 08:13; Start 02/18/18 at 08:00 Atorvastatin Calcium (Lipitor) 10 mg QHS PO Last administered on 02/24/18 20: 16; Start 02/18/18 at 21:00 Carvedilol (Coreg) 3.125 mg BIDWMEALS PO Last administered on 02/24/18 16:56; Start 02/18/18 at 08:00 Lactobacillus Rhamnosus (Culturelle) 1 cap DAILY PO Last administered on 08:13; Start 02/18/18 at 09:00 Lisinopril (Prinivil) 40 mg DAILY PO Last administered on 02/24/18 08:14; Start 02/18/18 at 09:00 Pantoprazole Sodium (Protonix) 40 mg DAILYAC PO Last administered on 02/24/18 08:13; Start 02/18/18 at 07:30 Fluvoxamine Maleate (Luvox) 100 mg BID PO Last administered on 02/24/18 20:15 ; Start 02/18/18 at 09:00 Memantine (Namenda) 5 mg BID PO Last administered on 02/24/18 20:15; Start at 09:00 Trazodone HCl (Desyrel) 50 mg PRN QHS PRN PO INSOMNIA Last administered on 02/23 20:44; Start 02/17/18 at 23:00 Insulin Human Lispro (HumaLOG) 0-5 UNITS TIDWMEALS SQ ; Start 02/19/18 at 08:00 Dextrose 12.5 gm PRN Q15MIN PRN IV SEE COMMENTS; Start 02/18/18 at 18:15 Olanzapine (ZyPREXA ZYDIS) 2.5 mg PRN Q2HR PRN PO PSYCHOSIS Last administered on 02/23/18at 20:44; Start 02/18/18 at 18:30 Buspirone HCl (Buspar) 5 mg BID@0900,1300 PO Last administered on 02/23/18at 14: 33; Start 02/20/18 at 09:00; Stop 02/23/18 at 18:41; Status DC Buspirone HCl (Buspar) 10 mg BID PO Last administered on 02/24/18at 20:15; Start 02/23/18 at 21:00 Active Scripts Active Reported Fluvoxamine Maleate 100 Mg Tablet 100 Mg PO BID Carvedilol 3.125 Mg Tablet 3.125 Mg PO BIDWMEALS Vitamin D3 (Cholecalciferol (Vitamin D3)) 1,000 Unit Tablet 1,000 Unit PO DAILY Vitamin C (Ascorbic Acid) 500 Mg Tablet 1,000 Mg PO DAILY Probiotic (Lactobacillus Acidophilus) 1 Each Capsule 1 Cap PO DAILY Tylenol (Acetaminophen) 325 Mg Tablet 650 Mg PO TID Namenda (Memantine Hcl) 10 Mg Tablet 5 Mg PO BID Vitamin B-12 (Cyanocobalamin (Vitamin B-12)) 1,000 Mcg Tablet 1,000 Mcg PO DAILY Trazodone Hcl 50 Mg Tablet 50 Mg PO PRN QHS PRN Omeprazole 20 Mg Tablet.dr 20 Mg PO DAILY Lisinopril 40 Mg Tablet 40 Mg PO DAILY Atorvastatin Calcium 10 Mg Tablet 10 Mg PO QHS Aspirin 81 Mg Tab.chew 81 Mg PO DAILY I have reviewed the current psychotropics carefully including drug interactions. Risk benefit ratio favors no change other than as noted in my dictated progress note. Diagnosis: Problems: (1) Anxiety disorder (2) Confusion (3) Behavior problem (4) Delusion CINTHIA SOMERS MD Feb 24, 2018 20:24
--- NOTE | 2018-02-24 20:26 | PDOC ---
Exam Note: Donaldo Note: Late entry for date of service 23 February 2018. Please also refer to the separate dictated note~for this date of service dictated separately.~Patient seen individually. Discussed the patient with Nursing staff reviewed the chart.~ Reviewed interim history and current functioning. Reviewed vital signs,~Labs/ Radiology~and current medications noted below. Continue current treatment with the changes noted in the dictated addendum note Assessment: Vital Signs: VS - Last 72 Hours, by Label Date Time Temp Pulse Resp B/P (MAP) Pulse Ox O2 Delivery O2 Flow Rate FiO2 02/24/18 16:56 73 122/58 02/24/18 16:02 98.2 73 18 122/58 (79) 94 Room Air 02/24/18 08:14 68 131/70 02/24/18 08:13 68 131/70 02/24/18 05:53 98.0 68 16 131/70 (90) 97 Room Air 02/23/18 18:06 78 125/73 02/23/18 16:45 98.2 78 20 125/73 (90) 98 02/23/18 08:04 71 152/79 02/23/18 08:03 71 152/79 02/23/18 07:25 97.3 71 16 152/79 (103) 96 02/22/18 17:00 70 126/82 02/22/18 16:32 98.6 70 16 126/82 (97) 97 Room Air 02/22/18 09:25 74 126/60 02/22/18 09:24 74 126/60 02/22/18 06:13 97.7 80 22 128/56 (80) 97 Room Air Vital Signs Date Time Temp Pulse Resp B/P (MAP) Pulse Ox O2 Delivery O2 Flow Rate FiO2 02/24/18 16:56 73 122/58 02/24/18 16:02 98.2 18 94 Room Air I&O Intake and Output 02/24/18 07:00 Intake Total 1200 ml Balance 1200 ml Intake Oral 1200 ml Labs: Laboratory Tests Test 02/24/18 06:18 02/24/18 08:17 02/24/18 11:16 02/24/18 16:48 White Blood Count 5.6 x10^3/uL (4.0-11.0) Red Blood Count 3.83 x10^6/uL (3.50-5.40) Hemoglobin 12.9 g/dL (12.0-15.5) Hematocrit 37.9 % (36.0-47.0) Mean Corpuscular Volume 99 fL (79-100) Mean Corpuscular Hemoglobin 34 pg (25-35) Mean Corpuscular Hemoglobin Concent 34 g/dL (31-37) Red Cell Distribution Width 12.6 % (11.5-14.5) Platelet Count 181 x10^3/uL (140-400) Neutrophils (%) (Auto) 48 % (31-73) Lymphocytes (%) (Auto) 30 % (24-48) Monocytes (%) (Auto) 11 % (0-9) H Eosinophils (%) (Auto) 10 % (0-3) H Basophils (%) (Auto) 1 % (0-3) Neutrophils # (Auto) 2.7 x10^3uL (1.8-7.7) Lymphocytes # (Auto) 1.7 x10^3/uL (1.0-4.8) Monocytes # (Auto) 0.6 x10^3/uL (0.0-1.1) Eosinophils # (Auto) 0.6 x10^3/uL (0.0-0.7) Basophils # (Auto) 0.1 x10^3/uL (0.0-0.2) Sodium Level 135 mmol/L (136-145) L Potassium Level 4.6 mmol/L (3.5-5.1) Chloride Level 101 mmol/L (98-107) Carbon Dioxide Level 29 mmol/L (21-32) Anion Gap 5 (6-14) L Blood Urea Nitrogen 14 mg/dL (7-20) Creatinine 0.9 mg/dL (0.6-1.0) Estimated GFR (Cockcroft-Gault) 59.5 BUN/Creatinine Ratio 16 (6-20) Glucose Level 105 mg/dL (70-99) H Calcium Level 9.0 mg/dL (8.5-10.1) Magnesium Level 2.0 mg/dL (1.8-2.4) Total Bilirubin 0.7 mg/dL (0.2-1.0) Aspartate Amino Transferase (AST) 19 U/L (15-37) Alanine Aminotransferase (ALT) 20 U/L (14-59) Alkaline Phosphatase 67 U/L (46-116) Total Protein 6.6 g/dL (6.4-8.2) Albumin 3.8 g/dL (3.4-5.0) Albumin/Globulin Ratio 1.4 (1.0-1.7) Glucose (Fingerstick) 155 mg/dL (70-99) H 88 mg/dL (70-99) 154 mg/dL (70-99) H Test 02/24/18 19:06 Glucose (Fingerstick) 138 mg/dL (70-99) H Current Medications: Meds: Current Medications Acetaminophen (Tylenol) 650 mg PRN Q6HRS PRN PO PAIN / TEMP; Start 02/17/18 at 21:45 Multi-Ingredient Ointment (Analgesic [place]) 1 ashely PRN QID PRN TP MUSCLE PAIN; Start 02/17/18 at 21:45 Al Hydroxide/Mg Hydroxide (Mylanta Plus Xs) 15 ml PRN AFTMEALHC PRN PO DYSPEPSIA; Start 02/17/18 at 21:45 Magnesium Hydroxide (Milk Of Magnesia) 2,400 mg PRN QHS PRN PO CONSTIPATION; Start 02/17/18 at 21:45 Acetaminophen (Tylenol) 650 mg TID PO Last administered on 02/24/18 20:16; Start 02/18/18 at 09:00 Ascorbic Acid (Vitamin C) 1,000 mg DAILY PO Last administered on 02/24/18at 08: 14; Start 02/18/18 at 09:00 Vitamin D (Vitamin D3) 1,000 unit DAILY PO Last administered on 02/24/18 08:14 ; Start 02/18/18 at 09:00 Cyanocobalamin (Vitamin B-12) 1,000 mcg DAILY PO Last administered on 08:13; Start 02/18/18 at 09:00 Aspirin (Children'S Aspirin) 81 mg DAILYWBKFT PO Last administered on 08:13; Start 02/18/18 at 08:00 Atorvastatin Calcium (Lipitor) 10 mg QHS PO Last administered on 02/24/18 20: 16; Start 02/18/18 at 21:00 Carvedilol (Coreg) 3.125 mg BIDWMEALS PO Last administered on 6/27/18at 16:56; Start 02/18/18 at 08:00 Lactobacillus Rhamnosus (Culturelle) 1 cap DAILY PO Last administered on 08:13; Start 02/18/18 at 09:00 Lisinopril (Prinivil) 40 mg DAILY PO Last administered on 02/24/18 08:14; Start 02/18/18 at 09:00 Pantoprazole Sodium (Protonix) 40 mg DAILYAC PO Last administered on 02/24/18 08:13; Start 02/18/18 at 07:30 Fluvoxamine Maleate (Luvox) 100 mg BID PO Last administered on 02/24/18 20:15 ; Start 02/18/18 at 09:00 Memantine (Namenda) 5 mg BID PO Last administered on 02/24/18 20:15; Start at 09:00 Trazodone HCl (Desyrel) 50 mg PRN QHS PRN PO INSOMNIA Last administered on 02/23at 20:44; Start 02/17/18 at 23:00 Insulin Human Lispro (HumaLOG) 0-5 UNITS TIDWMEALS SQ ; Start 02/19/18 at 08:00 Dextrose 12.5 gm PRN Q15MIN PRN IV SEE COMMENTS; Start 02/18/18 at 18:15 Olanzapine (ZyPREXA ZYDIS) 2.5 mg PRN Q2HR PRN PO PSYCHOSIS Last administered on 02/23/18at 20:44; Start 02/18/18 at 18:30 Buspirone HCl (Buspar) 5 mg BID@0900,1300 PO Last administered on 02/23/18at 14: 33; Start 02/20/18 at 09:00; Stop 02/23/18 at 18:41; Status DC Buspirone HCl (Buspar) 10 mg BID PO Last administered on 02/24/18at 20:15; Start 02/23/18 at 21:00 Active Scripts Active Reported Fluvoxamine Maleate 100 Mg Tablet 100 Mg PO BID Carvedilol 3.125 Mg Tablet 3.125 Mg PO BIDWMEALS Vitamin D3 (Cholecalciferol (Vitamin D3)) 1,000 Unit Tablet 1,000 Unit PO DAILY Vitamin C (Ascorbic Acid) 500 Mg Tablet 1,000 Mg PO DAILY Probiotic (Lactobacillus Acidophilus) 1 Each Capsule 1 Cap PO DAILY Tylenol (Acetaminophen) 325 Mg Tablet 650 Mg PO TID Namenda (Memantine Hcl) 10 Mg Tablet 5 Mg PO BID Vitamin B-12 (Cyanocobalamin (Vitamin B-12)) 1,000 Mcg Tablet 1,000 Mcg PO DAILY Trazodone Hcl 50 Mg Tablet 50 Mg PO PRN QHS PRN Omeprazole 20 Mg Tablet.dr 20 Mg PO DAILY Lisinopril 40 Mg Tablet 40 Mg PO DAILY Atorvastatin Calcium 10 Mg Tablet 10 Mg PO QHS Aspirin 81 Mg Tab.chew 81 Mg PO DAILY I have reviewed the current psychotropics carefully including drug interactions. Risk benefit ratio favors no change other than as noted in my dictated progress note. Diagnosis: Problems: (1) Anxiety disorder (2) Confusion (3) Behavior problem (4) Delusion CINTHIA SOMERS MD Feb 24, 2018 20:26
--- NOTE | 2018-02-24 22:00 | PN ---
DATE: 02/23/2018 This late entry 02/23/2018 covers elements not covered in my initial note. SUBJECTIVE: I met with the patient in the evening. The patient slept 5-1/4 hours previous evening, has been confused, anxious, restless, following others around the unit oblivious the way she is. REVIEW OF SYSTEMS: No CV, , pulmonary, eye, ENT system symptoms on review. Reliability poor. MENTAL STATUS EXAM: Oriented to herself. Insight, judgment, recent and remote memory, attention, concentration, fund of knowledge poor, consistent with her diagnosis mentioned in my initial note. PLAN: Increase BuSpar from 5 mg twice a day to 10 mg twice a day. Continue rest of the psychotropics unchanged. Hopefully, reduction of anxiety with BuSpar should help with mood stabilization. MAN Morgan SOMERS MD DR: ADRIENNE/melisa JOB#: [id number] / [id number]
--- NOTE | 2018-02-24 23:33 | NUR ---
Behavior Intervention Response and Plan: BIRP Note: Behavior: Assumed Care of patient, patient located in Day Room at shift change. Patient exhibited the following behavior Interactive, Social, Calm. Brief assessment on rounds of vital signs, medication needs, lab studies, and pain. Treatment plan problems 1 and 2. Intervention: Patient assessed and the following interventions initiated safety checks 15 Minute Checks Cognitive Assessment , Head to toe Assessment , Medications. Response: After interactions and interventions patient responded in the following manner, Calm , Compliant ,Cooperative. Continue to assess behaviors and condition will continue to monitor throughout the shift as needed. Patient educated on ADL's, and hand hygiene. Plan: Continue to monitor Master Treatment Plan for patient's progress toward short term goals of Decreased Anxiety, Improved Mood, care home goals to return to previous living setting vs placement. Continue to assess patient for changes in above assessment. Monitor for medication needs, pain, and safety concerns. Hourly rounding performed to ensure safe environment.
[2018-02-25 05:37] VITALS: BP 158/85
[2018-02-25] MEDS: INSULIN LISPRO 300 UNITS/3 ML INSULN.PEN. SQ SCH ×3 (08:00→16:37)
[2018-02-25] MEDS: ACETAMINOPHEN 325 MG TABLET PO SCH ×3 (08:53→20:36)
[2018-02-25] MEDS: LACTOBACILLUS RHAMNOSUS GG 1 CAPSULE. PO SCH (08:53)
[2018-02-25] MEDS: MEMANTINE 5 MG TABLET. PO SCH ×2 (08:53→20:36)
[2018-02-25] MEDS: busPIRone 10 MG TABLET. PO SCH ×2 (08:54→20:36)
[2018-02-25] MEDS: LISINOPRIL 20 MG TABLET PO SCH (08:54)
[2018-02-25] MEDS: PANTOPRAZOLE 40 MG TABLET. PO SCH (08:54)
[2018-02-25] MEDS: CHOLECALCIFEROL (VITAMIN D3) 1,000 UNIT TABLET PO SCH (08:54)
[2018-02-25] MEDS: CYANOCOBALAMIN (VITAMIN B-12) 1,000 MCG TABLET. PO SCH (08:54)
[2018-02-25] MEDS: ASCORBIC ACID 500 MG TABLET PO SCH (08:54)
[2018-02-25] MEDS: CARVEDILOL 3.125 MG TABLET PO SCH ×2 (08:55→16:38)
[2018-02-25] MEDS: ASPIRIN 81 MG TAB.CHEW PO SCH (08:55)
--- NOTE | 2018-02-25 15:34 | NUR ---
Behavior Intervention Response and Plan: BIRP Note: Behavior: Assumed Care of patient, patient located in Day Room at shift change. Patient exhibited the following behavior Compliant, Cooperative, Interactive. Brief assessment on rounds of vital signs, medication needs, lab studies, and pain. Treatment plan problems alteration in mood and fall risk. Intervention: Patient assessed and the following interventions initiated safety checks 15 Minute Checks Head to toe Assessment , Cognitive Assessment , Medications. Response: After interactions and interventions patient responded in the following manner, Cooperative , Compliant ,Interactive. Continue to assess behaviors and condition will continue to monitor throughout the shift as needed. Patient educated on ADL's, and hand hygiene. Plan: Continue to monitor Master Treatment Plan for patient's progress toward short term goals of Improved Mood, Decreased Anxiety, correction goals to return to previous living setting vs placement. Continue to assess patient for changes in above assessment. Monitor for medication needs, pain, and safety concerns. Hourly rounding performed to ensure safe environment.
[2018-02-25 16:07] VITALS: BP 125/73
[2018-02-25] MEDS: ATORVASTATIN CALCIUM 10 MG TABLET. PO SCH (20:36)
[2018-02-25] MEDS: CIPROFLOXACIN HCL 250 MG TABLET PO SCH (20:37)
--- NOTE | 2018-02-25 20:56 | PDOC ---
Exam Note: Donaldo Note: Please also refer to the separate dictated note~for this date of service dictated separately.~Patient seen individually. Discussed the patient with Nursing staff reviewed the chart.~Reviewed interim history and current functioning. Reviewed vital signs,~Labs/ Radiology~and current medications noted below. Continue current treatment with the changes noted in the dictated addendum note Assessment: Vital Signs: Vital Signs Date Time Temp Pulse Resp B/P (MAP) Pulse Ox O2 Delivery O2 Flow Rate FiO2 02/25/18 16:38 73 125/73 02/25/18 16:07 98.6 18 96 Room Air I&O Intake and Output 02/25/18 06:59 Intake Total 1080 ml Balance 1080 ml Intake Oral 1080 ml # Voids 1 Labs: Laboratory Tests Test 02/25/18 06:59 02/25/18 11:58 02/25/18 16:18 02/25/18 19:01 Glucose (Fingerstick) 115 mg/dL (70-99) H 79 mg/dL (70-99) 92 mg/dL (70-99) 116 mg/dL (70-99) H Current Medications: Meds: Current Medications Acetaminophen (Tylenol) 650 mg PRN Q6HRS PRN PO PAIN / TEMP; Start 02/17/18 at 21:45 Multi-Ingredient Ointment (Analgesic [employer]) 1 ashely PRN QID PRN TP MUSCLE PAIN; Start 02/17/18 at 21:45 Al Hydroxide/Mg Hydroxide (Mylanta Plus Xs) 15 ml PRN AFTMEALHC PRN PO DYSPEPSIA; Start 02/17/18 at 21:45 Magnesium Hydroxide (Milk Of Magnesia) 2,400 mg PRN QHS PRN PO CONSTIPATION; Start 02/17/18 at 21:45 Acetaminophen (Tylenol) 650 mg TID PO Last administered on 02/25/18at 20:36; Start 02/18/18 at 09:00 Ascorbic Acid (Vitamin C) 1,000 mg DAILY PO Last administered on 02/25/18at 08: 54; Start 02/18/18 at 09:00 Vitamin D (Vitamin D3) 1,000 unit DAILY PO Last administered on 02/25/18at 08:54 ; Start 02/18/18 at 09:00 Cyanocobalamin (Vitamin B-12) 1,000 mcg DAILY PO Last administered on 08:54; Start 02/18/18 at 09:00 Aspirin (Children'S Aspirin) 81 mg DAILYWBKFT PO Last administered on 08:55; Start 02/18/18 at 08:00 Atorvastatin Calcium (Lipitor) 10 mg QHS PO Last administered on 02/25/18 20: 36; Start 02/18/18 at 21:00 Carvedilol (Coreg) 3.125 mg BIDWMEALS PO Last administered on 02/25/18 16:38; Start 02/18/18 at 08:00 Lactobacillus Rhamnosus (Culturelle) 1 cap DAILY PO Last administered on 08:53; Start 02/18/18 at 09:00 Lisinopril (Prinivil) 40 mg DAILY PO Last administered on 02/25/18 08:54; Start 02/18/18 at 09:00 Pantoprazole Sodium (Protonix) 40 mg DAILYAC PO Last administered on 02/25/18 08:54; Start 02/18/18 at 07:30 Fluvoxamine Maleate (Luvox) 100 mg BID PO Last administered on 02/25/18 20:36 ; Start 02/18/18 at 09:00 Memantine (Namenda) 5 mg BID PO Last administered on 02/25/18 20:36; Start at 09:00 Trazodone HCl (Desyrel) 50 mg PRN QHS PRN PO INSOMNIA Last administered on 02/23 20:44; Start 02/17/18 at 23:00 Insulin Human Lispro (HumaLOG) 0-5 UNITS TIDWMEALS SQ ; Start 02/19/18 at 08:00 Dextrose 12.5 gm PRN Q15MIN PRN IV SEE COMMENTS; Start 02/18/18 at 18:15 Olanzapine (ZyPREXA ZYDIS) 2.5 mg PRN Q2HR PRN PO PSYCHOSIS Last administered on 02/23/18 20:44; Start 02/18/18 at 18:30 Buspirone HCl (Buspar) 5 mg BID@0900,1300 PO Last administered on 02/23/18 14: 33; Start 02/20/18 at 09:00; Stop 02/23/18 at 18:41; Status DC Buspirone HCl (Buspar) 10 mg BID PO Last administered on 02/25/18at 20:36; Start 02/23/18 at 21:00 Ciprofloxacin (Cipro) 250 mg BID PO Last administered on 02/25/18at 20:37; Start 02/25/18 at 21:00 Active Scripts Active Reported Fluvoxamine Maleate 100 Mg Tablet 100 Mg PO BID Carvedilol 3.125 Mg Tablet 3.125 Mg PO BIDWMEALS Vitamin D3 (Cholecalciferol (Vitamin D3)) 1,000 Unit Tablet 1,000 Unit PO DAILY Vitamin C (Ascorbic Acid) 500 Mg Tablet 1,000 Mg PO DAILY Probiotic (Lactobacillus Acidophilus) 1 Each Capsule 1 Cap PO DAILY Tylenol (Acetaminophen) 325 Mg Tablet 650 Mg PO TID Namenda (Memantine Hcl) 10 Mg Tablet 5 Mg PO BID Vitamin B-12 (Cyanocobalamin (Vitamin B-12)) 1,000 Mcg Tablet 1,000 Mcg PO DAILY Trazodone Hcl 50 Mg Tablet 50 Mg PO PRN QHS PRN Omeprazole 20 Mg Tablet.dr 20 Mg PO DAILY Lisinopril 40 Mg Tablet 40 Mg PO DAILY Atorvastatin Calcium 10 Mg Tablet 10 Mg PO QHS Aspirin 81 Mg Tab.chew 81 Mg PO DAILY I have reviewed the current psychotropics carefully including drug interactions. Risk benefit ratio favors no change other than as noted in my dictated progress note. Diagnosis: Problems: (1) Anxiety disorder (2) Confusion (3) Behavior problem (4) Delusion CINTHIA SOMERS MD Feb 25, 2018 20:56
--- NOTE | 2018-02-25 23:41 | NUR ---
Behavior Intervention Response and Plan: BIRP Note: Behavior: Assumed Care of patient, patient located in Day Room at shift change. Patient exhibited the following behavior Interactive, Calm, Social. Brief assessment on rounds of vital signs, medication needs, lab studies, and pain. Treatment plan problems 1 and 2. Intervention: Patient assessed and the following interventions initiated safety checks 15 Minute Checks Cognitive Assessment , Head to toe Assessment , Medications. Response: After interactions and interventions patient responded in the following manner, Calm , Compliant ,Cooperative. Continue to assess behaviors and condition will continue to monitor throughout the shift as needed. Patient educated on ADL's, and hand hygiene. Plan: Continue to monitor Master Treatment Plan for patient's progress toward short term goals of Decreased Anxiety, Improved Mood, fdc goals to return to previous living setting vs placement. Continue to assess patient for changes in above assessment. Monitor for medication needs, pain, and safety concerns. Hourly rounding performed to ensure safe environment.
[2018-02-26 06:01] VITALS: BP 163/81
--- NOTE | 2018-02-26 06:42 | NUR ---
Pt very agitated and paranoid this morning. Pt repeatedly pressing her bathroom call light and when staff enters the room to assist her, she says "this is not right, this is all wrong". When asked to explain, pt reports that her clothes are not the right sizes, they are her clothes but they are not right. Pt also complains that the bathroom mirror was not "like that". Staff attempted to calm and re-orient pt but pt stated "I just don't believe it". SANDRA Bernal administered at this time.
[2018-02-26] MEDS: CARVEDILOL 3.125 MG TABLET PO SCH ×2 (07:37→17:38)
[2018-02-26] MEDS: PANTOPRAZOLE 40 MG TABLET. PO SCH (07:38)
[2018-02-26] MEDS: CHOLECALCIFEROL (VITAMIN D3) 1,000 UNIT TABLET PO SCH (07:38)
[2018-02-26] MEDS: CIPROFLOXACIN HCL 250 MG TABLET PO SCH ×2 (07:38→20:30)
[2018-02-26] MEDS: MEMANTINE 5 MG TABLET. PO SCH ×2 (07:38→20:30)
[2018-02-26] MEDS: ASPIRIN 81 MG TAB.CHEW PO SCH (07:38)
[2018-02-26] MEDS: LACTOBACILLUS RHAMNOSUS GG 1 CAPSULE. PO SCH (07:38)
[2018-02-26] MEDS: CYANOCOBALAMIN (VITAMIN B-12) 1,000 MCG TABLET. PO SCH (07:38)
[2018-02-26] MEDS: ASCORBIC ACID 500 MG TABLET PO SCH (07:38)
[2018-02-26] MEDS: busPIRone 10 MG TABLET. PO SCH ×2 (07:38→20:30)
[2018-02-26] MEDS: INSULIN LISPRO 300 UNITS/3 ML INSULN.PEN. SQ SCH ×2 (07:39→12:00)
[2018-02-26] MEDS: ACETAMINOPHEN 325 MG TABLET PO SCH ×3 (07:39→20:31)
[2018-02-26] MEDS: LISINOPRIL 20 MG TABLET PO SCH (07:39)
--- NOTE | 2018-02-26 10:52 | NUR ---
Behavior Intervention Response and Plan: BIRP Note: Behavior: Assumed Care of patient, patient located in Dining Room at shift change. Patient exhibited the following behavior Disorganized, Irritable, Delusions. Brief assessment on rounds of vital signs, medication needs, lab studies, and pain. Treatment plan problems . Intervention: Patient assessed and the following interventions initiated safety checks 15 Minute Checks Cognitive Assessment , Head to toe Assessment , Medications. Response: After interactions and interventions patient responded in the following manner, Disorganized , Wandering ,Compliant. Continue to assess behaviors and condition will continue to monitor throughout the shift as needed. Patient educated on ADL's, and hand hygiene. Plan: Continue to monitor Master Treatment Plan for patient's progress toward short term goals of Decreased Agitation, Decreased Anxiety, terminal supervisor goals to return to previous living setting vs placement. Continue to assess patient for changes in above assessment. Monitor for medication needs, pain, and safety concerns. Hourly rounding performed to ensure safe environment.
[2018-02-26 15:58] VITALS: BP 125/63
--- NOTE | 2018-02-26 16:10 | NUR ---
pt up adl. in am pt was very confused. thinks clothes are different sizes than they were, routine is different and pt doesn't like it. prn zydis given. pt in pleasant spirits in afternoon.
--- NOTE | 2018-02-26 20:03 | PDOC ---
Exam Note: Donaldo Note: Please also refer to the separate dictated note~for this date of service dictated separately.~Patient seen individually. Discussed the patient with Nursing staff reviewed the chart.~Reviewed interim history and current functioning. Reviewed vital signs,~Labs/ Radiology~and current medications noted below. Continue current treatment with the changes noted in the dictated addendum note Assessment: Vital Signs: Vital Signs Date Time Temp Pulse Resp B/P (MAP) Pulse Ox O2 Delivery O2 Flow Rate FiO2 02/26/18 17:38 68 125/63 02/26/18 15:58 98.1 18 97 02/25/18 16:07 Room Air I&O Intake and Output 02/26/18 06:59 Intake Total 840 ml Balance 840 ml Intake Oral 840 ml Labs: Laboratory Tests Test 02/26/18 07:29 02/26/18 11:32 02/26/18 19:03 Glucose (Fingerstick) 123 mg/dL (70-99) H 84 mg/dL (70-99) 136 mg/dL (70-99) H Current Medications: Meds: Current Medications Acetaminophen (Tylenol) 650 mg PRN Q6HRS PRN PO PAIN / TEMP; Start 02/17/18 at 21:45 Multi-Ingredient Ointment (Analgesic [place]) 1 ashely PRN QID PRN TP MUSCLE PAIN; Start 02/17/18 at 21:45 Al Hydroxide/Mg Hydroxide (Mylanta Plus Xs) 15 ml PRN AFTMEALHC PRN PO DYSPEPSIA; Start 02/17/18 at 21:45 Magnesium Hydroxide (Milk Of Magnesia) 2,400 mg PRN QHS PRN PO CONSTIPATION; Start 02/17/18 at 21:45 Acetaminophen (Tylenol) 650 mg TID PO Last administered on 02/26/18at 13:47; Start 02/18/18 at 09:00 Ascorbic Acid (Vitamin C) 1,000 mg DAILY PO Last administered on 02/26/18at 07: 38; Start 02/18/18 at 09:00 Vitamin D (Vitamin D3) 1,000 unit DAILY PO Last administered on 02/26/18at 07:38 ; Start 02/18/18 at 09:00 Cyanocobalamin (Vitamin B-12) 1,000 mcg DAILY PO Last administered on at 07:38; Start 02/18/18 at 09:00 Aspirin (Children'S Aspirin) 81 mg DAILYWBKFT PO Last administered on 07:38; Start 02/18/18 at 08:00 Atorvastatin Calcium (Lipitor) 10 mg QHS PO Last administered on 02/25/18at 20: 36; Start 02/18/18 at 21:00 Carvedilol (Coreg) 3.125 mg BIDWMEALS PO Last administered on 02/26/18 17:38; Start 02/18/18 at 08:00 Lactobacillus Rhamnosus (Culturelle) 1 cap DAILY PO Last administered on 07:38; Start 02/18/18 at 09:00 Lisinopril (Prinivil) 40 mg DAILY PO Last administered on 02/26/18 07:39; Start 02/18/18 at 09:00 Pantoprazole Sodium (Protonix) 40 mg DAILYAC PO Last administered on 02/26/18 07:38; Start 02/18/18 at 07:30 Fluvoxamine Maleate (Luvox) 100 mg BID PO Last administered on 02/26/18 07:38 ; Start 02/18/18 at 09:00 Memantine (Namenda) 5 mg BID PO Last administered on 02/26/18 07:38; Start at 09:00 Trazodone HCl (Desyrel) 50 mg PRN QHS PRN PO INSOMNIA Last administered on 02/23at 20:44; Start 02/17/18 at 23:00 Insulin Human Lispro (HumaLOG) 0-5 UNITS TIDWMEALS SQ ; Start 02/19/18 at 08:00 ; Stop 02/26/18 at 13:10; Status DC Dextrose 12.5 gm PRN Q15MIN PRN IV SEE COMMENTS; Start 02/18/18 at 18:15; Stop 02/26/18 at 13:10; Status DC Olanzapine (ZyPREXA ZYDIS) 2.5 mg PRN Q2HR PRN PO PSYCHOSIS Last administered on 02/26/18at 07:55; Start 02/18/18 at 18:30 Buspirone HCl (Buspar) 5 mg BID@0900,1300 PO Last administered on 02/23/18at 14: 33; Start 02/20/18 at 09:00; Stop 02/23/18 at 18:41; Status DC Buspirone HCl (Buspar) 10 mg BID PO Last administered on 02/26/18at 07:38; Start 02/23/18 at 21:00 Ciprofloxacin (Cipro) 250 mg BID PO Last administered on 02/26/18at 07:38; Start 02/25/18 at 21:00 Active Scripts Active Reported Fluvoxamine Maleate 100 Mg Tablet 100 Mg PO BID Carvedilol 3.125 Mg Tablet 3.125 Mg PO BIDWMEALS Vitamin D3 (Cholecalciferol (Vitamin D3)) 1,000 Unit Tablet 1,000 Unit PO DAILY Vitamin C (Ascorbic Acid) 500 Mg Tablet 1,000 Mg PO DAILY Probiotic (Lactobacillus Acidophilus) 1 Each Capsule 1 Cap PO DAILY Tylenol (Acetaminophen) 325 Mg Tablet 650 Mg PO TID Namenda (Memantine Hcl) 10 Mg Tablet 5 Mg PO BID Vitamin B-12 (Cyanocobalamin (Vitamin B-12)) 1,000 Mcg Tablet 1,000 Mcg PO DAILY Trazodone Hcl 50 Mg Tablet 50 Mg PO PRN QHS PRN Omeprazole 20 Mg Tablet.dr 20 Mg PO DAILY Lisinopril 40 Mg Tablet 40 Mg PO DAILY Atorvastatin Calcium 10 Mg Tablet 10 Mg PO QHS Aspirin 81 Mg Tab.chew 81 Mg PO DAILY I have reviewed the current psychotropics carefully including drug interactions. Risk benefit ratio favors no change other than as noted in my dictated progress note. Diagnosis: Problems: (1) Anxiety disorder (2) Confusion (3) Behavior problem (4) Delusion CINTHIA SOMERS MD Feb 26, 2018 20:03
[2018-02-26] MEDS: ATORVASTATIN CALCIUM 10 MG TABLET. PO SCH (20:30)
--- NOTE | 2018-02-27 00:16 | PN ---
DATE: 02/24/2018 This is a late entry, 02/24/2018, covers the elements not covered in my initial note. SUBJECTIVE: I met with the patient in the evening. The patient slept 5-3/4 hours previous evening, compliant with medications, somewhat anxious, restless, intrusive with other staff and I processed this with her, especially since at times, she is disruptive when she is intrusive with patients. Urine C and S is awaited. REVIEW OF SYSTEMS: No CV, , pulmonary, eye, ENT system symptoms on review. Reliability poor. MENTAL STATUS EXAM: Oriented to herself, situations. Speech coherent, rapid at times. Abstraction fair, computation impaired, language function intact. Mood and affect remain somewhat labile. LABORATORY DATA: Reviewed. IMPRESSION: Unchanged from initial note. PLAN: Continue psychotropics from initial note, await urine culture and sensitivity and treat the urinary tract infection, which would help the agitation as well. MAN Morgan SOMERS MD DR: ADRIENNE/melisa JOB#: [id number] / [id number]
--- NOTE | 2018-02-27 00:19 | PN ---
DATE: 02/25/2018 PSYCHIATRIC PROGRESS NOTE This is a late entry 02/25/2018 covers elements not covered in my initial note. SUBJECTIVE: I met with the patient in the evening. The patient was staffed at a treatment team meeting with the entire team in the morning and the patient's son, Jabier, attended the conference. The patient is sleeping about 6 hours, appetite 80%, still intrusive with other patients and addressed this with her. She had to be removed from the breakfast room on account of above. The son is quite clear he wants her to return to the independent living because the view she has from there is something she could not get anywhere else and seems to calm her down. We have discussed recommendation perhaps for higher level of care, but the son states he has multiple caregivers taking care of her and he visits her on a regular basis to monitor her progress and we will look at changes to a higher level of care if this is not working out post-current hospitalization. REVIEW OF SYSTEMS: No CV, , pulmonary, eye, ENT system symptoms on review. MENTAL STATUS EXAM: Oriented to herself and situation. Speech coherent, rapid at times. Abstraction fair, computation impaired, language function intact. Mood and affect remains anxious, labile. LABORATORY DATA: Reviewed. IMPRESSION: Unchanged from initial note. The patient also has a urinary tract infection, started on Cipro 250 b.i.d. PLAN: Continue rest of the psychotropics from initial note including Luvox along with Zyprexa p.r.n., Namenda, trazodone, and BuSpar. CINTHIA SOMERS MD DR: ADRIENNE/melisa JOB#: [id number] / [id number]
--- NOTE | 2018-02-27 04:36 | NUR ---
Nursing Note Patient located in day room for shift assessment. Patient is alert and oriented to self only. Patient is calm and compliant with medications and assessment. Patient pleasant during interaction. Patient currently in bed sleeping.
[2018-02-27 05:59] VITALS: BP 137/74
[2018-02-27] MEDS: LACTOBACILLUS RHAMNOSUS GG 1 CAPSULE. PO SCH (08:01)
[2018-02-27] MEDS: CYANOCOBALAMIN (VITAMIN B-12) 1,000 MCG TABLET. PO SCH (08:01)
[2018-02-27] MEDS: ACETAMINOPHEN 325 MG TABLET PO SCH ×3 (08:01→20:46)
[2018-02-27] MEDS: busPIRone 10 MG TABLET. PO SCH ×2 (08:01→20:46)
[2018-02-27] MEDS: ASPIRIN 81 MG TAB.CHEW PO SCH (08:01)
[2018-02-27] MEDS: MEMANTINE 5 MG TABLET. PO SCH ×2 (08:01→20:46)
[2018-02-27] MEDS: ASCORBIC ACID 500 MG TABLET PO SCH (08:01)
[2018-02-27] MEDS: CHOLECALCIFEROL (VITAMIN D3) 1,000 UNIT TABLET PO SCH (08:02)
[2018-02-27] MEDS: CIPROFLOXACIN HCL 250 MG TABLET PO SCH ×2 (08:02→20:46)
[2018-02-27] MEDS: LISINOPRIL 20 MG TABLET PO SCH (08:02)
[2018-02-27] MEDS: CARVEDILOL 3.125 MG TABLET PO SCH ×2 (08:02→18:38)
[2018-02-27] MEDS: PANTOPRAZOLE 40 MG TABLET. PO SCH (08:02)
--- NOTE | 2018-02-27 09:34 | NUR ---
Behavior Intervention Response and Plan: BIRP Note: Behavior: Assumed Care of patient, patient located in Dining Room at shift change. Patient exhibited the following behavior Disorganized, Irritable, Delusions. Brief assessment on rounds of vital signs, medication needs, lab studies, and pain. Treatment plan problems . Intervention: Patient assessed and the following interventions initiated safety checks 15 Minute Checks Cognitive Assessment , Head to toe Assessment , Medications. Response: After interactions and interventions patient responded in the following manner, Disorganized , Wandering ,Compliant. Continue to assess behaviors and condition will continue to monitor throughout the shift as needed. Patient educated on ADL's, and hand hygiene. 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 Continue to assess patient for changes in above assessment. Monitor for medication needs, pain, and safety concerns. Hourly rounding performed to ensure safe environment.
--- NOTE | 2018-02-27 16:04 | NUR ---
pt irritable and anxious in am. zydis given. has been pleasant confused most of afternoon. called and spoke with son on phone. visit went well.
[2018-02-27 16:19] VITALS: BP 143/74
[2018-02-27] MEDS: ATORVASTATIN CALCIUM 10 MG TABLET. PO SCH (20:46)
--- NOTE | 2018-02-27 22:31 | PDOC ---
Exam Note: Donaldo Note: Please also refer to the separate dictated note~for this date of service dictated separately.~Patient seen individually. Discussed the patient with Nursing staff reviewed the chart.~Reviewed interim history and current functioning. Reviewed vital signs,~Labs/ Radiology~and current medications noted below. Continue current treatment with the changes noted in the dictated addendum note Assessment: Vital Signs: Vital Signs Date Time Temp Pulse Resp B/P (MAP) Pulse Ox O2 Delivery O2 Flow Rate FiO2 02/27/18 18:38 87 143/74 02/27/18 16:19 97.6 16 97 02/25/18 16:07 Room Air I&O Intake and Output 02/27/18 06:59 Intake Total 1680 ml Balance 1680 ml Intake Oral 1680 ml Current Medications: Meds: Current Medications Acetaminophen (Tylenol) 650 mg PRN Q6HRS PRN PO PAIN / TEMP; Start 02/17/18 at 21:45 Multi-Ingredient Ointment (Analgesic [place]) 1 ashely PRN QID PRN TP MUSCLE PAIN; Start 02/17/18 at 21:45 Al Hydroxide/Mg Hydroxide (Mylanta Plus Xs) 15 ml PRN AFTMEALHC PRN PO DYSPEPSIA; Start 02/17/18 at 21:45 Magnesium Hydroxide (Milk Of Magnesia) 2,400 mg PRN QHS PRN PO CONSTIPATION; Start 02/17/18 at 21:45 Acetaminophen (Tylenol) 650 mg TID PO Last administered on 02/27/18at 20:46; Start 02/18/18 at 09:00 Ascorbic Acid (Vitamin C) 1,000 mg DAILY PO Last administered on 02/27/18 08: 01; Start 02/18/18 at 09:00 Vitamin D (Vitamin D3) 1,000 unit DAILY PO Last administered on 02/27/18 08:02 ; Start 02/18/18 at 09:00 Cyanocobalamin (Vitamin B-12) 1,000 mcg DAILY PO Last administered on 08:01; Start 02/18/18 at 09:00 Aspirin (Children'S Aspirin) 81 mg DAILYWBKFT PO Last administered on 08:01; Start 02/18/18 at 08:00 Atorvastatin Calcium (Lipitor) 10 mg QHS PO Last administered on 6/30/18at 20: 46; Start 02/18/18 at 21:00 Carvedilol (Coreg) 3.125 mg BIDWMEALS PO Last administered on 02/27/18at 18:38; Start 02/18/18 at 08:00 Lactobacillus Rhamnosus (Culturelle) 1 cap DAILY PO Last administered on 08:01; Start 02/18/18 at 09:00 Lisinopril (Prinivil) 40 mg DAILY PO Last administered on 02/27/18 08:02; Start 02/18/18 at 09:00 Pantoprazole Sodium (Protonix) 40 mg DAILYAC PO Last administered on 02/27/18 08:02; Start 02/18/18 at 07:30 Fluvoxamine Maleate (Luvox) 100 mg BID PO Last administered on 02/27/18 20:46 ; Start 02/18/18 at 09:00 Memantine (Namenda) 5 mg BID PO Last administered on 02/27/18 20:46; Start at 09:00 Trazodone HCl (Desyrel) 50 mg PRN QHS PRN PO INSOMNIA Last administered on 02/23 20:44; Start 02/17/18 at 23:00 Insulin Human Lispro (HumaLOG) 0-5 UNITS TIDWMEALS SQ ; Start 02/19/18 at 08:00 ; Stop 02/26/18 at 13:10; Status DC Dextrose 12.5 gm PRN Q15MIN PRN IV SEE COMMENTS; Start 02/18/18 at 18:15; Stop 02/26/18 at 13:10; Status DC Olanzapine (ZyPREXA ZYDIS) 2.5 mg PRN Q2HR PRN PO PSYCHOSIS Last administered on 02/26/18at 07:55; Start 02/18/18 at 18:30 Buspirone HCl (Buspar) 5 mg BID@0900,1300 PO Last administered on 02/23/18at 14: 33; Start 02/20/18 at 09:00; Stop 02/23/18 at 18:41; Status DC Buspirone HCl (Buspar) 10 mg BID PO Last administered on 02/27/18 20:46; Start 02/23/18 at 21:00 Ciprofloxacin (Cipro) 250 mg BID PO Last administered on 02/27/18at 20:46; Start 02/25/18 at 21:00 Quetiapine Fumarate (SEROquel) 12.5 mg DAILY PO ; Start 02/28/18 at 09:00 Active Scripts Active Reported Fluvoxamine Maleate 100 Mg Tablet 100 Mg PO BID Carvedilol 3.125 Mg Tablet 3.125 Mg PO BIDWMEALS Vitamin D3 (Cholecalciferol (Vitamin D3)) 1,000 Unit Tablet 1,000 Unit PO DAILY Vitamin C (Ascorbic Acid) 500 Mg Tablet 1,000 Mg PO DAILY Probiotic (Lactobacillus Acidophilus) 1 Each Capsule 1 Cap PO DAILY Tylenol (Acetaminophen) 325 Mg Tablet 650 Mg PO TID Namenda (Memantine Hcl) 10 Mg Tablet 5 Mg PO BID Vitamin B-12 (Cyanocobalamin (Vitamin B-12)) 1,000 Mcg Tablet 1,000 Mcg PO DAILY Trazodone Hcl 50 Mg Tablet 50 Mg PO PRN QHS PRN Omeprazole 20 Mg Tablet.dr 20 Mg PO DAILY Lisinopril 40 Mg Tablet 40 Mg PO DAILY Atorvastatin Calcium 10 Mg Tablet 10 Mg PO QHS Aspirin 81 Mg Tab.chew 81 Mg PO DAILY I have reviewed the current psychotropics carefully including drug interactions. Risk benefit ratio favors no change other than as noted in my dictated progress note. Diagnosis: Problems: (1) Anxiety disorder (2) Confusion (3) Behavior problem (4) Delusion CINTHIA SOMERS MD Feb 27, 2018 22:31
[2018-02-28] MEDS: traZODone 50 MG TABLET. PO PRN ×2 (00:04→20:29)
--- NOTE | 2018-02-28 00:51 | NUR ---
Nursing Note patient up in hallways and in room. Patient states that she is having difficulty sleeping this night. Patient asked if she would like to take her PRN Trazodone for insomnia and patient agreed. Patient given PRN Trazodone per PRN order.
[2018-02-28 06:18] VITALS: BP 168/92
[2018-02-28] MEDS: LACTOBACILLUS RHAMNOSUS GG 1 CAPSULE. PO SCH (07:45)
[2018-02-28] MEDS: CYANOCOBALAMIN (VITAMIN B-12) 1,000 MCG TABLET. PO SCH (07:45)
[2018-02-28] MEDS: CARVEDILOL 3.125 MG TABLET PO SCH ×2 (07:46→18:15)
[2018-02-28] MEDS: LISINOPRIL 20 MG TABLET PO SCH (07:46)
[2018-02-28] MEDS: ACETAMINOPHEN 325 MG TABLET PO SCH ×3 (07:46→20:29)
[2018-02-28] MEDS: CHOLECALCIFEROL (VITAMIN D3) 1,000 UNIT TABLET PO SCH (07:46)
[2018-02-28] MEDS: ASCORBIC ACID 500 MG TABLET PO SCH (07:46)
[2018-02-28] MEDS: ASPIRIN 81 MG TAB.CHEW PO SCH (07:47)
[2018-02-28] MEDS: CIPROFLOXACIN HCL 250 MG TABLET PO SCH ×2 (07:47→20:29)
[2018-02-28] MEDS: MEMANTINE 5 MG TABLET. PO SCH ×2 (07:47→20:31)
[2018-02-28] MEDS: PANTOPRAZOLE 40 MG TABLET. PO SCH (07:47)
[2018-02-28] MEDS: busPIRone 10 MG TABLET. PO SCH ×2 (07:47→20:29)
[2018-02-28] MEDS: QUEtiapine 25 MG TABLET. PO SCH (07:48)
--- NOTE | 2018-02-28 11:42 | NUR ---
Behavior Intervention Response and Plan: BIRP Note: Behavior: Assumed Care of patient, patient located in Dining Room at shift change. Patient exhibited the following behavior Disorganized, Irritable, Delusions. Brief assessment on rounds of vital signs, medication needs, lab studies, and pain. Treatment plan problems . Intervention: Patient assessed and the following interventions initiated safety checks 15 Minute Checks Cognitive Assessment , Head to toe Assessment , Medications. Response: After interactions and interventions patient responded in the following manner, Disorganized , Wandering ,Compliant. Continue to assess behaviors and condition will continue to monitor throughout the shift as needed. Patient educated on ADL's, and hand hygiene. 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 Continue to assess patient for changes in above assessment. Monitor for medication needs, pain, and safety concerns. Hourly rounding performed to ensure safe environment.
--- NOTE | 2018-02-28 17:00 | NUR ---
pt up adl. occasionally irritable and intrusive. redirectable. compliant with meds and cares.
[2018-02-28] MEDS: ATORVASTATIN CALCIUM 10 MG TABLET. PO SCH (20:29)
[2018-02-28] MEDS: MIRTAZAPINE 7.5 MG TABLET. PO SCH (20:29)
--- NOTE | 2018-02-28 21:02 | PDOC ---
Exam Note: Donaldo Note: Please also refer to the separate dictated note~for this date of service dictated separately.~Patient seen individually. Discussed the patient with Nursing staff reviewed the chart.~Reviewed interim history and current functioning. Reviewed vital signs,~Labs/ Radiology~and current medications noted below. Continue current treatment with the changes noted in the dictated addendum note Assessment: Vital Signs: Vital Signs Date Time Temp Pulse Resp B/P (MAP) Pulse Ox O2 Delivery O2 Flow Rate FiO2 02/28/18 18:15 71 168/92 02/28/18 06:18 97.3 20 98 Room Air I&O Intake and Output 02/28/18 07:00 Intake Total 1160 ml Balance 1160 ml Intake Oral 1160 ml Current Medications: Meds: Current Medications Acetaminophen (Tylenol) 650 mg PRN Q6HRS PRN PO PAIN / TEMP; Start 02/17/18 at 21:45 Multi-Ingredient Ointment (Analgesic [place]) 1 ashely PRN QID PRN TP MUSCLE PAIN; Start 02/17/18 at 21:45 Al Hydroxide/Mg Hydroxide (Mylanta Plus Xs) 15 ml PRN AFTMEALHC PRN PO DYSPEPSIA; Start 02/17/18 at 21:45 Magnesium Hydroxide (Milk Of Magnesia) 2,400 mg PRN QHS PRN PO CONSTIPATION; Start 02/17/18 at 21:45 Acetaminophen (Tylenol) 650 mg TID PO Last administered on 02/28/18at 20:29; Start 02/18/18 at 09:00 Ascorbic Acid (Vitamin C) 1,000 mg DAILY PO Last administered on 02/28/18 07:46 ; Start 02/18/18 at 09:00 Vitamin D (Vitamin D3) 1,000 unit DAILY PO Last administered on 02/28/18 07:46 ; Start 02/18/18 at 09:00 Cyanocobalamin (Vitamin B-12) 1,000 mcg DAILY PO Last administered on 02/28/18 07:45; Start 02/18/18 at 09:00 Aspirin (Children'S Aspirin) 81 mg DAILYWBKFT PO Last administered on 02/28/18 07:47; Start 02/18/18 at 08:00 Atorvastatin Calcium (Lipitor) 10 mg QHS PO Last administered on 02/28/18at 20:29 ; Start 02/18/18 at 21:00 Carvedilol (Coreg) 3.125 mg BIDWMEALS PO Last administered on 02/28/18 18:15; Start 02/18/18 at 08:00 Lactobacillus Rhamnosus (Culturelle) 1 cap DAILY PO Last administered on at 07:45; Start 02/18/18 at 09:00 Lisinopril (Prinivil) 40 mg DAILY PO Last administered on 02/28/18 07:46; Start 02/18/18 at 09:00 Pantoprazole Sodium (Protonix) 40 mg DAILYAC PO Last administered on 02/28/18 07:47; Start 02/18/18 at 07:30 Fluvoxamine Maleate (Luvox) 100 mg BID PO Last administered on 02/28/18 20:27; Start 02/18/18 at 09:00 Memantine (Namenda) 5 mg BID PO Last administered on 02/28/18at 20:31; Start at 09:00 Trazodone HCl (Desyrel) 50 mg PRN QHS PRN PO INSOMNIA Last administered on at 00:04; Start 02/17/18 at 23:00 Insulin Human Lispro (HumaLOG) 0-5 UNITS TIDWMEALS SQ ; Start 02/19/18 at 08:00 ; Stop 02/26/18 at 13:10; Status DC Dextrose 12.5 gm PRN Q15MIN PRN IV SEE COMMENTS; Start 02/18/18 at 18:15; Stop 02/26/18 at 13:10; Status DC Olanzapine (ZyPREXA ZYDIS) 2.5 mg PRN Q2HR PRN PO PSYCHOSIS Last administered on 02/26/18at 07:55; Start 02/18/18 at 18:30 Buspirone HCl (Buspar) 5 mg BID@0900,1300 PO Last administered on 02/23/18at 14: 33; Start 02/20/18 at 09:00; Stop 02/23/18 at 18:41; Status DC Buspirone HCl (Buspar) 10 mg BID PO Last administered on 02/28/18 20:29; Start 02/23/18 at 21:00 Ciprofloxacin (Cipro) 250 mg BID PO Last administered on 7/1/18at 20:29; Start 02/25/18 at 21:00 Quetiapine Fumarate (SEROquel) 12.5 mg DAILY PO Last administered on 02/28/18at 07:48; Start 02/28/18 at 09:00 Mirtazapine (Remeron) 7.5 mg QHS PO Last administered on 02/28/18at 20:29; Start 02/28/18 at 21:00 Active Scripts Active Reported Fluvoxamine Maleate 100 Mg Tablet 100 Mg PO BID Carvedilol 3.125 Mg Tablet 3.125 Mg PO BIDWMEALS Vitamin D3 (Cholecalciferol (Vitamin D3)) 1,000 Unit Tablet 1,000 Unit PO DAILY Vitamin C (Ascorbic Acid) 500 Mg Tablet 1,000 Mg PO DAILY Probiotic (Lactobacillus Acidophilus) 1 Each Capsule 1 Cap PO DAILY Tylenol (Acetaminophen) 325 Mg Tablet 650 Mg PO TID Namenda (Memantine Hcl) 10 Mg Tablet 5 Mg PO BID Vitamin B-12 (Cyanocobalamin (Vitamin B-12)) 1,000 Mcg Tablet 1,000 Mcg PO DAILY Trazodone Hcl 50 Mg Tablet 50 Mg PO PRN QHS PRN Omeprazole 20 Mg Tablet.dr 20 Mg PO DAILY Lisinopril 40 Mg Tablet 40 Mg PO DAILY Atorvastatin Calcium 10 Mg Tablet 10 Mg PO QHS Aspirin 81 Mg Tab.chew 81 Mg PO DAILY I have reviewed the current psychotropics carefully including drug interactions. Risk benefit ratio favors no change other than as noted in my dictated progress note. Diagnosis: Problems: (1) Anxiety disorder (2) Confusion (3) Behavior problem (4) Delusion CINTHIA SOMERS MD Feb 28, 2018 21:02
--- NOTE | 2018-03-01 00:51 | PN ---
DATE: 02/27/2018 PSYCHIATRIC PROGRESS NOTE This is a late entry 02/27/2018, covers elements not covered in my initial note. SUBJECTIVE: I met with the patient in the evening. The patient slept 6-1/4 hours previous evening, somewhat anxious in the morning, received Zyprexa. REVIEW OF SYSTEMS: No CV, , pulmonary, eye, ENT system symptoms on review. Reliability varies. MENTAL STATUS EXAM: Oriented to herself and situation. Speech coherent, somewhat pressured. Abstraction fair, computation impaired, language function intact. Mood and affect somewhat anxious, labile, but improved. LABORATORY DATA: Reviewed. IMPRESSION: Unchanged from initial note. PLAN: Start Seroquel 12.5 mg daily. Continue Luvox, Namenda, BuSpar, trazodone. Treat the UTI, on Cipro. MAN Morgan SOMERS MD DR: ADRIENNE/melisa JOB#: [id number] / [id number]
--- NOTE | 2018-03-01 00:54 | PN ---
DATE: 02/26/2018 This is a late entry, 02/26/2018, covers the elements not covered in my initial note. SUBJECTIVE: I met with the patient in the evening. The patient slept 6 hours previous evening, somewhat anxious in the morning, delusional, believing she was not wearing the right clothes and had the wrong size, received Zyprexa once, and did better. REVIEW OF SYSTEMS: No CV, , pulmonary, eye system symptoms on review. MENTAL STATUS EXAM: Oriented to herself and situation. Speech coherent, at times pressured. Abstraction fair, computation impaired, language function intact, attention span short. Mood and affect somewhat anxious, labile, but improved. LABORATORY DATA: Reviewed. She does have urinary tract infection and is on Cipro for this. IMPRESSION: Unchanged from initial note. PLAN: No change from initial note. Treat the urinary tract infection. She remains on Luvox, Namenda, trazodone, and BuSpar. CINTHIA SOMERS MD DR: ADRIENNE/melisa JOB#: [id number] / [id number]
--- NOTE | 2018-03-01 00:55 | PN ---
DATE: 02/28/2018 PSYCHIATRIC PROGRESS NOTE This note covers elements not covered in my initial note 02/28/2018. SUBJECTIVE: I met with the patient evening of 02/28/2018. The patient slept 2-3/4 hours previous evening. She has been somewhat sarcastic in the morning, med compliant, felt it was shopping investigator, but I saw her in the late evening. REVIEW OF SYSTEMS: No CV, , pulmonary, eye system symptoms on review. MENTAL STATUS EXAM: Oriented to herself and situation. Speech coherent, somewhat pressured at times. Abstraction fair, computation impaired, language function intact, attention span short. Mood and affect still somewhat anxious, labile, but improved. LABORATORY DATA: Reviewed. IMPRESSION: Unchanged from initial note. PLAN: Start Remeron 7.5 mg p.o. at bedtime to help with the insomnia and anxiety. Treat the UTI. Rest unchanged from initial note. MAN Morgan SOMERS MD DR: ADRIENNE/melisa JOB#: [id number] / [id number]
[2018-03-01 06:26] VITALS: BP 125/67
[2018-03-01] MEDS: CARVEDILOL 3.125 MG TABLET PO SCH ×2 (09:10→17:11)
[2018-03-01] MEDS: CYANOCOBALAMIN (VITAMIN B-12) 1,000 MCG TABLET. PO SCH (09:10)
[2018-03-01] MEDS: PANTOPRAZOLE 40 MG TABLET. PO SCH (09:10)
[2018-03-01] MEDS: LACTOBACILLUS RHAMNOSUS GG 1 CAPSULE. PO SCH (09:10)
[2018-03-01] MEDS: ASPIRIN 81 MG TAB.CHEW PO SCH (09:10)
[2018-03-01] MEDS: CIPROFLOXACIN HCL 250 MG TABLET PO SCH ×2 (09:10→20:16)
[2018-03-01] MEDS: CHOLECALCIFEROL (VITAMIN D3) 1,000 UNIT TABLET PO SCH (09:11)
[2018-03-01] MEDS: QUEtiapine 25 MG TABLET. PO SCH (09:11)
[2018-03-01] MEDS: MEMANTINE 5 MG TABLET. PO SCH ×2 (09:11→20:16)
[2018-03-01] MEDS: LISINOPRIL 20 MG TABLET PO SCH (09:11)
[2018-03-01] MEDS: busPIRone 10 MG TABLET. PO SCH (09:11)
[2018-03-01] MEDS: ACETAMINOPHEN 325 MG TABLET PO SCH ×3 (09:12→20:16)
[2018-03-01] MEDS: ASCORBIC ACID 500 MG TABLET PO SCH (09:14)
--- NOTE | 2018-03-01 10:43 | NUR ---
Behavior Intervention Response and Plan: BIRP Note: Behavior: Assumed Care of patient, patient located in Day Room at shift change. Patient exhibited the following behavior Calm, Disorganized, Cooperative. Brief assessment on rounds of vital signs, medication needs, lab studies, and pain. Treatment plan problems 1-2. Intervention: Patient assessed and the following interventions initiated safety checks 15 Minute Checks Cognitive Assessment , Head to toe Assessment , Medications. Response: After interactions and interventions patient responded in the following manner, Disorganized , Compliant ,Interactive. Continue to assess behaviors and condition will continue to monitor throughout the shift as needed. Patient educated on ADL's, and hand hygiene. 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 Continue to assess patient for changes in above assessment. Monitor for medication needs, pain, and safety concerns. Hourly rounding performed to ensure safe environment.
--- NOTE | 2018-03-01 14:49 | NUR ---
LENNY received call from pt's son, Jabier stating he was returning a call from a SW over the weekend. LENNY asked [facility] Nursing if a call was placed over the weekend as LENNY was not available over the weekend to call pt's son. LENNY reported to Jabier SW had not contacted him over the weekend. LENNY discussed new medications started on Thursday and the hope pt would stay thru the holiday for monitoring and adjustments as needed. Jabier was very open to this and asked for LENNY to review current medications and uses. Jabier will plan to medicinal plant picker pt on pending pt is medically ready. LENNY contacted [facility] to inquire about a fax number for medication list to be sent to at ca. LENNY will send med update to Tonie Goodman at [phone]. LENNY also left a message for Johanna, Computer Terminal Operator to further discuss appropriateness of pt returning to Independent Living.
[2018-03-01 16:06] VITALS: BP 114/61
[2018-03-01] MEDS: MIRTAZAPINE 7.5 MG TABLET. PO SCH (20:16)
[2018-03-01] MEDS: ATORVASTATIN CALCIUM 10 MG TABLET. PO SCH (20:16)
--- NOTE | 2018-03-01 21:04 | PDOC ---
Exam Note: Donaldo Note: Please also refer to the separate dictated note~for this date of service dictated separately.~Patient seen individually. Discussed the patient with Nursing staff reviewed the chart.~Reviewed interim history and current functioning. Reviewed vital signs,~Labs/ Radiology~and current medications noted below. Continue current treatment with the changes noted in the dictated addendum note Assessment: Vital Signs: Vital Signs Date Time Temp Pulse Resp B/P (MAP) Pulse Ox O2 Delivery O2 Flow Rate FiO2 03/01/18 17:11 73 114/61 03/01/18 16:06 98.1 18 97 03/01/18 06:26 Room Air I&O Intake and Output 03/01/18 06:59 Intake Total 1320 ml Balance 1320 ml Intake Oral 1320 ml # Voids 1 Current Medications: Meds: Current Medications Acetaminophen (Tylenol) 650 mg PRN Q6HRS PRN PO PAIN / TEMP; Start 02/17/18 at 21:45 Multi-Ingredient Ointment (Analgesic [place]) 1 ashely PRN QID PRN TP MUSCLE PAIN; Start 02/17/18 at 21:45 Al Hydroxide/Mg Hydroxide (Mylanta Plus Xs) 15 ml PRN AFTMEALHC PRN PO DYSPEPSIA; Start 02/17/18 at 21:45 Magnesium Hydroxide (Milk Of Magnesia) 2,400 mg PRN QHS PRN PO CONSTIPATION; Start 02/17/18 at 21:45 Acetaminophen (Tylenol) 650 mg TID PO Last administered on 03/01/18at 20:16; Start 02/18/18 at 09:00 Ascorbic Acid (Vitamin C) 1,000 mg DAILY PO Last administered on 03/01/18at 09:14 ; Start 02/18/18 at 09:00 Vitamin D (Vitamin D3) 1,000 unit DAILY PO Last administered on 03/01/18at 09:11 ; Start 02/18/18 at 09:00 Cyanocobalamin (Vitamin B-12) 1,000 mcg DAILY PO Last administered on 03/01/18 09:10; Start 02/18/18 at 09:00 Aspirin (Children'S Aspirin) 81 mg DAILYWBKFT PO Last administered on 03/01/18 09:10; Start 02/18/18 at 08:00 Atorvastatin Calcium (Lipitor) 10 mg QHS PO Last administered on 03/01/18 20:16 ; Start 02/18/18 at 21:00 Carvedilol (Coreg) 3.125 mg BIDWMEALS PO Last administered on 03/01/18 17:11; Start 02/18/18 at 08:00 Lactobacillus Rhamnosus (Culturelle) 1 cap DAILY PO Last administered on 09:10; Start 02/18/18 at 09:00 Lisinopril (Prinivil) 40 mg DAILY PO Last administered on 03/01/18at 09:11; Start 02/18/18 at 09:00 Pantoprazole Sodium (Protonix) 40 mg DAILYAC PO Last administered on 03/01/18 09:10; Start 02/18/18 at 07:30 Fluvoxamine Maleate (Luvox) 100 mg BID PO Last administered on 03/01/18 20:17; Start 02/18/18 at 09:00 Memantine (Namenda) 5 mg BID PO Last administered on 03/01/18at 20:16; Start at 09:00 Trazodone HCl (Desyrel) 50 mg PRN QHS PRN PO INSOMNIA Last administered on at 00:04; Start 02/17/18 at 23:00 Insulin Human Lispro (HumaLOG) 0-5 UNITS TIDWMEALS SQ ; Start 02/19/18 at 08:00 ; Stop 02/26/18 at 13:10; Status DC Dextrose 12.5 gm PRN Q15MIN PRN IV SEE COMMENTS; Start 02/18/18 at 18:15; Stop 02/26/18 at 13:10; Status DC Olanzapine (ZyPREXA ZYDIS) 2.5 mg PRN Q2HR PRN PO PSYCHOSIS Last administered on 02/26/18at 07:55; Start 02/18/18 at 18:30 Buspirone HCl (Buspar) 5 mg BID@0900,1300 PO Last administered on 02/23/18at 14: 33; Start 02/20/18 at 09:00; Stop 02/23/18 at 18:41; Status DC Buspirone HCl (Buspar) 10 mg BID PO Last administered on 03/01/18at 09:11; Start 02/23/18 at 21:00; Stop 03/01/18 at 18:21; Status DC Ciprofloxacin (Cipro) 250 mg BID PO Last administered on 03/01/18at 20:16; Start 02/25/18 at 21:00 Quetiapine Fumarate (SEROquel) 12.5 mg DAILY PO Last administered on 03/01/18at 09:11; Start 02/28/18 at 09:00 Mirtazapine (Remeron) 7.5 mg QHS PO Last administered on 03/01/18at 20:16; Start 02/28/18 at 21:00 Buspirone HCl (Buspar) 10 mg DAILY@1300 PO ; Start 03/02/18 at 13:00 Buspirone HCl (Buspar) 15 mg DAILY PO ; Start 03/02/18 at 09:00 Active Scripts Active Reported Fluvoxamine Maleate 100 Mg Tablet 100 Mg PO BID Carvedilol 3.125 Mg Tablet 3.125 Mg PO BIDWMEALS Vitamin D3 (Cholecalciferol (Vitamin D3)) 1,000 Unit Tablet 1,000 Unit PO DAILY Vitamin C (Ascorbic Acid) 500 Mg Tablet 1,000 Mg PO DAILY Probiotic (Lactobacillus Acidophilus) 1 Each Capsule 1 Cap PO DAILY Tylenol (Acetaminophen) 325 Mg Tablet 650 Mg PO TID Namenda (Memantine Hcl) 10 Mg Tablet 5 Mg PO BID Vitamin B-12 (Cyanocobalamin (Vitamin B-12)) 1,000 Mcg Tablet 1,000 Mcg PO DAILY Trazodone Hcl 50 Mg Tablet 50 Mg PO PRN QHS PRN Omeprazole 20 Mg Tablet.dr 20 Mg PO DAILY Lisinopril 40 Mg Tablet 40 Mg PO DAILY Atorvastatin Calcium 10 Mg Tablet 10 Mg PO QHS Aspirin 81 Mg Tab.chew 81 Mg PO DAILY I have reviewed the current psychotropics carefully including drug interactions. Risk benefit ratio favors no change other than as noted in my dictated progress note. Diagnosis: Problems: (1) Anxiety disorder (2) Confusion (3) Behavior problem (4) Delusion CINTHIA SOMERS MD Mar 01, 2018 21:04
--- NOTE | 2018-03-01 23:19 | NUR ---
Nursing Note Patient is located in day room for shift assessment and medication pass. Patient is alert and oriented to self only. Patient is interactive with other patients and staff. Patient is calm and cooperative with assessment and medications. Patient took medications whole. Patient took herself to bed and remained there for remainder of shift.
[2018-03-02 06:23] VITALS: BP 145/64
--- NOTE | 2018-03-02 08:30 | NUR ---
Pt very irritable this morning and is refusing to take her am medications. Pt making statements such as "I don't take this many pills." "Who prescribed these?" "I need to see the doctor." "I want to call my son." This RN provided much coaxing and pt did consume some medications. SW also helped to coax the patient with her meds. Pt reminded that she is supposed to be discharging on , but only if she is compliant with her medications. Pt ended up pouring the remainder of her medications in her water and stated "That's it. I'm not taking anymore." Pt then went to the dayroom and continued to be upset about her medications, wanting to see the doctor and wanting to call her son. Pt then escorted out of the dayroom d/t the fact she was disrupting group. Will continue to monitor.
[2018-03-02] MEDS: MEMANTINE 5 MG TABLET. PO SCH ×3 (08:43→21:10)
[2018-03-02] MEDS: ASPIRIN 81 MG TAB.CHEW PO SCH (08:43)
[2018-03-02] MEDS: CARVEDILOL 3.125 MG TABLET PO SCH ×2 (08:43→17:41)
[2018-03-02] MEDS: CYANOCOBALAMIN (VITAMIN B-12) 1,000 MCG TABLET. PO SCH (08:43)
[2018-03-02] MEDS: LISINOPRIL 20 MG TABLET PO SCH (08:43)
[2018-03-02] MEDS: CIPROFLOXACIN HCL 250 MG TABLET PO SCH ×3 (08:43→21:09)
[2018-03-02] MEDS: ASCORBIC ACID 500 MG TABLET PO SCH (08:43)
[2018-03-02] MEDS: ACETAMINOPHEN 325 MG TABLET PO SCH ×3 (08:43→21:09)
[2018-03-02] MEDS: PANTOPRAZOLE 40 MG TABLET. PO SCH (08:44)
[2018-03-02] MEDS: QUEtiapine 25 MG TABLET. PO SCH (08:44)
[2018-03-02] MEDS: CHOLECALCIFEROL (VITAMIN D3) 1,000 UNIT TABLET PO SCH (08:44)
[2018-03-02] MEDS: LACTOBACILLUS RHAMNOSUS GG 1 CAPSULE. PO SCH (08:44)
[2018-03-02] MEDS: busPIRone 15 MG TABLET. PO SCH (08:46)
--- NOTE | 2018-03-02 10:46 | NUR ---
Behavior Intervention Response and Plan: BIRP Note: Behavior: Assumed Care of patient, patient located in Dining Room at shift change. Patient exhibited the following behavior Disorganized, Irritable, Non Compliant with Meds. Brief assessment on rounds of vital signs, medication needs, lab studies, and pain. Treatment plan problems 1-2. Intervention: Patient assessed and the following interventions initiated safety checks 15 Minute Checks Cognitive Assessment , Head to toe Assessment , Medications. Response: After interactions and interventions patient responded in the following manner, Disorganized , Demanding ,Irritable. Continue to assess behaviors and condition will continue to monitor throughout the shift as needed. Patient educated on ADL's, and hand hygiene. Plan: Continue to monitor Master Treatment Plan for patient's progress toward short term goals of Medication Compliance, Improved Mood, terminal carman goals to return to previous living setting vs placement. Continue to assess patient for changes in above assessment. Monitor for medication needs, pain, and safety concerns. Hourly rounding performed to ensure safe environment.
[2018-03-02] MEDS: busPIRone 10 MG TABLET. PO SCH (13:25)
[2018-03-02 16:28] VITALS: BP 137/79
--- NOTE | 2018-03-02 20:45 | PDOC ---
Exam Note: Donaldo Note: Please also refer to the separate dictated note~for this date of service dictated separately.~Patient seen individually. Discussed the patient with Nursing staff reviewed the chart.~Reviewed interim history and current functioning. Reviewed vital signs,~Labs/ Radiology~and current medications noted below. Continue current treatment with the changes noted in the dictated addendum note Assessment: Vital Signs: Vital Signs Date Time Temp Pulse Resp B/P (MAP) Pulse Ox O2 Delivery O2 Flow Rate FiO2 03/02/18 17:41 70 137/79 03/02/18 16:28 97.7 18 93 03/01/18 06:26 Room Air I&O Intake and Output 03/02/18 06:59 Intake Total 1080 ml Balance 1080 ml Intake Oral 1080 ml # Voids 1 Current Medications: Meds: Current Medications Acetaminophen (Tylenol) 650 mg PRN Q6HRS PRN PO PAIN / TEMP; Start 02/17/18 at 21:45 Multi-Ingredient Ointment (Analgesic [place]) 1 ashely PRN QID PRN TP MUSCLE PAIN; Start 02/17/18 at 21:45 Al Hydroxide/Mg Hydroxide (Mylanta Plus Xs) 15 ml PRN AFTMEALHC PRN PO DYSPEPSIA; Start 02/17/18 at 21:45 Magnesium Hydroxide (Milk Of Magnesia) 2,400 mg PRN QHS PRN PO CONSTIPATION; Start 02/17/18 at 21:45 Acetaminophen (Tylenol) 650 mg TID PO Last administered on 03/02/18 13:25; Start 02/18/18 at 09:00 Ascorbic Acid (Vitamin C) 1,000 mg DAILY PO Last administered on 03/02/18 08:43 ; Start 02/18/18 at 09:00 Vitamin D (Vitamin D3) 1,000 unit DAILY PO Last administered on 03/02/18 08:44 ; Start 02/18/18 at 09:00 Cyanocobalamin (Vitamin B-12) 1,000 mcg DAILY PO Last administered on 03/02/18 08:43; Start 02/18/18 at 09:00 Aspirin (Children'S Aspirin) 81 mg DAILYWBKFT PO Last administered on 03/02/18 08:43; Start 02/18/18 at 08:00 Atorvastatin Calcium (Lipitor) 10 mg QHS PO Last administered on 03/01/18 20:16 ; Start 02/18/18 at 21:00 Carvedilol (Coreg) 3.125 mg BIDWMEALS PO Last administered on 03/02/18 17:41; Start 02/18/18 at 08:00 Lactobacillus Rhamnosus (Culturelle) 1 cap DAILY PO Last administered on 08:44; Start 02/18/18 at 09:00 Lisinopril (Prinivil) 40 mg DAILY PO Last administered on 03/02/18 08:43; Start 02/18/18 at 09:00 Pantoprazole Sodium (Protonix) 40 mg DAILYAC PO Last administered on 03/02/18 08:44; Start 02/18/18 at 07:30 Fluvoxamine Maleate (Luvox) 100 mg BID PO Last administered on 03/02/18 08:43; Start 02/18/18 at 09:00 Memantine (Namenda) 5 mg BID PO Last administered on 03/02/18 08:43; Start at 09:00 Trazodone HCl (Desyrel) 50 mg PRN QHS PRN PO INSOMNIA Last administered on at 00:04; Start 02/17/18 at 23:00 Insulin Human Lispro (HumaLOG) 0-5 UNITS TIDWMEALS SQ ; Start 02/19/18 at 08:00 ; Stop 02/26/18 at 13:10; Status DC Dextrose 12.5 gm PRN Q15MIN PRN IV SEE COMMENTS; Start 02/18/18 at 18:15; Stop 02/26/18 at 13:10; Status DC Olanzapine (ZyPREXA ZYDIS) 2.5 mg PRN Q2HR PRN PO PSYCHOSIS Last administered on 02/26/18at 07:55; Start 02/18/18 at 18:30 Buspirone HCl (Buspar) 5 mg BID@0900,1300 PO Last administered on 02/23/18at 14: 33; Start 02/20/18 at 09:00; Stop 02/23/18 at 18:41; Status DC Buspirone HCl (Buspar) 10 mg BID PO Last administered on 03/01/18at 09:11; Start 02/23/18 at 21:00; Stop 03/01/18 at 18:21; Status DC Ciprofloxacin (Cipro) 250 mg BID PO Last administered on 03/02/18at 08:43; Start 02/25/18 at 21:00 Quetiapine Fumarate (SEROquel) 12.5 mg DAILY PO Last administered on 03/02/18at 08:44; Start 02/28/18 at 09:00 Mirtazapine (Remeron) 7.5 mg QHS PO Last administered on 03/01/18at 20:16; Start 02/28/18 at 21:00 Buspirone HCl (Buspar) 10 mg DAILY@1300 PO Last administered on 03/02/18at 13:25 ; Start 03/02/18 at 13:00 Buspirone HCl (Buspar) 15 mg DAILY PO Last administered on 03/02/18at 08:46; Start 03/02/18 at 09:00 Quetiapine Fumarate (SEROquel) 12.5 mg DAILY PO ; Start 03/03/18 at 09:00 Active Scripts Active Reported Fluvoxamine Maleate 100 Mg Tablet 100 Mg PO BID Carvedilol 3.125 Mg Tablet 3.125 Mg PO BIDWMEALS Vitamin D3 (Cholecalciferol (Vitamin D3)) 1,000 Unit Tablet 1,000 Unit PO DAILY Vitamin C (Ascorbic Acid) 500 Mg Tablet 1,000 Mg PO DAILY Probiotic (Lactobacillus Acidophilus) 1 Each Capsule 1 Cap PO DAILY Tylenol (Acetaminophen) 325 Mg Tablet 650 Mg PO TID Namenda (Memantine Hcl) 10 Mg Tablet 5 Mg PO BID Vitamin B-12 (Cyanocobalamin (Vitamin B-12)) 1,000 Mcg Tablet 1,000 Mcg PO DAILY Trazodone Hcl 50 Mg Tablet 50 Mg PO PRN QHS PRN Omeprazole 20 Mg Tablet.dr 20 Mg PO DAILY Lisinopril 40 Mg Tablet 40 Mg PO DAILY Atorvastatin Calcium 10 Mg Tablet 10 Mg PO QHS Aspirin 81 Mg Tab.chew 81 Mg PO DAILY I have reviewed the current psychotropics carefully including drug interactions. Risk benefit ratio favors no change other than as noted in my dictated progress note. Diagnosis: Problems: (1) Anxiety disorder (2) Confusion (3) Behavior problem (4) Delusion CINTHIA SOMERS MD Mar 02, 2018 20:45
[2018-03-02] MEDS: ATORVASTATIN CALCIUM 10 MG TABLET. PO SCH ×2 (21:00→21:09)
[2018-03-02] MEDS: MIRTAZAPINE 7.5 MG TABLET. PO SCH (21:10)
[2018-03-02] MEDS: traZODone 50 MG TABLET. PO PRN (21:38)
--- NOTE | 2018-03-02 22:11 | PN ---
DATE: 03/01/2018 PSYCHIATRIC PROGRESS NOTE This late entry covers elements, not covered in my initial note, 03/01/2018. SUBJECTIVE: I met with the patient in the evening. The patient slept 6-1/4 hours previous evening, quite anxious in the morning, pressing the call light repeatedly. Says she is missing her clothes, received p.r.n. trazodone at night. REVIEW OF SYSTEMS: No CV, , pulmonary, eye, ENT system symptoms on review, fixated on being discharged this evening. MENTAL STATUS EXAM: Oriented to herself and situation. Speech coherent, rapid at times. Abstraction fair, computation impaired, language function intact, attention span short. Mood and affect remain somewhat anxious, labile. LABORATORY DATA: Reviewed. IMPRESSION: Unchanged from initial note. PLAN: Increase BuSpar from 10 mg b.i.d. to 15 mg in the morning and 10 in the evening. Rest unchanged including Luvox, Remeron, Namenda, trazodone. MAN Morgan SOMERS MD DR: ADRIENNE/melisa JOB#: [id number] / [id number]
--- NOTE | 2018-03-02 23:22 | NUR ---
Nursing Note Patient is located in day room and shower room for shift assessment and medication pass. Patient is alert to self only. Patient is very resistive to medications and is willing to take only her Tylenol on first attempt in day room. Patient approached shortly after in shower room and was willing to take her Mirtazapine and PRN Trazodone. Patient continues with paranoid behavior and is very restless in her room after shower. Patient repeatedly pushes her call button but when asked what she need she cannot give and answer. Patient is currently laying in bed resting.
[2018-03-03 06:23] VITALS: BP 125/69
[2018-03-03] MEDS: PANTOPRAZOLE 40 MG TABLET. PO SCH (07:30)
[2018-03-03 07:41] LABS: BASO # 0.1 x10^3/uL (0.0-0.2); BASO % 1 % (0-3); EOS # 0.6 x10^3/uL (0.0-0.7); EOS % 10 % (0-3); HEMATOCRIT 39.9 % (36.0-47.0); HEMOGLOBIN 13.5 g/dL (12.0-15.5); LYMPH # 1.6 x10^3/uL (1.0-4.8); LYMPH % 26 % (24-48); MEAN CORPUSCULAR HEMOGLOBIN 33 pg (25-35); MEAN CORPUSCULAR HGB CONC 34 g/dL (31-37); MEAN CORPUSCULAR VOLUME 97 fL (79-100); MONO # 0.6 x10^3/uL (0.0-1.1); MONO % 9 % (0-9); NEUT # 3.4 x10^3uL (1.8-7.7); NEUT % 54 % (31-73); PLATELET COUNT 184 x10^3/uL (140-400); RED BLOOD COUNT 4.11 x10^6/uL (3.50-5.40); RED CELL DISTRIBUTION WIDTH 12.9 % (11.5-14.5); WHITE BLOOD COUNT 6.3 x10^3/uL (4.0-11.0)
[2018-03-03 07:56] LABS: ALBUMIN 4.3 g/dL (3.4-5.0); ALBUMIN/GLOBULIN RATIO 1.3 (1.0-1.7); CALCIUM 9.5 mg/dL (8.5-10.1); CREATININE 0.9 mg/dL (0.6-1.0); GFR 59.5; POTASSIUM 4.6 mmol/L (3.5-5.1); TOTAL BILIRUBIN 0.9 mg/dL (0.2-1.0); TOTAL PROTEIN 7.5 g/dL (6.4-8.2)
[2018-03-03] MEDS: CARVEDILOL 3.125 MG TABLET PO SCH ×2 (08:00→17:00)
[2018-03-03] MEDS: ASPIRIN 81 MG TAB.CHEW PO SCH (08:00)
[2018-03-03] MEDS: LACTOBACILLUS RHAMNOSUS GG 1 CAPSULE. PO SCH (09:00)
[2018-03-03] MEDS: CHOLECALCIFEROL (VITAMIN D3) 1,000 UNIT TABLET PO SCH (09:00)
[2018-03-03] MEDS: ASCORBIC ACID 500 MG TABLET PO SCH (09:00)
[2018-03-03] MEDS: ACETAMINOPHEN 325 MG TABLET PO SCH ×3 (09:00→21:00)
[2018-03-03] MEDS ORDERED: QUEtiapine 25 MG TABLET. PO SCH (09:00)
[2018-03-03] MEDS: LISINOPRIL 20 MG TABLET PO SCH (09:00)
[2018-03-03] MEDS: CYANOCOBALAMIN (VITAMIN B-12) 1,000 MCG TABLET. PO SCH (09:00)
[2018-03-03] MEDS: MEMANTINE 5 MG TABLET. PO SCH ×2 (10:00→21:00)
[2018-03-03] MEDS: QUEtiapine 25 MG TABLET. PO SCH (10:01)
[2018-03-03] MEDS: CIPROFLOXACIN HCL 250 MG TABLET PO SCH (10:01)
[2018-03-03] MEDS: busPIRone 15 MG TABLET. PO SCH (10:01)
--- NOTE | 2018-03-03 11:44 | NUR ---
Behavior Intervention Response and Plan: BIRP Note: Behavior: Assumed Care of patient, patient located in Day Room at shift change. Patient exhibited the following behavior Disorganized, Resistive, Non Compliant with Meds. Brief assessment on rounds of vital signs, medication needs, lab studies, and pain. Treatment plan problems 1-2. Intervention: Patient assessed and the following interventions initiated safety checks 15 Minute Checks Cognitive Assessment , Head to toe Assessment , Medications. Response: After interactions and interventions patient responded in the following manner, Interactive , Disorganized ,Calm. Continue to assess behaviors and condition will continue to monitor throughout the shift as needed. Patient educated on ADL's, and hand hygiene. 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 Continue to assess patient for changes in above assessment. Monitor for medication needs, pain, and safety concerns. Hourly rounding performed to ensure safe environment.
[2018-03-03] MEDS: busPIRone 10 MG TABLET. PO SCH (13:27)
--- NOTE | 2018-03-03 15:00 | NUR ---
WEEKLY ACTIVITY THERAPY NOTE Date of Admission: 02/17/2018 Date of AT Assessment: 02/22/2018 Goal aimed:to increase engagement and continue socialization Initial Goal: Pt. will participate in at least two groups a day. Goal changed 02/25: Pt. will participate in the majority of groups they are invited to Weekly progress towards goal: achieved Group participation level: moderate to full Behaviors observed: When engaged, Pt. is positive, laughing and chatting often with staff and other patients; Pt. is kind and supportive of other patients; when experiencing a paranoia episode, Pt. is fixated on a specific event (often her medication or 'how others are being treated'), not easily redirected, and irritable; Therapists have noticed that drinking water and taking a walk in order to calm her nerves seems to help; Pt. seems to enjoy music, socializing with others, and the INNFOCUS game played on 03/01 Plan: no change to goal
[2018-03-03 16:23] VITALS: BP 95/65
--- NOTE | 2018-03-03 20:43 | PDOC ---
Exam Note: Donaldo Note: Please also refer to the separate dictated note~for this date of service dictated separately.~Patient seen individually. Discussed the patient with Nursing staff reviewed the chart.~Reviewed interim history and current functioning. Reviewed vital signs,~Labs/ Radiology~and current medications noted below. Continue current treatment with the changes noted in the dictated addendum note Assessment: Vital Signs: Vital Signs Date Time Temp Pulse Resp B/P (MAP) Pulse Ox O2 Delivery O2 Flow Rate FiO2 03/03/18 17:00 83 95/65 03/03/18 16:23 97.4 18 96 03/01/18 06:26 Room Air I&O Intake and Output 03/03/18 07:00 Intake Total 1200 ml Balance 1200 ml Intake Oral 1200 ml # Voids 1 Labs: Laboratory Tests Test 03/03/18 07:13 White Blood Count 6.3 x10^3/uL (4.0-11.0) Red Blood Count 4.11 x10^6/uL (3.50-5.40) Hemoglobin 13.5 g/dL (12.0-15.5) Hematocrit 39.9 % (36.0-47.0) Mean Corpuscular Volume 97 fL (79-100) Mean Corpuscular Hemoglobin 33 pg (25-35) Mean Corpuscular Hemoglobin Concent 34 g/dL (31-37) Red Cell Distribution Width 12.9 % (11.5-14.5) Platelet Count 184 x10^3/uL (140-400) Neutrophils (%) (Auto) 54 % (31-73) Lymphocytes (%) (Auto) 26 % (24-48) Monocytes (%) (Auto) 9 % (0-9) Eosinophils (%) (Auto) 10 % (0-3) H Basophils (%) (Auto) 1 % (0-3) Neutrophils # (Auto) 3.4 x10^3uL (1.8-7.7) Lymphocytes # (Auto) 1.6 x10^3/uL (1.0-4.8) Monocytes # (Auto) 0.6 x10^3/uL (0.0-1.1) Eosinophils # (Auto) 0.6 x10^3/uL (0.0-0.7) Basophils # (Auto) 0.1 x10^3/uL (0.0-0.2) Sodium Level 135 mmol/L (136-145) L Potassium Level 4.6 mmol/L (3.5-5.1) Chloride Level 99 mmol/L (98-107) Carbon Dioxide Level 29 mmol/L (21-32) Anion Gap 7 (6-14) Blood Urea Nitrogen 15 mg/dL (7-20) Creatinine 0.9 mg/dL (0.6-1.0) Estimated GFR (Cockcroft-Gault) 59.5 BUN/Creatinine Ratio 17 (6-20) Glucose Level 107 mg/dL (70-99) H Calcium Level 9.5 mg/dL (8.5-10.1) Total Bilirubin 0.9 mg/dL (0.2-1.0) Aspartate Amino Transferase (AST) 29 U/L (15-37) Alanine Aminotransferase (ALT) 22 U/L (14-59) Alkaline Phosphatase 76 U/L (46-116) Total Protein 7.5 g/dL (6.4-8.2) Albumin 4.3 g/dL (3.4-5.0) Albumin/Globulin Ratio 1.3 (1.0-1.7) Current Medications: Meds: Current Medications Acetaminophen (Tylenol) 650 mg PRN Q6HRS PRN PO PAIN / TEMP; Start 02/17/18 at 21:45 Multi-Ingredient Ointment (Analgesic [place]) 1 ashely PRN QID PRN TP MUSCLE PAIN; Start 02/17/18 at 21:45 Al Hydroxide/Mg Hydroxide (Mylanta Plus Xs) 15 ml PRN AFTMEALHC PRN PO DYSPEPSIA; Start 02/17/18 at 21:45 Magnesium Hydroxide (Milk Of Magnesia) 2,400 mg PRN QHS PRN PO CONSTIPATION; Start 02/17/18 at 21:45 Acetaminophen (Tylenol) 650 mg TID PO Last administered on 03/03/18at 13:28; Start 02/18/18 at 09:00 Ascorbic Acid (Vitamin C) 1,000 mg DAILY PO Last administered on 03/02/18at 08:43 ; Start 02/18/18 at 09:00 Vitamin D (Vitamin D3) 1,000 unit DAILY PO Last administered on 03/02/18at 08:44 ; Start 02/18/18 at 09:00 Cyanocobalamin (Vitamin B-12) 1,000 mcg DAILY PO Last administered on 03/02/18 08:43; Start 02/18/18 at 09:00 Aspirin (Children'S Aspirin) 81 mg DAILYWBKFT PO Last administered on 03/02/18 08:43; Start 02/18/18 at 08:00 Atorvastatin Calcium (Lipitor) 10 mg QHS PO Last administered on 03/01/18 20:16 ; Start 02/18/18 at 21:00 Carvedilol (Coreg) 3.125 mg BIDWMEALS PO Last administered on 03/02/18 17:41; Start 02/18/18 at 08:00 Lactobacillus Rhamnosus (Culturelle) 1 cap DAILY PO Last administered on 08:44; Start 02/18/18 at 09:00 Lisinopril (Prinivil) 40 mg DAILY PO Last administered on 03/02/18 08:43; Start 02/18/18 at 09:00 Pantoprazole Sodium (Protonix) 40 mg DAILYAC PO Last administered on 03/02/18 08:44; Start 02/18/18 at 07:30 Fluvoxamine Maleate (Luvox) 100 mg BID PO Last administered on 03/03/18 10:00; Start 02/18/18 at 09:00 Memantine (Namenda) 5 mg BID PO Last administered on 03/03/18 10:00; Start at 09:00 Trazodone HCl (Desyrel) 50 mg PRN QHS PRN PO INSOMNIA Last administered on 21:38; Start 02/17/18 at 23:00 Insulin Human Lispro (HumaLOG) 0-5 UNITS TIDWMEALS SQ ; Start 02/19/18 at 08:00 ; Stop 02/26/18 at 13:10; Status DC Dextrose 12.5 gm PRN Q15MIN PRN IV SEE COMMENTS; Start 02/18/18 at 18:15; Stop 02/26/18 at 13:10; Status DC Olanzapine (ZyPREXA ZYDIS) 2.5 mg PRN Q2HR PRN PO PSYCHOSIS Last administered on 02/26/18at 07:55; Start 02/18/18 at 18:30 Buspirone HCl (Buspar) 5 mg BID@0900,1300 PO Last administered on 02/23/18at 14: 33; Start 02/20/18 at 09:00; Stop 02/23/18 at 18:41; Status DC Buspirone HCl (Buspar) 10 mg BID PO Last administered on 03/01/18at 09:11; Start 02/23/18 at 21:00; Stop 03/01/18 at 18:21; Status DC Ciprofloxacin (Cipro) 250 mg BID PO Last administered on 03/03/18at 10:01; Start 02/25/18 at 21:00; Stop 03/03/18 at 17:34; Status DC Quetiapine Fumarate (SEROquel) 12.5 mg DAILY PO Last administered on 03/03/18at 10:01; Start 02/28/18 at 09:00; Stop 03/03/18 at 16:16; Status DC Mirtazapine (Remeron) 7.5 mg QHS PO Last administered on 03/02/18at 21:10; Start 02/28/18 at 21:00; Stop 03/03/18 at 16:16; Status DC Buspirone HCl (Buspar) 10 mg DAILY@1300 PO Last administered on 03/03/18at 13:27 ; Start 03/02/18 at 13:00 Buspirone HCl (Buspar) 15 mg DAILY PO Last administered on 03/03/18at 10:01; Start 03/02/18 at 09:00 Quetiapine Fumarate (SEROquel) 12.5 mg DAILY PO ; Start 03/03/18 at 09:00; Stop 03/03/18 at 10:03; Status DC Mirtazapine (Remeron) 15 mg QHS PO ; Start 03/03/18 at 21:00 Quetiapine Fumarate (SEROquel) 12.5 mg BID@0900,1300 PO ; Start 03/04/18 at 09:00 Active Scripts Active Reported Fluvoxamine Maleate 100 Mg Tablet 100 Mg PO BID Carvedilol 3.125 Mg Tablet 3.125 Mg PO BIDWMEALS Vitamin D3 (Cholecalciferol (Vitamin D3)) 1,000 Unit Tablet 1,000 Unit PO DAILY Vitamin C (Ascorbic Acid) 500 Mg Tablet 1,000 Mg PO DAILY Probiotic (Lactobacillus Acidophilus) 1 Each Capsule 1 Cap PO DAILY Tylenol (Acetaminophen) 325 Mg Tablet 650 Mg PO TID Namenda (Memantine Hcl) 10 Mg Tablet 5 Mg PO BID Vitamin B-12 (Cyanocobalamin (Vitamin B-12)) 1,000 Mcg Tablet 1,000 Mcg PO DAILY Trazodone Hcl 50 Mg Tablet 50 Mg PO PRN QHS PRN Omeprazole 20 Mg Tablet.dr 20 Mg PO DAILY Lisinopril 40 Mg Tablet 40 Mg PO DAILY Atorvastatin Calcium 10 Mg Tablet 10 Mg PO QHS Aspirin 81 Mg Tab.chew 81 Mg PO DAILY I have reviewed the current psychotropics carefully including drug interactions. Risk benefit ratio favors no change other than as noted in my dictated progress note. Diagnosis: Problems: (1) Anxiety disorder (2) Confusion (3) Behavior problem (4) Delusion CINTHIA SOMERS MD Mar 03, 2018 20:43
[2018-03-03] MEDS: ATORVASTATIN CALCIUM 10 MG TABLET. PO SCH (21:00)
[2018-03-03] MEDS ORDERED: MIRTAZAPINE 7.5 MG TABLET. PO SCH (21:00)
[2018-03-03] MEDS: traZODone 50 MG TABLET. PO PRN (21:28)
[2018-03-04 05:54] VITALS: BP 151/93
--- NOTE | 2018-03-04 06:27 | NUR ---
Nursing Note Patient located in room for shift assessment. Patient is alert to self only. Patient is compliant with some medications; picking some out and refusing to take them. Patient took medications whole. Patient less demanding this shift. Patient currently located in patient room.
[2018-03-04] MEDS: PANTOPRAZOLE 40 MG TABLET. PO SCH (10:28)
[2018-03-04 10:29] VITALS: BP 151/93
[2018-03-04] MEDS: MEMANTINE 5 MG TABLET. PO SCH (10:29)
[2018-03-04] MEDS: LISINOPRIL 20 MG TABLET PO SCH (10:29)
[2018-03-04] MEDS: CARVEDILOL 3.125 MG TABLET PO SCH (10:29)
[2018-03-04] MEDS: ACETAMINOPHEN 325 MG TABLET PO SCH ×2 (10:30→14:24)
[2018-03-04] MEDS: busPIRone 15 MG TABLET. PO SCH (10:30)
[2018-03-04] MEDS: LACTOBACILLUS RHAMNOSUS GG 1 CAPSULE. PO SCH (10:30)
[2018-03-04] MEDS: ASCORBIC ACID 500 MG TABLET PO SCH (10:30)
[2018-03-04] MEDS: ASPIRIN 81 MG TAB.CHEW PO SCH (10:30)
[2018-03-04] MEDS: CHOLECALCIFEROL (VITAMIN D3) 1,000 UNIT TABLET PO SCH (10:30)
[2018-03-04] MEDS: CYANOCOBALAMIN (VITAMIN B-12) 1,000 MCG TABLET. PO SCH (10:30)
[2018-03-04] MEDS: QUEtiapine 25 MG TABLET. PO SCH ×2 (10:31→14:23)
--- NOTE | 2018-03-04 11:18 | NUR ---
Pt refused most am medications, picking a few out and agreeing to take those. Pt very argumentative during med pass.
--- NOTE | 2018-03-04 11:35 | NUR ---
[facility] Social Work Discharge Planning Form Patient Name RYAN SEGOVIA Admit Date: 02/17/18 DISCHARGE PLAN Discharge Destination: return to [facility] Transportation: Jabier, son, to supervisor picking crew 03/04/18 @ [id number] Special Instructions/Notes: Please fax dc summary to PCP and Facility, call meds into Pharmacy DISCHARGE TO FACILITY Facility: [facility] Address: [address] [place] [id number] Contact Name: Nursing in Independent Living PCP: Dr. Braden Biggs's office w/Megan Panchal NP [address] [place] [address] PHONE: [phone] FAX: [phone] Follow up appointment scheduled for Thursday, March 10, 2018 @ 3:30pm Pharmacy: [facility] @ [address] [facility] PHONE: [phone]
--- NOTE | 2018-03-04 12:04 | NUR ---
Behavior Intervention Response and Plan: BIRP Note: Behavior: Assumed Care of patient, patient located in Day Room at shift change. Patient exhibited the following behavior Disorganized, Irritable, Non Compliant with Meds. Brief assessment on rounds of vital signs, medication needs, lab studies, and pain. Treatment plan problems 1-2. Intervention: Patient assessed and the following interventions initiated safety checks 15 Minute Checks Cognitive Assessment , Head to toe Assessment , Medications. Response: After interactions and interventions patient responded in the following manner, Wandering , Interactive ,Non Compliant with Meds. Continue to assess behaviors and condition will continue to monitor throughout the shift as needed. Patient educated on ADL's, and hand hygiene. Plan: Continue to monitor Master Treatment Plan for patient's progress toward short term goals of Medication Compliance, Improved Mood, correction goals to return to previous living setting vs placement. Continue to assess patient for changes in above assessment. Monitor for medication needs, pain, and safety concerns. Hourly rounding performed to ensure safe environment.
--- NOTE | 2018-03-04 12:52 | NUR ---
LENNY contacted pt's facility and spoke w/Florence, nursing in the Independent living side regarding dc plans for today. Florence stated pt's son had not notified them of her dc today. LENNY explained dc had tentatively been set for today, but this facility had attempted to cancel it as pt has not been med compliant for the last several days. Due to pt's son's insistence, pt will continue to be dc later this afternoon. LENNY faxed updated clinical notes and stated nursing will also fax dc summary and med rec today prior to dc.
[2018-03-04] MEDS ORDERED: ACET325T9 PO (13:04)
[2018-03-04] MEDS ORDERED: MAGN2400 PO (13:05)
[2018-03-04] MEDS ORDERED: MIRT15TA PO (13:06)
[2018-03-04] MEDS ORDERED: METH29OI TP (13:06)
[2018-03-04] MEDS ORDERED: OLAN2.5T3 PO (13:07)
[2018-03-04] MEDS ORDERED: BUSP10TA PO (13:08)
[2018-03-04] MEDS ORDERED: QUET25TA5 PO (13:08)
[2018-03-04] MEDS ORDERED: BUSP15TA PO (13:09)
[2018-03-04] MEDS: busPIRone 10 MG TABLET. PO SCH (14:23)
--- NOTE | 2018-03-04 15:18 | NUR ---
Transition Record was faxed to follow-up provider with the following elements: Reason for admission, procedures, tests, principal diagnosis, pending studies, patient instructions, 23/03 contact information for unit, phone number to obtain pending test results, plan for follow-up care, physician follow-up, advanced directive information, and medication list with dose, duration and instructions. This information was included in the following documents: History and physical, lab results, study results, progress notes, social work planning form, DC instruction form, patient visit summary, and medication reconciliation form. Date & time record faxed:03/04/18 1437 Record faxed to:Megan Lozano NP Record discussed with/ report given to: nurse in Independent Living
--- NOTE | 2018-03-04 18:01 | PDOC ---
Exam Note: Donaldo Note: Please also refer to the separate dictated note~for this date of service dictated separately.~Patient seen individually. Discussed the patient with Nursing staff reviewed the chart.~Reviewed interim history and current functioning. Reviewed vital signs,~Labs/ Radiology~and current medications noted below. Continue current treatment with the changes noted in the dictated addendum note Assessment: Vital Signs: Vital Signs Date Time Temp Pulse Resp B/P (MAP) Pulse Ox O2 Delivery O2 Flow Rate FiO2 03/04/18 10:29 95 151/93 03/04/18 05:54 98.2 16 97 03/01/18 06:26 Room Air I&O Intake and Output 03/04/18 07:00 Intake Total 1430 ml Balance 1430 ml Intake Oral 1430 ml # Voids 1 Current Medications: Meds: Current Medications Acetaminophen (Tylenol) 650 mg PRN Q6HRS PRN PO PAIN / TEMP; Start 02/17/18 at 21:45; Stop 03/04/18 at 15:20; Status DC Multi-Ingredient Ointment (Analgesic [place]) 1 breanne PRN QID PRN TP MUSCLE PAIN; Start 02/17/18 at 21:45; Stop 03/04/18 at 15:20; Status DC Al Hydroxide/Mg Hydroxide (Mylanta Plus Xs) 15 ml PRN AFTMEALHC PRN PO DYSPEPSIA; Start 02/17/18 at 21:45; Stop 03/04/18 at 15:20; Status DC Magnesium Hydroxide (Milk Of Magnesia) 2,400 mg PRN QHS PRN PO CONSTIPATION; Start 02/17/18 at 21:45; Stop 03/04/18 at 15:20; Status DC Acetaminophen (Tylenol) 650 mg TID PO Last administered on 03/04/18at 14:24; Start 02/18/18 at 09:00; Stop 03/04/18 at 15:20; Status DC Ascorbic Acid (Vitamin C) 1,000 mg DAILY PO Last administered on 03/04/18at 10:30 ; Start 02/18/18 at 09:00; Stop 03/04/18 at 15:20; Status DC Vitamin D (Vitamin D3) 1,000 unit DAILY PO Last administered on 03/04/18at 10:30 ; Start 02/18/18 at 09:00; Stop 03/04/18 at 15:20; Status DC Cyanocobalamin (Vitamin B-12) 1,000 mcg DAILY PO Last administered on 03/04/18 10:30; Start 02/18/18 at 09:00; Stop 03/04/18 at 15:20; Status DC Aspirin (Children'S Aspirin) 81 mg DAILYWBKFT PO Last administered on 03/04/18 10:30; Start 02/18/18 at 08:00; Stop 03/04/18 at 15:20; Status DC Atorvastatin Calcium (Lipitor) 10 mg QHS PO Last administered on 03/01/18 20:16 ; Start 02/18/18 at 21:00; Stop 03/04/18 at 15:20; Status DC Carvedilol (Coreg) 3.125 mg BIDWMEALS PO Last administered on 03/04/18 10:29; Start 02/18/18 at 08:00; Stop 03/04/18 at 15:20; Status DC Lactobacillus Rhamnosus (Culturelle) 1 cap DAILY PO Last administered on 10:30; Start 02/18/18 at 09:00; Stop 03/04/18 at 15:20; Status DC Lisinopril (Prinivil) 40 mg DAILY PO Last administered on 03/04/18 10:29; Start 02/18/18 at 09:00; Stop 03/04/18 at 15:20; Status DC Pantoprazole Sodium (Protonix) 40 mg DAILYAC PO Last administered on 03/04/18 10:28; Start 02/18/18 at 07:30; Stop 03/04/18 at 15:20; Status DC Fluvoxamine Maleate (Luvox) 100 mg BID PO Last administered on 03/04/18 10:28; Start 02/18/18 at 09:00; Stop 03/04/18 at 15:20; Status DC Memantine (Namenda) 5 mg BID PO Last administered on 03/04/18 10:29; Start at 09:00; Stop 03/04/18 at 15:20; Status DC Trazodone HCl (Desyrel) 50 mg PRN QHS PRN PO INSOMNIA Last administered on at 21:38; Start 02/17/18 at 23:00; Stop 03/04/18 at 15:20; Status DC Insulin Human Lispro (HumaLOG) 0-5 UNITS TIDWMEALS SQ ; Start 02/19/18 at 08:00 ; Stop 02/26/18 at 13:10; Status DC Dextrose 12.5 gm PRN Q15MIN PRN IV SEE COMMENTS; Start 02/18/18 at 18:15; Stop 02/26/18 at 13:10; Status DC Olanzapine (ZyPREXA ZYDIS) 2.5 mg PRN Q2HR PRN PO PSYCHOSIS Last administered on 02/26/18at 07:55; Start 02/18/18 at 18:30; Stop 03/04/18 at 15:20; Status DC Buspirone HCl (Buspar) 5 mg BID@0900,1300 PO Last administered on 02/23/18at 14: 33; Start 02/20/18 at 09:00; Stop 02/23/18 at 18:41; Status DC Buspirone HCl (Buspar) 10 mg BID PO Last administered on 03/01/18at 09:11; Start 02/23/18 at 21:00; Stop 03/01/18 at 18:21; Status DC Ciprofloxacin (Cipro) 250 mg BID PO Last administered on 03/03/18at 10:01; Start 02/25/18 at 21:00; Stop 03/03/18 at 17:34; Status DC Quetiapine Fumarate (SEROquel) 12.5 mg DAILY PO Last administered on 03/03/18at 10:01; Start 02/28/18 at 09:00; Stop 03/03/18 at 16:16; Status DC Mirtazapine (Remeron) 7.5 mg QHS PO Last administered on 03/02/18at 21:10; Start 02/28/18 at 21:00; Stop 03/03/18 at 16:16; Status DC Buspirone HCl (Buspar) 10 mg DAILY@1300 PO Last administered on 03/04/18at 14:23 ; Start 03/02/18 at 13:00; Stop 03/04/18 at 15:20; Status DC Buspirone HCl (Buspar) 15 mg DAILY PO Last administered on 03/04/18at 10:30; Start 03/02/18 at 09:00; Stop 03/04/18 at 15:20; Status DC Quetiapine Fumarate (SEROquel) 12.5 mg DAILY PO ; Start 03/03/18 at 09:00; Stop 03/03/18 at 10:03; Status DC Mirtazapine (Remeron) 15 mg QHS PO Last administered on 03/03/18at 21:28; Start 03/03/18 at 21:00; Stop 03/04/18 at 15:20; Status DC Quetiapine Fumarate (SEROquel) 12.5 mg BID@0900,1300 PO Last administered on 03/04/18at 14:23; Start 03/04/18 at 09:00; Stop 03/04/18 at 15:20; Status DC Active Scripts Active Reported Buspirone Hcl 15 Mg Tablet 15 Mg PO DAILY Buspirone Hcl 10 Mg Tablet 10 Mg PO DAILY@1300 Seroquel (Quetiapine Fumarate) 25 Mg Tablet 12.5 Mg PO BID@0900,1300 Zyprexa (Olanzapine) 2.5 Mg Tablet 2.5 Mg PO PRN Q2HR PRN Remeron (Mirtazapine) 15 Mg Tablet 15 Mg PO QHS Analgesic [place] (Methyl Salicylate/Menthol) 28 Gm Oint...g. 1 Breanne TP PRN QID PRN Milk Of Magnesia (Magnesium Hydroxide) 2,400 Mg/10 Ml Oral.susp 2,400 Mg PO PRN QHS PRN Tylenol (Acetaminophen) 325 Mg Tablet 650 Mg PO PRN Q6HRS PRN Fluvoxamine Maleate 100 Mg Tablet 100 Mg PO BID Carvedilol 3.125 Mg Tablet 3.125 Mg PO BIDWMEALS Vitamin D3 (Cholecalciferol (Vitamin D3)) 1,000 Unit Tablet 1,000 Unit PO DAILY Vitamin C (Ascorbic Acid) 500 Mg Tablet 1,000 Mg PO DAILY Tylenol (Acetaminophen) 325 Mg Tablet 650 Mg PO TID Namenda (Memantine Hcl) 10 Mg Tablet 5 Mg PO BID Vitamin B-12 (Cyanocobalamin (Vitamin B-12)) 1,000 Mcg Tablet 1,000 Mcg PO DAILY Trazodone Hcl 50 Mg Tablet 50 Mg PO PRN QHS PRN Omeprazole 20 Mg Tablet.dr 20 Mg PO DAILY Lisinopril 40 Mg Tablet 40 Mg PO DAILY Atorvastatin Calcium 10 Mg Tablet 10 Mg PO QHS Aspirin 81 Mg Tab.chew 81 Mg PO DAILY I have reviewed the current psychotropics carefully including drug interactions. Risk benefit ratio favors no change other than as noted in my dictated progress note. 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
--- NOTE | 2018-03-04 20:02 | DS ---
DATE OF DISCHARGE: 03/04/2018 This note covers elements not covered in my initial note 03/04/2018. REASON FOR ADMISSION: Please refer to the admission history for details. Briefly, the patient is an 87-year-old female referred to us from [facility] Room where she presented from [facility] on account of worsening confusion, being delusional, paranoid, suspicious, irritable and labile. She had failed outpatient psychiatric interventions. Behaviors were deemed potentially dangerous due to the worsening cognition and psychotic symptoms. She had failed outpatient psychiatric interventions resulting in this referral. SIGNIFICANT FINDINGS AND CLINICAL COURSE: Following admission, the patient was seen daily individually by myself from a psychiatric standpoint, medical followup per Dr. Coronado/Dr. Ball. She remained quite confused, anxious, labile in her mood. Adjustments were made in her psychotropics and she has seemed to be doing somewhat better on a combination of Seroquel 12.5 mg 9:00 a.m., 1:00 p.m., Remeron 15 mg at bedtime, fluvoxamine 100 mg b.i.d. for her obsessive-compulsive symptoms, Namenda 5 mg b.i.d., trazodone 50 mg at bedtime p.r.n., BuSpar 15 mg, 0900, 10 mg at 1300. Seroquel 12.5 mg daily was increased to twice a day. Prior to discharge on 03/04/2018, no CV, , pulmonary, eye, ENT system symptoms on review. MENTAL STATUS EXAM: Oriented to herself and situation. Speech coherent, rapid at times. Abstraction fair, computation impaired, language function intact, attention span short. Mood and affect remain somewhat anxious, at times labile. We had a lengthy treatment meeting with the entire team morning of 03/04/2018 with the patient's son. We had recommended further inpatient psychiatric stabilization, but the son was quite clear he had extra help at the facility to help provide for her cares. She did complete her course of antibiotics for the UTI which would help as well. Prior to discharge, her Seroquel twice a day was changed to 25 mg at bedtime to help with compliance. No active suicidal or homicidal ideation prior to discharge. Intellect average. Insight poor. Judgment marginal. Short term memory is impaired. CONDITION AT DISCHARGE: Improved. FINAL DIAGNOSES: Major neurocognitive disorder, Alzheimer, vascular with delusion, depression, behavioral disturbance; anxiety disorder, unspecified; impulse control disorder, unspecified; status post urinary tract infection. Rest unchanged from admission. DISCHARGE MEDICATIONS: Please refer to the MRAD. FOLLOWUP: Outpatient psychiatric medical followup at the Assisted Living. Time for discharge day management greater than 30 minutes. MAN Morgan SOMERS MD DR: ADRIENNE/melisa JOB#: [id number] / [id number]
--- NOTE | 2018-03-04 20:55 | PN ---
DATE: 03/02/2018 This late entry, date of service 03/02/2018, covers elements not covered in my initial note. SUBJECTIVE: I met with the patient in the evening. The patient slept 8 hours previous evening, somewhat resistive to medications, confused, forgetful, argumentative. At time, she does not take her medications, was talking to the door intermittently, psychotic. REVIEW OF SYSTEMS: No CV, , pulmonary, eye, ENT system symptoms on review. MENTAL STATUS EXAM: Oriented to herself and situation. Speech is coherent, can be rapid at times. Abstraction fair, computation impaired, language function intact, attention span short. Mood and affect somewhat anxious. She is confused. She felt it was the morning time, and I met her in the evening. LABORATORY DATA: Reviewed. IMPRESSION: Unchanged from initial note. PLAN: Start Seroquel 12.5 mg 9:00 a.m. Rest psychotropics unchanged. MAN MBisi SOMERS MD DR: ADRIENNE/melisa JOB#: [id number] / [id number]
--- NOTE | 2018-03-04 21:01 | PN ---
DATE: 03/03/2018 This late entry, date of service 03/03/2018, covers elements not covered in my initial note. SUBJECTIVE: I met with the patient in the evening. The patient slept 2-1/2 hours previous evening. She had a very difficult night the previous night, refused her medications, was up much of the night, slept 2-1/2 hours, had to be placed in the West hallway to isolate herself, was banging on the window, screaming at times. Trazodone and Remeron were arranged by nursing staff. During the day on 03/03/2018, she has been quite intrusive. No CV, , pulmonary, eye system symptoms on review. MENTAL STATUS EXAM: Oriented to herself and situation. Speech coherent, can be rapid at times. Abstraction fair, computation impaired, language function intact, attention span short. Mood and affect somewhat labile. LABORATORY DATA: Reviewed. IMPRESSION: Unchanged from initial note. PLAN: Increase Remeron to 15 mg at bedtime, increase Seroquel to 12.5 mg at 9:00 a.m., 1:00 p.m. Continue rest unchanged. MAN MBisi SOMERS MD DR: ADRIENNE/melisa JOB#: [id number] / [id number]
== END 2018-03-04 15:20 | DRG 57 ==
LOC: GEROPSY 20:45
PROVIDERS: ADMIT Psychiatry & Neurology Psychiatry; ATTEND Psychiatry & Neurology Psychiatry
DX: G30.9 Alzheimer's disease, unspecified (principal); F02.81 Dementia in other diseases classified elsewhere, unspecified severity, with behavioral disturbance; F01.51 Vascular dementia, unspecified severity, with behavioral disturbance; N39.0 Urinary tract infection, site not specified; E11.9 Type 2 diabetes mellitus without complications; E78.5 Hyperlipidemia, unspecified; F32.9 Major depressive disorder, single episode, unspecified; F41.9 Anxiety disorder, unspecified; F63.9 Impulse disorder, unspecified; I10 Essential (primary) hypertension; K59.09 Other constipation; I48.0 Paroxysmal atrial fibrillation; K21.9 Gastro-esophageal reflux disease without esophagitis; M19.90 Unspecified osteoarthritis, unspecified site; M81.0 Age-related osteoporosis without current pathological fracture; Z66 Do not resuscitate; Z79.899 Other long term (current) drug therapy; Z80.9 Family history of malignant neoplasm, unspecified; Z86.010 Personal history of colon polyps; Z86.73 Personal history of transient ischemic attack (TIA), and cerebral infarction without residual deficits; Z90.710 Acquired absence of both cervix and uterus; Z87.440 Personal history of urinary (tract) infections
CPT/HCPCS: 36415; 80053; 80061; 81001; 82306; 82607; 82947; 83036; 83540; 83550; 83735; 84436; 84443; 84480; 85007; 85025; 86592; 87086; 87186; 93005; J1815